=== PATIENT | male | born 1940 | race Caucasian/White ===

== ENCOUNTER 2016-05-11 10:23 | Day surgery (SDC) | payer OTHER ==
[2016-05-10 14:35] VITALS: BMI 24.7
[2016-05-11 12:22] VITALS: TEMP 98
[2016-05-11 14:03] VITALS: BP 117/57; PULSE 46
--- NOTE | 2016-05-12 13:03 | PATH ---
Surgical Pathology Report Patient Name: ASHISH SCHULZ [facility]. Rec. #: [id number] /Age/Gender: 1940 (Age: 76) / M Account: [id number] Location: [facility]-ENDOSCOPY Taken: 05/11/2016 Received: 05/11/2016 Reported: 05/12/2016 Physicians: Neville Serna D.O. Specimen(s) Received A: BX PYLORIC ULCER B: BX DUODENAL BULB SCAR C: BX ANTRUM & BODY D: BX DISTAL ESOPHAGUS Clinical History GERD Reflux esophagitis, gastric ulcer, gastritis Final Diagnosis A. PYLORIC ULCER, BIOPSY: GASTRIC ANTRAL-TYPE MUCOSA WITH ACTIVE MODERATE TO MARKED CHRONIC GASTRITIS WITH FOCAL SURFACE ULCERATION AND MILD REACTIVE GASTROPATHY. IMMUNOSTAIN FOR H. PYLORI IS POSITIVE FOR ORGANISMS (MODERATE NUMBER OF ORGANISMS). B. 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 NO HISTOLOGIC EVIDENCE OF GLUTEN SENSITIVE ENTEROPATHY (CELIAC DISEASE). C. STOMACH, ANTRUM AND BODY, BIOPSY: GASTRIC ANTRAL AND NECK SINCE MUCOSA WITH ACTIVE MARKED CHRONIC GASTRITIS. IMMUNOSTAIN FOR H. PYLORI IS POSITIVE FOR ORGANISMS (NUMEROUS ORGANISMS). D. ESOPHAGUS, DISTAL, BIOPSY: SQUAMOUS EPITHELIUM WITH CHRONIC INFLAMMATION AND REFLUX TYPE CHANGES. NO COLUMNAR EPITHELIUM PRESENT (NO INTESTINAL METAPLASIA/VELEZ'S ESOPHAGUS IDENTIFIED). Electronically Signed Jaron Choi M.D. Gross Description A. Received in formalin, labeled "biopsy pyloric ulcer" is a louis, irregular portion of soft tissue measuring 0.2 cm in greatest dimension. The specimen is submitted in toto in one cassette. B. Received in formalin, labeled "biopsy duodenal bulb scar" are 3 louis, irregular portions of soft tissue averaging 0.1 cm in greatest dimension. The specimens are submitted in toto in one cassette. C. Received in formalin, labeled "biopsy antrum and body" are 2 louis, irregular portions of soft tissue averaging 0.2 cm in greatest dimension. The specimens are submitted in toto in one cassette. D. Received in formalin, labeled "biopsy distal esophagus" are 2 louis, irregular portions of soft tissue averaging 0.1 cm in greatest dimension. The specimens are submitted in toto in one cassette. 05/11/201605/11/2016
== END 2016-05-11 13:30 | disposition home or self-care (01) ==
LOC: JASU-ENDO 10:23
PROVIDERS: ATTEND Internal Medicine Gastroenterology
PROC: 0DB68ZX Excision of Stomach, Via Natural or Artificial Opening Endoscopic, Diagnostic (ICD-10-PCS; 2016-05-11)
PROC: 0DB58ZX Excision of Esophagus, Via Natural or Artificial Opening Endoscopic, Diagnostic (ICD-10-PCS; 2016-05-11)
PROC: 0DB98ZX Excision of Duodenum, Via Natural or Artificial Opening Endoscopic, Diagnostic (ICD-10-PCS; principal; 2016-05-11 11:30)
DX: K21.0 Gastro-esophageal reflux disease with esophagitis (principal); K25.9 Gastric ulcer, unspecified as acute or chronic, without hemorrhage or perforation
CPT/HCPCS: 88305-TC; 88342-TC

== ENCOUNTER 2016-05-18 07:47 | Day surgery (SDC) | payer OTHER ==
[2016-05-17 13:11] VITALS: BMI 24.7
[2016-05-18] MEDS ORDERED: LIDOCAINE HCL/PF 1% SDV 5ML VIAL ONE (09:07)
[2016-05-18] MEDS ORDERED: PROPOFOL 20 ML ONE ×4 (09:07)
[2016-05-18 09:53] VITALS: TEMP 98.2
[2016-05-18 10:31] VITALS: BP 102/56; PULSE 54
== END 2016-05-18 10:56 | disposition home or self-care (01) ==
LOC: JASU-ENDO 07:47
PROVIDERS: ATTEND Internal Medicine Gastroenterology
PROC: 0DJD8ZZ Inspection of Lower Intestinal Tract, Via Natural or Artificial Opening Endoscopic (ICD-10-PCS; principal; 2016-05-18 09:00)
DX: Z12.11 Encounter for screening for malignant neoplasm of colon (principal); K57.30 Diverticulosis of large intestine without perforation or abscess without bleeding; K64.4 Residual hemorrhoidal skin tags

== ENCOUNTER 2018-09-28 14:37 | Inpatient (IN) | payer OTHER | END 2018-09-29 18:26 | disposition home or self-care (01) | LOC: JER 14:37 → JERBED 16:58 → J4W 21:00 ==

== ENCOUNTER 2019-04-26 04:34 | Day surgery (SDC) | payer OTHER ==
[2019-04-20 14:19] VITALS: BMI 22.8
[2019-04-26] MEDS ORDERED: ROCURONIUM BROMIDE 50 MG/5 ML SYRINGE ONE (11:27)
[2019-04-26] MEDS ORDERED: PROPOFOL 20 ML ONE (11:40)
--- NOTE | 2019-04-26 12:21 | PROC ---
Procedure Note Procedure: Procedure Note Under informed consent a bilateral Fiberoptic Bronchoscopy was performed. The patient was placed under anesthesia and intubated. The bronchoscope was inserted via the ETT and advanced to the walt which appeared sharp. The left mainstem was then entered and a complete inspection bronchoscopy was performed. Abnormal LLL anatomy noted due to previous resection. There was minimal thin secretions noted. No endobronchial lesions. The bronchoscope was withdrawn to the walt. The right mainstem was entered and a complete inspection bronchscopy was performed. There was minimal thin secretions noted. No endobronchial lesions noted. The bronchoscope was then positioned at the right middle lobe segments. No gross abnormalities were noted. Washings, brushings, and biopsies were taken from the middle and lateral lobes and sent for appropriate testing. The bronchoscope was withdrawn from the patient. No complications were noted. Patient to be transferred to the PACU and CXR to be completed to R/O PTX. Dr Hanson
[2019-04-26] MEDS ORDERED: oxyCODONE HCL 5 MG TABLET PO PRN (12:35)
[2019-04-26] MEDS ORDERED: ONDANSETRON 4 MG/2 ML VIAL IVPUSH PRN (12:35)
[2019-04-26] MEDS ORDERED: LACTATED RINGERS SOLUTION 1,000 ML IV SCH (12:45)
[2019-04-26 15:16] VITALS: BP 130/76; PULSE 51; TEMP 97.8
--- NOTE | 2019-04-27 12:51 | PATH ---
Cytology Non-Gynecological Report Patient Name: ASHISH SCHULZ [facility] [place]. Rec. #: [id number] /Age/Gender: 1940 (Age: 79) / M Account: [id number] Location: [facility] Taken: 04/26/2019 Received: 04/26/2019 Reported: 04/27/2019 Physicians: Segundo Hanson M.D. Specimen(s) Received A: BRONCHIAL WASHING B: BRONCHIAL BRUSHING MEDIAL SEGMENT RIGHT MIDDLE LOBE C: BRONCHIAL BRUSHING LATERAL SEGMENT RIGHT MIDDLE LOBE Clinical History Right lung mass, no endobronchial lesion Final Diagnosis A. BRONCHIAL WASHING FOR CYTOLOGY: SATISFACTORY FOR EVALUATION. NO MALIGNANT CELLS IDENTIFIED. BRONCHIAL CELLS AND ALVEOLAR MACROPHAGES PRESENT. B. BRONCHIAL BRUSHING, MEDIAL SEGMENT, MIDDLE LOBE, RIGHT, FOR CYTOLOGY: SATISFACTORY FOR EVALUATION. NO MALIGNANT CELLS IDENTIFIED. BRONCHIAL CELLS AND ISOLATED DEGENERATED MACROPHAGES PRESENT. C. BRONCHIAL BRUSHING, LATERAL SEGMENT, MIDDLE LOBE, RIGHT, FOR CYTOLOGY: SATISFACTORY FOR EVALUATION. NO MALIGNANT CELLS IDENTIFIED. BRONCHIAL CELLS AND ALVEOLAR MACROPHAGES PRESENT. Comment: See concurrent materials ([id number]). Electronically Signed Gail Rice M.D. Gross Description A. Approximately 10 cc of bloody fluid received fresh. One cytofunnel prepared and Pap stained. One cellblock prepared. B. Received brush in approximately 30 cc of clear fluid fixed in 50% alcohol. One cytofunnel and direct smear prepared and Pap stained. One cellblock prepared. C. Received brush in approximately 30 cc of clear fluid fixed in 50% alcohol. One cytofunnel and direct smear prepared and Pap stained. One cellblock prepared.
--- NOTE | 2019-04-27 13:05 | PATH ---
Surgical Pathology Report Patient Name: ASHISH SCHULZ [facility]. Rec. #: [id number] /Age/Gender: 1940 (Age: 79) / M Account: [id number] Location: [facility] Taken: 04/26/2019 Received: 04/26/2019 Reported: 04/27/2019 Physicians: Segundo Hanson M.D. Specimen(s) Received RIGHT MIDDLE LOBE BIOPSY Clinical History Right lung mass Final Diagnosis MIDDLE LOBE, RIGHT, BRONCHOSCOPY WITH BIOPSY: BENIGN BRONCHIAL MUCOSA WITH FOCAL MILD FIBROSIS. NO MALIGNANCY IDENTIFIED. DEEPER LEVELS HAVE BEEN EXAMINED. Comment: Suggest clinical and radiologic correlation. See concurrent cytology ([id number]) Electronically Signed Gail Rice M.D. Gross Description Received in formalin labeled "biopsy of right middle lobe," is a 0.4 x 0.3 x 0.1 cm aggregate of louis soft tissue fragments. The formalin is filtered and the specimen is entirely submitted in one cassette. /04/26/2019 saudi04/26/2019
== END 2019-04-26 15:00 | disposition home or self-care (01) ==
LOC: JASU-SURG 04:34
PROVIDERS: ATTEND Internal Medicine Pulmonary Disease
PROC: 0BDD8ZX Extraction of Right Middle Lung Lobe, Via Natural or Artificial Opening Endoscopic, Diagnostic (ICD-10-PCS; 2019-04-26)
PROC: 0BB58ZX Excision of Right Middle Lobe Bronchus, Via Natural or Artificial Opening Endoscopic, Diagnostic (ICD-10-PCS; principal; 2019-04-26 11:30)
DX: D14.31 Benign neoplasm of right bronchus and lung (principal)
CPT/HCPCS: 71045-TC-FY; 76000-TC-FY; 87070; 87075; 87102; 87116; 87205; 87206; 87210; 88104; 88108; 88305-TC; 94760

== ENCOUNTER 2019-06-12 16:44 | Inpatient (IN) | payer OTHER ==
--- NOTE | 2019-06-12 16:59 | PDOC ---
Rapid Medical Evaluation Chief Complaint: Lightheaded Time Seen by Provider: 06/12/19 16:57 Medical Evaluation: Allergies Allergy/AdvReac Type Severity Reaction Status Date / Time No Known Allergies Allergy Verified 06/12/19 16:51 Vital Signs Temp Pulse Resp BP Pulse Ox 98.3 F 63 18 128/62 97 06/12/19 16:52 06/12/19 16:52 06/12/19 16:52 06/12/19 16:52 06/12/19 16:52 06/12/19 16:57 Pt presents for dizziness and headache starting yesterday. He has a diagnosis of vertigo however, he states this episode was different from his usual dizziness. Exam: No gross neuro deficits Orders: CT, labs, EKG Pt to proceed to the ER for further evaluation Discharge Disposition - Diagnosis Dizziness - Referrals - Patient Instructions - Post Discharge Activity
[2019-06-12 17:25] LABS: BASO % 0.7 % (0-2.0); EOS % 0.6 % (0-4.5); HEMATOCRIT 33.6 % (35.4-49); HEMOGLOBIN 11.3 GM/dL (11.7-16.9); LYMPH % 20.4 % (8-40); MCH 32.5 pg (25.7-33.7); MCHC 33.7 g/dl (32.0-35.9); MEAN CELL VOLUME 96.5 fl (80-96); MEAN PLT VOLUME 8.1 fl (7.5-11.1); MONO % 6.6 % (3.8-10.2); NEUT % 71.7 % (42.8-82.8); PLATELET COUNT 147 K/MM3 (134-434); RBC 3.48 M/mm3 (4.00-5.60); WHITE BLOOD COUNT 4.7 K/mm3 (4.0-10.0)
[2019-06-12 17:26] LABS: PH,URINE 6.5 (5.0-8.0); URINE APPEARANCE CLEAR; URINE BILIRUBIN NEGATIVE (NEGATIVE); URINE COLOR YELLOW; URINE GLUCOSE (UA) NEGATIVE (NEGATIVE); URINE KETONE NEGATIVE (NEGATIVE); URINE LEUK ESTERASE NEGATIVE (NEGATIVE); URINE NITRITE NEGATIVE (NEGATIVE); URINE PROTEIN NEGATIVE (NEGATIVE); URINE UROBILINOGEN 0.2 mg/dL (0.2-1.0)
--- NOTE | 2019-06-12 17:54 | PDOC ---
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 Pt states that yesterday when he was driving he had sudden onset of vertigo with R sided facial pains which felt like pins and needles and felt the R side of his face twitching. He pulled over and stated the episode lasted for 5 minutes. Does not know if he lost consciousness but the episode resolved and he went home. Today pt states he was walking outside, had sudden onset of vertigo and stated he was making a repetitive noise with his mouth and had a headache. Episode lasted a few minutes and resolved. Pt states he did not lose consciousness but grabbed on to a side rail to prevent him from falling. He has not had symptoms like this before. He denies incontinence during these episodes. He currently denies tinnitus, headache, changes in vision, numbness/ tingling, weakness, ataxia, head injuries, chest pain, sob, abdominal pain, n/v/ d, recent illnesses, recent travel, recent surgeries. Denies use of drugs, alcohol. PMD: Ivy Robles Neuro: Meri? Cards: Fredi Onc: Edwige PMH: see hpi PSH: see hpi Meds: Micardis, Flomax Allergies: nkda Social: denies Past History - Past Medical History Allergies/Adverse Reactions: Allergies Allergy/AdvReac Type Severity Reaction Status Date / Time No Known Allergies Allergy Verified 06/12/19 16:51 Home Medications: Ambulatory Orders Tamsulosin HCl [Flomax] 0.4 mg PO HS 05/10/16 Telmisartan [Micardis] 20 mg PO DAILY 05/10/16 Cancer: Yes (lung) Cardiac Disorders: (bradycardia) COPD: No GI Disorders: Yes (REFLUX) Disorders: Yes (BPH) HTN: Yes Thyroid Disease: Yes (vertigo) - Surgical History Lung Surgery: Yes (Left Lower lobe resection) - Psycho Social/Smoking Cessation Hx Smoking History: Former smoker Have you smoked in the past 12 months: No If you are a former smoker, when did you quit?: 1996 Information on smoking cessation initiated: No Hx Alcohol Use: No Drug/Substance Use Hx: No Substance Use Type: None Hx Substance Use Treatment: No Review of Systems - Review of Systems Constitutional: No: Symptoms Reported HEENTM: No: Symptoms Reported Respiratory: No: Symptoms reported Cardiac (ROS): No: Symptoms Reported ABD/GI: No: Symptoms Reported : No: Symptoms Reported Musculoskeletal: No: Symptoms Reported Integumentary: No: Symptoms Reported Neurological: Yes: See HPI *Physical Exam - Vital Signs Last Vital Signs Temp Pulse Resp BP Pulse Ox 98.3 F 63 18 128/62 97 06/12/19 16:52 06/12/19 16:52 06/12/19 16:52 06/12/19 16:52 06/12/19 16:52 - Physical Exam General Appearance: Yes: Nourished, Appropriately Dressed, Thin. No: Apparent Distress HEENT: positive: EOMI, BARBRA, Normal ENT Inspection, TMs Normal, Pharynx Normal. negative: Scleral Icterus (R), Scleral Icterus (L) Neck: positive: Trachea midline, Supple. negative: Carotid bruit, Lymphadenopathy (R), Lymphadenopathy (L) Respiratory/Chest: positive: Lungs Clear, Normal Breath Sounds. negative: Crackles, Rales, Rhonchi, Stridor, Wheezing Cardiovascular: positive: Regular Rhythm, Regular Rate, S1, S2. negative: Edema , JVD, Murmur Vascular Pulses: Dorsalis-Pedis (R): 2+, Doralis-Pedis (L): 2+ Gastrointestinal/Abdominal: positive: Normal Bowel Sounds, Soft. negative: Tender Musculoskeletal: positive: Normal Inspection. negative: CVA Tenderness Extremity: positive: Normal Capillary Refill. 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 negative: Facial Droop, Numbness, Sensory Deficit, Confused, Disoriented ED Treatment Course - LABORATORY CBC & Chemistry Diagram: 06/12/19 17:12 06/12/19 17:12 - ADDITIONAL ORDERS Additional order review: Laboratory Results 06/12/19 17:12 Urine Color Yellow Urine Appearance Clear Urine pH 6.5 Ur Specific Watts 1.006 L Urine Protein Negative Urine Glucose (UA) Negative Urine Ketones Negative Urine Blood Negative Urine Nitrite Negative Urine Bilirubin Negative Urine Urobilinogen 0.2 Ur Leukocyte Esterase Negative 06/12/19 17:12 RBC 3.48 L MCV 96.5 H MCHC 33.7 RDW 14.0 MPV 8.1 Neutrophils % 71.7 Lymphocytes % 20.4 D Monocytes % 6.6 Eosinophils % 0.6 Basophils % 0.7 Medical Decision Making - Medical Decision Making 06/12/19 18:12 79y M presenting to ED for vertigo with facial pains/convulsions. vitals wnl ddx includes but not limited to partial seizures, cva, encephalitis, trigeminal neuralgia, GCA, electrolyte abnormality, malignancy, migraine low suspicion for CVA given symptoms. labs ordered by RME as well as CT. pt asymptomatic at this time, normal neurological exam. Negative HINTS will consult neurology 06/12/19 18:38 CT per my read showing a L frontal lobe hemorrhage with possible underlying metastatic disease surrounding edema, no midline shift. consulted neurology; recommended consult to nsgy. Keppra 500mg BID. NSGY- no surgery at this time; likely mets from melanoma. recommended steroids. will give Decadron 10mg iv. Discussed case with Dr. Robles; accepts pt. labs at baseline however slight bump in Cr and BUN elevation; will give fluids. ekg: sinus bradycardia with 1st degree AV block at 50bpm pr 250 no mar or depressions. no twi. will order TS, coags. Giving 1g keppra and 10mg decadron. Explained findings to patient and next steps. pt is hemodynamically stable; ICH score of 0. NIHSS 0 does not require acute intervention at this time. will admit. Discharge - Discharge Information Problems reviewed: Yes Clinical Impression/Diagnosis: Brain mass, Intracranial hemorrhage Condition: Stable - Admission Yes - Follow up/Referral - Patient Discharge Instructions - Post Discharge Activity
[2019-06-12 17:59] LABS: ALBUMIN 3.4 g/dl (3.4-5.0); ALK PHOS 85 U/L (45-117); ANION GAP 7 MMOL/L (8-16); BILIRUBIN,TOTAL 0.4 mg/dL (0.2-1); BLOOD UREA NITROGEN 18.3 mg/dL (7-18); CALCIUM 9.1 mg/dL (8.5-10.1); CHLORIDE 103 mmol/L (98-107); CO2 26 mmol/L (21-32); CREATININE 1.3 mg/dL (0.55-1.3); GLUCOSE,RANDOM 101 mg/dL (74-106); POTASSIUM 4.4 mmol/L (3.5-5.1); SGOT/AST 25 U/L (15-37); SGPT/ALT 28 U/L (13-61); SODIUM 137 mmol/L (136-145); TOT PROT 8.7 g/dl (6.4-8.2)
--- NOTE | 2019-06-12 18:01 | PDOC ---
Attending Attestation - Resident Resident Name: Nena Butcher - ED Attending Attestation I have performed the following: I have examined & evaluated the patient, The case was reviewed & discussed with the resident, I agree w/resident's findings & plan, Exceptions are as noted - HPI HPI: 06/12/19 17:59 79-year-old male with past medical history of hypertension, lung cancer status post right lower lobe lobectomy in 2018 and BPH experienced 2 episodes of sudden dizziness associated with headache and involuntary facial twitching. these episodes lasted about 5 minutes each - Physicial Exam PE: 06/12/19 18:02 79 yo male in no acute distress presents after several w episodes of headache, sudden dizziness and involuntary facial twitching 06/12/19 18:03 head ncat eyes ana paula eomi neck supple lungs cta b/l cvs [id number] abd nontedner skin waRM AND DRY EXTREMTIES NO EDEMA NEURO AXOX3,AMBULATORY - Medical Decision Making 06/12/19 18:01 79-year-old male with a history of vertigo and lung cancer has been followed by a neurologist for the vertigo in the past Plan head CT, labs, neuro consult 06/12/19 18:37 ct scan head +L frontal lobe hemorrhage w possible underlying neoplasm plan contact Dr Robles,neurology 06/12/19 18:54
[2019-06-12] MEDS ORDERED: SODIUM CHLORIDE 1,000 ML IV STA (18:23)
[2019-06-12] MEDS ORDERED: levETIRAcetam 500 MG/5 ML INJECTION VIAL IVPB ONE ×2 (18:53→19:20)
[2019-06-12] MEDS ORDERED: DEXAMETHASONE SOD PHOSPHATE 10 MG/1 ML VIAL IVPUSH ONE (19:07)
[2019-06-12] MEDS ORDERED: DEXAMETHASONE SOD PHOSPHATE 10 MG/1 ML VIAL ONE (19:21)
[2019-06-12 20:19] LABS: INR 1.15 (0.83-1.09); PROTHROMBIN TIME (PATIENT) 13.6 SEC (9.7-13.0)
[2019-06-12] MEDS ORDERED: levETIRAcetam 500 MG/5 ML INJECTION VIAL IVPB SCH (22:00)
[2019-06-12] MEDS ORDERED: ACETAMINOPHEN 325 MG TABLET (FP) PO PRN (22:59)
[2019-06-13] MEDS ORDERED: levETIRAcetam 500 MG/5 ML INJECTION VIAL IVPB ONE (08:15)
[2019-06-13] MEDS ORDERED: LOSARTAN POTASSIUM 50 MG TABLET (FP) ONE (08:15)
[2019-06-13] MEDS ORDERED: TAMSULOSIN HCL 0.4 MG CAP ONE (08:16)
[2019-06-13] MEDS: TAMSULOSIN HCL 0.4 MG CAP PO SCH (08:33)
[2019-06-13] MEDS: levETIRAcetam 500 MG/5 ML INJECTION VIAL IVPB SCH ×3 (08:33→21:26)
--- NOTE | 2019-06-13 08:46 | CONSULT ---
Consult - text type - Consultation Consultation Note: Neurology History of Present Illness - General Chief Complaint: Lightheaded History Source: Patient Exam Limitations: No Limitations PCP: Dr. 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 Pt stated that on day prior to admission when he was driving he had sudden onset of vertigo with R sided facial pains which felt like pins and needles and felt the R side of his face twitching. He pulled over and stated the episode lasted for 5 minutes. Does not know if he lost consciousness but the episode resolved and he went home. On day of admission, pt stated he was walking outside, had sudden onset of vertigo and stated he was making a repetitive noise with his mouth and had a headache. Episode lasted a few minutes and resolved. Pt stated he did not lose consciousness but grabbed on to a side rail to prevent him from falling. He has not had symptoms like this before. He denied incontinence during these episodes. He denied tinnitus, headache, changes in vision, numbness/tingling, weakness, ataxia, head injuries, chest pain, sob, abdominal pain, n/v/d, recent illnesses, recent travel, recent surgeries. Denied use of drugs, alcohol. I was contacted by the emergency department evening of admission and advised Ct of head performed and showed a solitary 2.7x1.7x1.7 cm left frontal lobe hemorrhage is seen with mild surrounding edemaa-possible underlying neoplastic disease. Chronic sphenoid sinusitis. discussed with Dr. Karan grady also reviewed the images and felt lesion was suspicious for metastatic melanoma. I advised starting patient on Keppra for seizure prophylaxis, neurosurgery note reviewed, Decadron recommended. Next steps would be to obtain MRI with and without contrast to further delineate the lesion and for oncology management if lesion is confirmed to be metastatic melanoma. I discussed the findings along with plan with the patient who was in agreement. Past History Cancer: Yes (lung) Cardiac Disorders: (bradycardia) COPD: No GI Disorders: Yes (REFLUX) Disorders: Yes (BPH) HTN: Yes Thyroid Disease: Yes (vertigo) - Family History HTN Surgical History Lung Surgery: Yes (Left Lower lobe resection) - Psycho Social/Smoking Cessation Hx Smoking History: Former smoker Have you smoked in the past 12 months: No If you are a former smoker, when did you quit?: 1996 Information on smoking cessation initiated: No Hx Alcohol Use: No Drug/Substance Use Hx: No Substance Use Type: None Hx Substance Use Treatment: No Review of Systems - Review of Systems Constitutional: No: Symptoms Reported HEENTM: No: Symptoms Reported Respiratory: No: Symptoms reported Cardiac (ROS): No: Symptoms Reported ABD/GI: No: Symptoms Reported : No: Symptoms Reported Musculoskeletal: No: Symptoms Reported Integumentary: No: Symptoms Reported Neurological: Yes: See HPI Allergies/Adverse Reactions: Allergies Allergy/AdvReac Type Severity Reaction Status Date / Time No Known Allergies Allergy Verified 06/12/19 16:51 Home Medications: Ambulatory Orders Tamsulosin HCl [Flomax] 0.4 mg PO HS 05/10/16 Telmisartan [Micardis] 20 mg PO DAILY 05/10/16 Active Medications Acetaminophen (Tylenol -) 650 mg PO Q6H PRN PRN Reason: PAIN 1-5 Levetiracetam (Keppra Injection -) 500 mg IVPB BID [facility] Last Admin: 06/13/19 08:33 Dose: 500 mg Losartan Potassium (Cozaar -) 25 mg PO DAILY [facility] Tamsulosin HCl (Flomax -) 0.4 mg PO DAILY@0830 [facility] Last Admin: 06/13/19 08:33 Dose: 0.4 mg *Physical Exam - Vital Signs Vital Signs Period Temp Pulse Resp BP Sys/Giordano Pulse Ox Last 24 Hr 97.3 F-98.3 F 40-63 15-18 85-128/52-62 96-98 - Physical Exam General Appearance: Yes: Nourished, Appropriately Dressed, Thin. No: Apparent Distress HEENT: positive: EOMI, BARBRA, Normal ENT Inspection, TMs Normal, Pharynx Normal. negative: Scleral Icterus (R), Scleral Icterus (L) Neck: positive: Trachea midline, Supple. negative: Carotid bruit, Lymphadenopathy (R), Lymphadenopathy (L) Respiratory/Chest: positive: Lungs Clear, Normal Breath Sounds. negative: Crackles, Rales, Rhonchi, Stridor, Wheezing Cardiovascular: positive: Regular Rhythm, Regular Rate, S1, S2. negative: Edema , JVD, Murmur Vascular Pulses: Dorsalis-Pedis (R): 2+, Doralis-Pedis (L): 2+ Gastrointestinal/Abdominal: positive: Normal Bowel Sounds, Soft. negative: Tender Musculoskeletal: positive: Normal Inspection. negative: CVA Tenderness Extremity: positive: Normal Capillary Refill. 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 negative: Facial Droop, Numbness, Sensory Deficit, Confused, Disoriented CBCD WBC 4.7 K/mm3 (4.0-10.0) 06/12/19 17:12 RBC 3.48 M/mm3 (4.00-5.60) L 06/12/19 17:12 Hgb 11.3 GM/dL (11.7-16.9) L 06/12/19 17:12 Hct 33.6 % (35.4-49) L 06/12/19 17:12 MCV 96.5 fl (80-96) H 06/12/19 17:12 MCHC 33.7 g/dl (32.0-35.9) 06/12/19 17:12 RDW 14.0 % (11.9-15.9) 06/12/19 17:12 Plt Count 147 K/MM3 (134-434) 06/12/19 17:12 MPV 8.1 fl (7.5-11.1) 06/12/19 17:12 CMP Sodium 137 mmol/L (136-145) 06/12/19 17:12 Potassium 4.4 mmol/L (3.5-5.1) 06/12/19 17:12 Chloride 103 mmol/L (98-107) 06/12/19 17:12 Carbon Dioxide 26 mmol/L (21-32) 06/12/19 17:12 Anion Gap 7 MMOL/L (8-16) L 06/12/19 17:12 BUN 18.3 mg/dL (7-18) H 06/12/19 17:12 Creatinine 1.3 mg/dL (0.55-1.3) 06/12/19 17:12 Random Glucose 101 mg/dL (74-106) 06/12/19 17:12 Calcium 9.1 mg/dL (8.5-10.1) 06/12/19 17:12 Total Bilirubin 0.4 mg/dL (0.2-1) 06/12/19 17:12 AST 25 U/L (15-37) 06/12/19 17:12 ALT 28 U/L (13-61) 06/12/19 17:12 Alkaline Phosphatase 85 U/L (45-117) 06/12/19 17:12 Total Protein 8.7 g/dl (6.4-8.2) H 06/12/19 17:12 Albumin 3.4 g/dl (3.4-5.0) 06/12/19 17:12 CARDIAC ENZYMES Troponin I < 0.02 ng/ml (0.00-0.05) 06/12/19 17:12 Plan: 79y M, known to me from office visit with PMH of 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 Pt stated that on day prior to admission when he was driving he had sudden onset of vertigo with R sided facial pains which felt like pins and needles and felt the R side of his face twitching. He pulled over and stated the episode lasted for 5 minutes. Does not know if he lost consciousness but the episode resolved and he went home. On day of admission, pt stated he was walking outside, had sudden onset of vertigo and stated he was making a repetitive noise with his mouth and had a headache. Episode lasted a few minutes and resolved. Pt stated he did not lose consciousness but grabbed on to a side rail to prevent him from falling. He has not had symptoms like this before. He denied incontinence during these episodes. He denied tinnitus, headache, changes in vision, numbness/tingling, weakness, ataxia, head injuries, chest pain, sob, abdominal pain, n/v/d, recent illnesses, recent travel, recent surgeries. Denied use of drugs, alcohol. I was contacted by the emergency department evening of admission and advised Ct of head performed and showed a solitary 2.7x1.7x1.7 cm left frontal lobe hemorrhage is seen with mild surrounding edemaa-possible underlying neoplastic disease. Chronic sphenoid sinusitis. discussed with Dr. Karan grady also reviewed the images and felt lesion was suspicious for metastatic melanoma. I advised starting patient on Keppra for seizure prophylaxis, neurosurgery note reviewed, Decadron added. Next steps would be to obtain MRI with and without contrast to further delineate the lesion and for oncology management if lesion is confirmed to be metastatic melanoma. Monitor blood pressure, maintain normotensive range. Fall precautions.
--- NOTE | 2019-06-13 08:47 | PN ---
Progress Note (short form) - Note Progress Note: NEUROSURGERY CONSULT DICTATED Pt examined in ED CT reviewed History obtained h/o metastatic melanoma (R facial original site) to the lungs s/p partial L lower lobectomy in 2018, HTN, BPH c/o vertigo with "facial convulsions" 2 days ago. When he was driving experienced sudden onset vertigo with R sided facial pain/paresthesia with R side facial twitching. Lasted 5 minutes.? LOC. Yesterday also sudden onset vertigo and stated he was making a repetitive noise with his mouth. + associated headache. PE: AF, BP borderline low, NE 40-60's (though asymptomatic per pt and is reported to be chronic) HEENT- NC/AT; Neck- supple; Cor- RR; Lungs- CTA B; Abd- benign, + BS; Ext- no sign of DVT CN- intact II-XII; Motor- 5/5 without drift; Sensation- intact LT; DTR- 1+/ hyporefelxic CT Head- L frontal 2.5 x 2 x 2 cm ICH with surrounding edema; mild mass effect Prior head CT (09-28-2018)- negative Probable hemorrhagic L frontal metastatic melanoma with edema Decadron for edema Keppra for sz prophylaxis Brain MRI with/without jyoti Med onc input - Dr Gibbons is oncologist If persistent bradycardia and hypotension consider cardiology input per PMD Further tx plan recommendations after MRI (depending on solitary vs multiple lesions) D/w ED team
[2019-06-13] MEDS ORDERED: PT OWN MED DRAWER 7, Y5N ONE (09:33)
--- NOTE | 2019-06-13 09:50 | HP ---
Admitting History and Physical - Primary Care Physician PCP: Nick Robles - Admission Chief Complaint: Facial twiching, GARCIA, vertigo History of Present Illness: Pt with known PMHx/o right face melanoma, lung metastasis, s/p lung left lower lobectomy (2018) experienced possible LOC while driving on Tuesday associated with significant GARCIA; Tuesday pt passed out while walking, associated with GARCIA, and later developed facial twitching. Pt decided to come to ER where was found to have brain hemorrhage. 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) Heme/Onc: Yes: Anemia - Past Surgical History Additional Past Surgical History: Left lower lung lobectomy (2018) - Smoking History Smoking history: Former smoker Have you smoked in the past 12 months: No If you are a former smoker, when did you quit?: 1996 - Alcohol/Substance Use Hx Alcohol Use: No History of Substance Use: reports: None - Social History ADL: Independent History of Recent Travel: No Home Medications - Allergies Allergies/Adverse Reactions: Allergies Allergy/AdvReac Type Severity Reaction Status Date / Time No Known Allergies Allergy Verified 06/12/19 16:51 - Home Medications Home Medications: Ambulatory Orders Tamsulosin HCl [Flomax] 0.4 mg PO HS 05/10/16 Telmisartan [Micardis] 20 mg PO DAILY 05/10/16 Review of Systems - Review of Systems Constitutional: denies: Chills, Fever Eyes: denies: Blurred Vision, Double Vision, Recent Change in Vision HENT: denies: Nasal Congestion, Throat Pain Neck: denies: Decreased ROM, Lumps Cardiovascular: denies: Chest Pain, Edema, Palpitations Respiratory: denies: Cough, SOB, Wheezing Gastrointestinal: denies: Abdominal Pain, Nausea, Vomiting Genitourinary: denies: Burning, Dysuria, Flank Pain Musculoskeletal: denies: Back Pain, Joint Swelling Integumentary: denies: Blister, Rash Neurological: denies: Change in Speech, Confusion, Unsteady Gait Endocrine: denies: Excessive Sweating, Intolerance to Cold Hematology/Lymphatic: denies: Easily Bruised, Excessive Bleeding Psychiatric: denies: Anxiety, Depression Physical Examination Vital Signs: Vital Signs Temperature 97.3 F L 06/13/19 02:41 Pulse Rate 46 L 06/13/19 07:02 Respiratory Rate 18 06/13/19 07:02 Blood Pressure 85/55 L 06/13/19 07:02 O2 Sat by Pulse Oximetry (%) 98 06/13/19 07:02 Constitutional: Yes: No Distress, Calm Eyes: Yes: EOM Intact, PERRL HENT: No: Drooling, Pharyngeal Erythema, Rhinnorhea, Thrush Neck: Yes: Trachea Midline. No: Lymphadenopathy Cardiovascular: Yes: Regular Rate and Rhythm, S1, S2 Respiratory: Yes: Regular, CTA Bilaterally. No: Rales Gastrointestinal: Yes: Normal Bowel Sounds, Soft. No: Hepatomegaly ...Rectal Exam: Yes: Deferred Renal/: No: CVA Tenderness - Left, CVA Tenderness - Right Musculoskeletal: No: Back Pain, Joint Swelling Extremities: No: Cold, Cool, Cyanosis Edema: No Neurological: Yes: Alert, Oriented, Other (motor and sensory examination is symmetric in UE. LE, face) Psychiatric: Yes: Alert, Oriented Labs: CBC, BMP 06/12/19 17:12 06/12/19 17:12 Imaging - Results Chest X-ray: Report Reviewed Cat Scan: Report Reviewed Problem List - Problems (1) Intracranial hemorrhage Code(s): I62.9 - NONTRAUMATIC INTRACRANIAL HEMORRHAGE, UNSPECIFIED (2) History of melanoma Code(s): Z85.820 - PERSONAL HISTORY OF MALIGNANT MELANOMA OF SKIN (3) Melanoma metastatic to left lung Code(s): C78.02 - SECONDARY MALIGNANT NEOPLASM OF LEFT LUNG (4) Headache Code(s): R51 - HEADACHE Qualifiers: Headache type: unspecified Headache chronicity pattern: acute headache Intractability: intractable Qualified Code(s): R51 - Headache (5) LOC (loss of consciousness) Code(s): R40.20 - UNSPECIFIED COMA (6) HTN (hypertension) Code(s): I10 - ESSENTIAL (PRIMARY) HYPERTENSION (7) BPH (benign prostatic hyperplasia) Code(s): N40.0 - BENIGN PROSTATIC HYPERPLASIA WITHOUT LOWER URINRY TRACT SYMP Assessment/Plan Admit to monitor bed Neuro Consult Neuro Sx consult Onco consult Keppra for Seizure prophylaxis Steroids for brain edema Brain MRI AM labs.
[2019-06-13] MEDS ORDERED: PATIENT'S OWN MEDICATION (NON-FORMULARY) (Telmisartan [Micardis] 20 MG) PO SCH (10:00)
[2019-06-13] MEDS ORDERED: LOSARTAN POTASSIUM 25 MG TABLET PO SCH (10:00)
--- NOTE | 2019-06-13 10:43 | EKG ---
Test Reason : Blood Pressure : / mmHG Vent. Rate : 050 BPM Atrial Rate : 050 BPM P-R Int : 250 ms QRS Dur : 114 ms QT Int : 450 ms P-R-T Axes : 075 -10 052 degrees QTc Int : 410 ms SINUS BRADYCARDIA WITH 1ST DEGREE A-V BLOCK VOLTAGE CRITERIA FOR LEFT VENTRICULAR HYPERTROPHY ABNORMAL ECG WHEN COMPARED WITH ECG OF 23-APR-2019 15:27, NO SIGNIFICANT CHANGE WAS FOUND Confirmed by Carl Miguel MD ([id number]) on 06/13/2019 10:43:22 AM Referred By: Confirmed By:Carl Miguel MD
[2019-06-13] MEDS ORDERED: DEXAMETHASONE SOD PHOSPHATE 4 MG/1 ML VIAL ONE ×3 (11:02→21:08)
[2019-06-13] MEDS ORDERED: PANTOPRAZOLE 40 MG TABLET ONE (11:02)
[2019-06-13] MEDS: DEXAMETHASONE SOD PHOSPHATE 4 MG/1 ML VIAL IVPUSH SCH ×3 (11:12→21:26)
[2019-06-13] MEDS: PANTOPRAZOLE 40 MG TABLET PO SCH (11:12)
--- NOTE | 2019-06-13 11:15 | CONSULT ---
Consultation: CONSULT SERVICE: Hematology/Oncology Resident HISTORY OF PRESENT ILLNESS: 79M with h/o metastatic melanoma (mets to lungs; s/p LLL segmentectomy), HTN , BPH who originally presented due to vertigo and notable facial twitching. Pt was driving at the time of presentation with his symptoms which occurred suddenly. Pt endorsed numbness and tingling on the R side of his face alongside the twitching. Pt reports the episode lasted 5 minutes after pulling over and then went home immediately. Pt had a repeat episode the next day while walking outside with notable lip smacking and after his episode he developed a unilateral headache suddenly. At this time he went to the ER for further evaluation. Upon work-up in the ED pt was noted to have a 2.7x1.7x1.7cm L Frontal solidary mass with hemorrhage and surrounding edema. Pt was seen by neurosurgery and neurology and the patient was initiated on Keppra and decadron. We were asked to evaluate the patient medically due to underlying neoplastic disease suspected to be his previous melanoma. PMHx: as above PSHx: Melanoma facial resection (2014), Lung resection (2018) SoHx: Tobacco - Former (remote history); quit in 1996 Alcohol - Denies Drugs - Denies REVIEW OF SYSTEMS: As per HPI PHYSICAL EXAMINATION Vital Signs - 24 hr 06/12/19 06/13/19 06/13/19 16:52 01:40 02:41 Temperature 98.3 F 97.3 F L Pulse Rate 63 40 L Pulse Rate [ 48 L Left Radial] Pulse Rate [ Right Radial] Respiratory 18 18 15 Rate Blood Pressure 128/62 98/54 L Blood Pressure 97/52 L [Left] Blood Pressure [Right Arm] O2 Sat by Pulse 97 96 Oximetry (%) 06/13/19 07:02 Temperature Pulse Rate Pulse Rate [ Left Radial] Pulse Rate [ 46 L Right Radial] Respiratory 18 Rate Blood Pressure Blood Pressure [Left] Blood Pressure 85/55 L [Right Arm] O2 Sat by Pulse 98 Oximetry (%) General: NAD, alert, confused, but oriented x3 HEENT: NC/AT,EOMI, AMY, sclera anicteric, no nystagmus, MMM, scar L face Neck: No JVD, no lymphadenopathy, LUNG: CTA b/l without wheezes or crackles. No accessory muscle use CARD: RRR no murmurs ABD: Soft, NT/ND normoactive BS, no guarding : Unremarkable exam of testicles/penis. No melanotic lesions noted Skin: Scar as noted above, no suspicious lesions noted on torso, back, face or limbs NEURO: CN II-XII intact, strength 5/5 in all four extremities, no dysmetria, no dysdiadocokinesia, facial sensation intact in all areas b/l, gait not observed today Laboratory Results - last 24 hr 06/12/19 06/12/19 06/12/19 17:12 17:12 17:12 WBC 4.7 RBC 3.48 L Hgb 11.3 L Hct 33.6 L MCV 96.5 H MCH 32.5 MCHC 33.7 RDW 14.0 Plt Count 147 MPV 8.1 Absolute Neuts (auto) 3.4 Neutrophils % 71.7 Lymphocytes % 20.4 D Monocytes % 6.6 Eosinophils % 0.6 Basophils % 0.7 Nucleated RBC % 0 PT with INR INR Sodium 137 Potassium 4.4 Chloride 103 Carbon Dioxide 26 Anion Gap 7 L BUN 18.3 H Creatinine 1.3 Est GFR (CKD-EPI)AfAm 61.00 Est GFR (CKD-EPI)NonAf 52.63 Random Glucose 101 Calcium 9.1 Total Bilirubin 0.4 AST 25 ALT 28 Alkaline Phosphatase 85 Troponin I < 0.02 Total Protein 8.7 H Albumin 3.4 Urine Color Yellow Urine Appearance Clear Urine pH 6.[address] 1.006 L Urine Protein Negative Urine Glucose (UA) Negative Urine Ketones Negative Urine Blood Negative Urine Nitrite Negative Urine Bilirubin Negative Urine Urobilinogen 0.2 Ur Leukocyte Esterase Negative Blood Type Antibody Screen 06/12/19 06/12/19 19:28 19:28 WBC RBC Hgb Hct MCV MCH MCHC RDW Plt Count MPV Absolute Neuts (auto) Neutrophils % Lymphocytes % Monocytes % Eosinophils % Basophils % Nucleated RBC % PT with INR 13.60 H INR 1.15 H Sodium Potassium Chloride Carbon Dioxide Anion Gap BUN Creatinine Est GFR (CKD-EPI)AfAm Est GFR (CKD-EPI)NonAf Random Glucose Calcium Total Bilirubin AST ALT Alkaline Phosphatase Troponin I Total Protein Albumin Urine Color Urine Appearance Urine pH Ur Specific [place] Urine Protein Urine Glucose (UA) Urine Ketones Urine Blood Urine Nitrite Urine Bilirubin Urine Urobilinogen Ur Leukocyte Esterase Blood Type O POSITIVE Antibody Screen Negative Active Medications Generic Name Dose Route Start Last Admin Trade Name Freq PRN Reason Stop Dose Admin Acetaminophen 650 mg 06/12/19 22:59 Tylenol - PO Q6H PRN PAIN 1-5 Dexamethasone Sodium Phosphate 4 mg 06/13/19 09:15 06/13/19 11:12 Decadron Injection - IVPUSH 4 mg Q6H-IV [facility] Administration Levetiracetam 500 mg 06/13/19 08:00 06/13/19 10:22 Keppra Injection - IVPB Not Given BID [facility] Pantoprazole Sodium 40 mg 06/13/19 10:00 06/13/19 11:12 Protonix - PO 40 mg DAILY [facility] Administration Tamsulosin HCl 0.4 mg 06/13/19 08:30 06/13/19 08:33 Flomax - PO 0.4 mg DAILY@0830 [facility] Administration ASSESSMENT/PLAN: Metastatic Melanoma 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 L Frontal hemorrhage with underlying neoplastic disease Focal seizure 2/2 to above --Agree with steroids: Decadron 4mg q6h --Will follow-up with MRI w/ and w/o contrast for evaluation of underlying mass --Likely underlying neoplastic disease would benefit from RT, however will need to resolve acute hemorrhage as RT known risk can precipitate hemorrhage --Will need to discuss future planning with radiation-oncology --Neurosurgery and neurology on board and appreciate recommendations Case to be discussed Tj Degroot DO - IM PGY-3 Visit type - Emergency Visit Emergency Visit: Yes ED Registration Date: 06/12/19 Care time: The patient presented to the Emergency Department on the above date and was hospitalized for further evaluation of their emergent condition. - New Patient This patient is new to me today: Yes Date on this admission: 06/13/19 - Critical Care Critical Care patient: No ATTENDING PHYSICIAN STATEMENT I saw and evaluated the patient. I reviewed the resident's note and discussed the case with the resident. I agree with the resident's findings and plan as documented. SUBJECTIVE: OBJECTIVE: ASSESSMENT AND PLAN:
--- NOTE | 2019-06-13 14:56 | CON.CARD ---
Consult Consult Specialty:: Cardiology - History of Present Illness History of Present Illness: 79M with h/o metastatic melanoma (mets to lungs; s/p LLL segmentectomy), HTN, BPH who originally presented due to vertigo and notable facial twitching. Pt was driving at the time of presentation with his symptoms which occurred suddenly. Pt endorsed numbness and tingling on the R side of his face alongside the twitching. Pt reports the episode lasted 5 minutes after pulling over and then went home immediately. Pt had a repeat episode the next day while walking outside with notable lip smacking and after his episode he developed a unilateral headache suddenly. At this time he went to the ER for further evaluation. Upon work-up in the ED pt was noted to have a 2.7x1.7x1.7cm L Frontal solidary mass with hemorrhage and surrounding edema. Pt was seen by neurosurgery and neurology and the patient was initiated on Keppra and decadron. We were asked to evaluate the patient medically due to underlying neoplastic disease suspected to be his previous melanoma. 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, mild PHT 2011 - History Source History Provided By: Patient, Medical Record - Past Medical History Cardio/Vascular: Yes: HTN Pulmonary: Yes: Other (lung CA) - Alcohol/Substance Use Hx Alcohol Use: No History of Substance Use: reports: None - Smoking History Smoking history: Former smoker Have you smoked in the past 12 months: No If you are a former smoker, when did you quit?: 1996 - Social History ADL: Independent History of Recent Travel: No Home Medications - Allergies Allergies/Adverse Reactions: Allergies Allergy/AdvReac Type Severity Reaction Status Date / Time No Known Allergies Allergy Verified 06/12/19 16:51 - Home Medications Home Medications: Ambulatory Orders Tamsulosin HCl [Flomax] 0.4 mg PO HS 05/10/16 Telmisartan [Micardis] 20 mg PO DAILY 05/10/16 Review of Systems - Review of Systems Constitutional: reports: No Symptoms Eyes: reports: No Symptoms HENT: reports: No Symptoms Neck: reports: No Symptoms Cardiovascular: reports: No Symptoms Respiratory: reports: No Symptoms Gastrointestinal: reports: No Symptoms Genitourinary: reports: No Symptoms Breasts: reports: No Symptoms Reported Musculoskeletal: reports: No Symptoms Integumentary: reports: No Symptoms Neurological: reports: Seizure Endocrine: reports: No Symptoms Hematology/Lymphatic: reports: No Symptoms Psychiatric: reports: No Symptoms Vital Signs: Vital Signs Temperature 97.3 F L 06/13/19 11:43 Pulse Rate 44 L 06/13/19 11:43 Respiratory Rate 18 06/13/19 11:43 Blood Pressure 116/69 06/13/19 11:43 O2 Sat by Pulse Oximetry (%) 97 06/13/19 11:43 Constitutional: Yes: Well Nourished, No Distress, Calm Eyes: Yes: WNL, Conjunctiva Clear, EOM Intact HENT: Yes: WNL, Atraumatic, Normocephalic Neck: Yes: WNL, Supple, Trachea Midline Respiratory: Yes: WNL, Regular, CTA Bilaterally Gastrointestinal: Yes: WNL, Normal Bowel Sounds Renal/: Yes: WNL Cardiovascular: Yes: WNL, Regular Rate and Rhythm Musculoskeletal: Yes: WNL Extremities: Yes: WNL Edema: No Integumentary: Yes: WNL Neurological: Yes: Alert, Oriented ...Motor Strength: WNL Psychiatric: Yes: WNL, Alert, Oriented - Other Data Labs, Other Data: CBC, BMP 06/12/19 17:12 06/12/19 17:12 INR, PTT INR 1.15 (0.83-1.09) H 06/12/19 19:28 Troponin, BNP 06/12/19 17:12 Troponin I < 0.02 Troponin, BNP 06/12/19 17:12 Troponin I < 0.02 Laboratory Tests 06/12/19 06/12/19 06/12/19 17:12 17:12 17:12 WBC 4.7 RBC 3.48 L Hgb 11.3 L Hct 33.6 L MCV 96.5 H MCH 32.5 MCHC 33.7 RDW 14.0 Plt Count 147 MPV 8.1 Absolute Neuts (auto) 3.4 Neutrophils % 71.7 Lymphocytes % 20.4 D Monocytes % 6.6 Eosinophils % 0.6 Basophils % 0.7 Nucleated RBC % 0 PT with INR INR Sodium 137 Potassium 4.4 Chloride 103 Carbon Dioxide 26 Anion Gap 7 L BUN 18.3 H Creatinine 1.3 Est GFR (CKD-EPI)AfAm 61.00 Est GFR (CKD-EPI)NonAf 52.63 Random Glucose 101 Calcium 9.1 Total Bilirubin 0.4 AST 25 ALT 28 Alkaline Phosphatase 85 Troponin I < 0.02 Total Protein 8.7 H Albumin 3.4 Urine Color Yellow Urine Appearance Clear Urine pH 6.5 Ur Specific [place] 1.006 L Urine Protein Negative Urine Glucose (UA) Negative Urine Ketones Negative Urine Blood Negative Urine Nitrite Negative Urine Bilirubin Negative Urine Urobilinogen 0.2 Ur Leukocyte Esterase Negative Blood Type Antibody Screen 06/12/19 06/12/19 19:28 19:28 WBC RBC Hgb Hct MCV MCH MCHC RDW Plt Count MPV Absolute Neuts (auto) Neutrophils % Lymphocytes % Monocytes % Eosinophils % Basophils % Nucleated RBC % PT with INR 13.60 H INR 1.15 H Sodium Potassium Chloride Carbon Dioxide Anion Gap BUN Creatinine Est GFR (CKD-EPI)AfAm Est GFR (CKD-EPI)NonAf Random Glucose Calcium Total Bilirubin AST ALT Alkaline Phosphatase Troponin I Total Protein Albumin Urine Color Urine Appearance Urine pH Ur Specific [place] Urine Protein Urine Glucose (UA) Urine Ketones Urine Blood Urine Nitrite Urine Bilirubin Urine Urobilinogen Ur Leukocyte Esterase Blood Type O POSITIVE Antibody Screen Negative Imaging - Results Chest X-ray: Image Reviewed (no i/e) EKG: Image Reviewed (sinus bradycardia 1 st degree avb) Problem List - Problems (1) Brain mass Code(s): G93.89 - OTHER SPECIFIED DISORDERS OF BRAIN (2) Intracranial hemorrhage Code(s): I62.9 - NONTRAUMATIC INTRACRANIAL HEMORRHAGE, UNSPECIFIED (3) HTN (hypertension) Code(s): I10 - ESSENTIAL (PRIMARY) HYPERTENSION (4) Headache Code(s): R51 - HEADACHE Qualifiers: Headache type: unspecified Headache chronicity pattern: acute headache Intractability: intractable Qualified Code(s): R51 - Headache (5) Lightheaded Code(s): R42 - DIZZINESS AND GIDDINESS (6) Lung mass Code(s): R91.8 - OTHER NONSPECIFIC ABNORMAL FINDING OF LUNG FIELD (7) Sinus bradycardia Code(s): R00.1 - BRADYCARDIA, UNSPECIFIED Assessment/Plan Metastatic melanoma lung/brain Hypotension asymptomatic bradycardia 1 avb Plan; telemetry 24 holter hold bp meds echo to r/o effusion onc/neuro f/u
--- NOTE | 2019-06-13 18:39 | ECHO ---
Name: ASHISH SCHULZ Exam:Adult Echocardiogram Study Date: 06/13/2019 03:25 PM Age: 79 yrs Reason For Study: pericardial effusion, metastic c Height: 70 in Weight: 160 lb BSA: 1.9 m2 MMode/2D Measurements & Calculations IVSd: 1.0 cm Ao root diam: 3.0 cm LVIDd: 4.6 cm LA dimension: 4.5 cm LVIDs: 3.1 cm LVPWd: 1.4 cm LVPWs: 1.5 cm EDV(Teich): 98.5 ml ESV(Teich): 38.6 ml LVOT diam: 2.0 cm LAV (MOD-bp): 70.2 ml TAPSE: 3.7 cm RV S Adalberto: 14.8 cm/sec Doppler Measurements & Calculations MV E max adalberto: 76.2 cm/sec Ao V2 max: 167.7 cm/sec MV A max adalberto: 84.4 cm/sec Ao max P.8 mmHg MV E/A: 0.90 AI P1/2t: 695.1 msec MORALES(V,D): 2.1 cm2 AI max adalberto: 370.5 cm/sec LV V1 max P.2 mmHg AI max P.0 mmHg LV V1 max: 113.5 cm/sec AI dec slope: 156.1 cm/sec2 TR max adalberto: 257.4 cm/sec PA V2 max: 141.2 cm/sec TR max P.6 mmHg PA max P.0 mmHg Med Peak E' Adalberto: 5.7 cm/sec Med E/e': 13.5 Lat Peak E' Adalberto: 9.8 cm/sec Lat E/e': 7.8 Left Ventricle The left ventricular size, thickness and function are normal. Right Ventricle The right ventricle is normal in size and function. Atria Normal left and right atrial size and function. Mitral Valve The mitral valve is normal. There is trace mitral regurgitation. Tricuspid Valve The tricuspid valve is not well visualized, but is grossly normal. There is mild tricuspid regurgitat ion. Aortic Valve The aortic valve is not well visualized. Mild aortic regurgitation. Pulmonic Valve The pulmonic valve is not well seen, but is grossly normal. Great Vessels The aortic root is normal size. Mild dialation of the ascending aorta. Pericardium/Pleura There is no pericardial effusion. Interpretation Summary The left ventricular size, thickness and function are normal The right ventricle is normal in size and function. Normal left and right atrial size and function. There is trace mitral regurgitation. The tricuspid valve is not well visualized, but is grossly normal. There is mild tricuspid regurgitation. The aortic valve is not well visualized. Mild aortic regurgitation. The pulmonic valve is not well seen, but is grossly normal. The aortic root is normal size. EF 60% PASP 23 mmHg MD Donnie Mustafa 06/13/2019 06:39 PM
[2019-06-14] MEDS: DEXAMETHASONE SOD PHOSPHATE 4 MG/1 ML VIAL IVPUSH SCH ×4 (04:05→21:45)
[2019-06-14 06:46] LABS: HEMATOCRIT 30.3 % (35.4-49); HEMOGLOBIN 10.4 GM/dL (11.7-16.9); MCH 32.3 pg (25.7-33.7); MCHC 34.3 g/dl (32.0-35.9); MEAN CELL VOLUME 94.2 fl (80-96); MEAN PLT VOLUME 8.8 fl (7.5-11.1); PLATELET COUNT 137 K/MM3 (134-434); RBC 3.22 M/mm3 (4.00-5.60); RDW 13.8 % (11.9-15.9); WHITE BLOOD COUNT 7.3 K/mm3 (4.0-10.0)
--- NOTE | 2019-06-14 06:50 | PN ---
Progress Note, Physician Chief Complaint: in bed NAD no c/o no weakness numbness or seizures on iv decadron no GARCIA no CP SOB FARIAS - Current Medication List Current Medications: Active Medications Acetaminophen (Tylenol -) 650 mg PO Q6H PRN PRN Reason: PAIN 1-5 Dexamethasone Sodium Phosphate (Decadron Injection -) 4 mg IVPUSH Q6H-IV [facility] Last Admin: 06/14/19 04:05 Dose: 4 mg Levetiracetam (Keppra Injection -) 500 mg IVPB BID [facility] Last Admin: 06/13/19 21:26 Dose: 500 mg Pantoprazole Sodium (Protonix -) 40 mg PO DAILY [facility] Last Admin: 06/13/19 11:12 Dose: 40 mg Tamsulosin HCl (Flomax -) 0.4 mg PO DAILY@0830 [facility] Last Admin: 06/13/19 08:33 Dose: 0.4 mg - Objective Vital Signs: Vital Signs Temperature 97.5 F L 06/14/19 01:58 Pulse Rate 41 L 06/14/19 06:00 Respiratory Rate 18 06/14/19 06:00 Blood Pressure 114/63 06/14/19 06:00 O2 Sat by Pulse Oximetry (%) 96 06/13/19 22:00 Constitutional: Yes: No Distress, Calm Eyes: Yes: Conjunctiva Clear HENT: Yes: Atraumatic Neck: Yes: Supple Cardiovascular: Yes: Regular Rate and Rhythm Respiratory: Yes: CTA Bilaterally Gastrointestinal: Yes: Soft. No: Tenderness Genitourinary: No: Hematuria Musculoskeletal: No: Joint Stiffness, Joint Swelling Extremities: No: Cold, Cool, Cyanosis Edema: No Integumentary: No: Rash, Venous Stasis Changes Neurological: Yes: Alert, Oriented ...Motor Strength: WNL Psychiatric: Yes: Alert, Oriented. No: Agitated, Suicidal Ideation Labs: INR, PTT INR 1.15 (0.83-1.09) H 06/12/19 19:28 - ....Imaging Other: Report Reviewed Assessment/Plan 79y M with PMH of metastatic melanoma to the lungs s/p partial L lower lobe pneumonectomy 2018, HTN, BPH, Vertigo admitted with "facial convulsions". Found to have L frontal mass on CT scan; to have [place] MRI for better mass delineation. Neurology and NS f/u; d/w dr Mccoy if 1 solitary mass consider excision in am; cardiology eval preop clearance d/w dr Lowery d/w dr Gibbons ONC; radiation eval d/w pt and staff - PT AGREED WITH ABOVE IF CLEARED BY CARDIOLOGY, NO ABSOLUTE CI FOR THE PROPOSED SURGERY
[2019-06-14 08:08] LABS: BILIRUBIN,TOTAL 0.5 mg/dL (0.2-1); BLOOD UREA NITROGEN 23.3 mg/dL (7-18); CREATININE 0.9 mg/dL (0.55-1.3); POTASSIUM 4.2 mmol/L (3.5-5.1); TOT PROT 7.8 g/dl (6.4-8.2)
[2019-06-14] MEDS: TAMSULOSIN HCL 0.4 MG CAP PO SCH (08:15)
--- NOTE | 2019-06-14 08:18 | CONS ---
DATE OF CONSULTATION: 06/13/2019 CHIEF COMPLAINT: New onset seizure with history of metastatic melanoma. HISTORY OF PRESENT ILLNESS: Patient is a 79-year-old right-handed male with history of metastatic melanoma, from the right face initially, diagnosed 5 years ago and status post resection. He subsequently developed metastatic disease to the lower lobe of the lung and underwent partial left lower lobectomy in 2018. He had complaints of a 2-day history of new onset right-sided facial twitching with severe vertigo. The 1st episode occurred when [place] [employer] [place] where he felt severe vertigo and had to caul puller. He might have lost consciousness at some point. He recovered after about 5 minutes, spontaneously. Yesterday just prior to admission he felt the sudden onset of vertigo and was smacking with his mouth on the right, with associated generalized headache. He denied loss of consciousness this time around, and has no nausea or vomiting. There is no other prior history of seizure activity. He has no weakness or numbness. He has no fever or chills or any recent infection. The patient stated that he has been under the care of Dr. Gibbons and had an unremarkable PET scan about 6 months ago. Presently, he denies any headache and no significant vertigo. He is in the emergency room. PAST MEDICAL HISTORY: Significant for metastatic melanoma, hypertension, BPH. MEDICATIONS: Included Flomax, Cozaar. ALLERGIES: There is no known drug allergy. FAMILY HISTORY: Noncontributory. SOCIAL HISTORY: He does not smoke and only drinks alcohol socially. He is retired. He lives at home. REVIEW OF SYSTEMS: Otherwise negative for other major constitutional, head and neck, cardiovascular, pulmonary, gastrointestinal, genitourinary, endocrinological, neurological or psychological problems except for the above. He denies any fever or chills or recent infection. PHYSICAL EXAMINATION: Vital Signs: Temperature is 97.3. Blood pressure is 85/55, with a pulse rate of 46 (the patient stated that these are his baseline blood pressure and pulse rate). O2 saturation is 98% on room air. HEENT: Examination shows him to have a healed right-sided facial scar. Neck: Supple. There is no carotid bruit. Heart: Coronary examination demonstrated bradycardia, but there is no murmur. Respiratory: Lungs show slightly decreased breath sounds on the left. Abdomen: Benign. Extremities: Examination showed no signs of DVT. Neurologic: The patient is awake, alert and oriented x4. His speech is normal. Cranial nerve examination is intact II through XII. Motor examination shows 5/5 strength without a drift. Sensory examination is intact to light touch. Deep tendon reflexes are hyporeflexic throughout. There is no pathological long tract sign. Gait was not tested for safety reasons. Cerebellar examination demonstrated intact [id number] examination. DIAGNOSTIC STUDIES: Laboratory examination shows a white blood cell count of 4.7, hemoglobin 10.3 and platelet count 147,000. INR is 1.15. Serum sodium is 137, potassium 4.4, BUN 18, creatinine 1.3. Estimated GFR is 53. LFTs are normal. Troponin I is less than 0.02. Albumin is 3.4. Urinalysis is negative.\ CT scan of the head demonstrated a solitary left frontal hemorrhagic lesion, approximately 2.5 x 2 x 2 cm. There is surrounding edema. There is mild mass effect with a midline shift. Chest x-ray demonstrated cardiomegaly. There is no acute pathology. IMPRESSION: 1. Solitary left frontal hemorrhagic 2.5 x 2 x 2-cm lesion with surrounding edema, rule out solitary melanoma metastasis. 2. Hypertension. 3. Benign prostatic hypertrophy. RECOMMENDATIONS: Patient presented with 2 episodes of severe vertigo and likely focal seizure activity. He might have lost consciousness, especially after the 1st episode. Presently he is asymptomatic and back at baseline. Neurologic examination is nonfocal, and he does not have a drift. The emergency department was advised to start him on Decadron and he received a 10-mg bolus. He will be continued on 4 mg IV q.6 hours. He also received Keppra 500 mg and will be maintained on 500 mg twice a day for now. Protonix was added for gastritis prophylaxis. Baseline brain MRI with and without gadolinium is recommended to assess an enhancing lesion, even though with the current focal hemorrhage, it may be difficult to visualize any underlying neoplasm. However, given the history of melanoma and the high propensity of melanoma metastasis to be hemorrhagic, this should be assumed to be the case until proven otherwise. The patient's treating oncologist is Dr. Gibbons, and he should be consulted for followup care. Further recommendations from the neurosurgical standpoint will be made upon the availability of the brain MRI with and without gadolinium. Preliminarily, the patient has the option of considering Gamma Knife stereotactic radiosurgery versus microsurgical resection. Both primary treatement modalities would likely need to be followed by RT. The pros and cons will be discussed further with the patient after the MRI examination. If the patient's blood pressure remains low and he continued to be bradycardic, perhaps a baseline cardiac evaluation should be contemplated. VIRI MCLAIN M.D. [id number] MTDD
--- NOTE | 2019-06-14 08:30 | PN ---
Progress Note (short form) - Note Progress Note: Neurology History of Present Illness - General Chief Complaint: Lightheaded History Source: Patient Exam Limitations: No Limitations PCP: Dr. 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 Pt stated that on day prior to admission when he was driving he had sudden onset of vertigo with R sided facial pains which felt like pins and needles and felt the R side of his face twitching. He pulled over and stated the episode lasted for 5 minutes. Does not know if he lost consciousness but the episode resolved and he went home. On day of admission, pt stated he was walking outside, had sudden onset of vertigo and stated he was making a repetitive noise with his mouth and had a headache. Episode lasted a few minutes and resolved. Pt stated he did not lose consciousness but grabbed on to a side rail to prevent him from falling. He has not had symptoms like this before. He denied incontinence during these episodes. He denied tinnitus, headache, changes in vision, numbness/tingling, weakness, ataxia, head injuries, chest pain, sob, abdominal pain, n/v/d, recent illnesses, recent travel, recent surgeries. Denied use of drugs, alcohol. I was contacted by the emergency department evening of admission and advised Ct of head performed and showed a solitary 2.7x1.7x1.7 cm left frontal lobe hemorrhage is seen with mild surrounding edemaa-possible underlying neoplastic disease. Chronic sphenoid sinusitis. [facility] also reviewed the images and felt lesion was suspicious for metastatic melanoma. I advised starting patient on Keppra for seizure prophylaxis, neurosurgery note reviewed, Decadron recommended. Next steps would be to obtain MRI with and without contrast to further delineate the lesion and for oncology management if lesion is confirmed to be metastatic melanoma. Imaging completed but awaiting official report, discussed case with neurosurgeon, Dr. Karan Mccoy, who is at bedside with patient. Patient iinterested and radiation therapy after surgery Dr. Mccoy to discuss with Dr. Gibbons. I discussed with the patient as well remains on dexamethasone along with Keppra. Active Medications Acetaminophen (Tylenol -) 650 mg PO Q6H PRN PRN Reason: PAIN 1-5 Dexamethasone Sodium Phosphate (Decadron Injection -) 4 mg IVPUSH Q6H-IV [facility] Last Admin: 06/14/19 04:05 Dose: 4 mg Levetiracetam (Keppra Injection -) 500 mg IVPB BID [facility] Last Admin: 06/13/19 21:26 Dose: 500 mg Pantoprazole Sodium (Protonix -) 40 mg PO DAILY [facility] Last Admin: 06/13/19 11:12 Dose: 40 mg Tamsulosin HCl (Flomax -) 0.4 mg PO DAILY@0830 [facility] Last Admin: 06/14/19 08:15 Dose: 0.4 mg *Physical Exam - Vital Signs Vital Signs Period Temp Pulse Resp BP Sys/Giordano Pulse Ox Last 24 Hr 97.3 F-98.3 F 41-52 16-18 99-131/52-69 96-98 - Physical Exam General Appearance: Yes: Nourished, Appropriately Dressed, Thin. No: Apparent Distress HEENT: positive: EOMI, BARBRA, Normal ENT Inspection, TMs Normal, Pharynx Normal. negative: Scleral Icterus (R), Scleral Icterus (L) Neck: positive: Trachea midline, Supple. negative: Carotid bruit, Lymphadenopathy (R), Lymphadenopathy (L) Respiratory/Chest: positive: Lungs Clear, Normal Breath Sounds. negative: Crackles, Rales, Rhonchi, Stridor, Wheezing Cardiovascular: positive: Regular Rhythm, Regular Rate, S1, S2. negative: Edema , JVD, Murmur Vascular Pulses: Dorsalis-Pedis (R): 2+, Doralis-Pedis (L): 2+ Gastrointestinal/Abdominal: positive: Normal Bowel Sounds, Soft. negative: Tender Musculoskeletal: positive: Normal Inspection. negative: CVA Tenderness Extremity: positive: Normal Capillary Refill. negative: Pedal Edema, Swelling, Calf Tenderness Integumentary: positive: Normal Color, Dry, Warm Neurologic: positive: steel chipper II-XII NML intact, Fully Oriented, Alert, Normal Mood/ Affect, Normal Response, Motor Strength 5/5, Finger to Nose. negative: Facial Droop, Numbness, Sensory Deficit, Confused, Disoriented CBCD WBC 7.3 K/mm3 (4.0-10.0) 06/14/19 05:25 RBC 3.22 M/mm3 (4.00-5.60) L 06/14/19 05:25 Hgb 10.4 GM/dL (11.7-16.9) L 06/14/19 05:25 Hct 30.3 % (35.4-49) L 06/14/19 05:25 MCV 94.2 fl (80-96) 06/14/19 05:25 MCHC 34.3 g/dl (32.0-35.9) 06/14/19 05:25 RDW 13.8 % (11.9-15.9) 06/14/19 05:25 Plt Count 137 K/MM3 (134-434) 06/14/19 05:25 MPV 8.8 fl (7.5-11.1) 06/14/19 05:25 CMP Sodium 140 mmol/L (136-145) 06/14/19 05:25 Potassium 4.2 mmol/L (3.5-5.1) 06/14/19 05:25 Chloride 109 mmol/L (98-107) H 06/14/19 05:25 Carbon Dioxide 23 mmol/L (21-32) 06/14/19 05:25 Anion Gap 8 MMOL/L (8-16) 06/14/19 05:25 BUN 23.3 mg/dL (7-18) H 06/14/19 05:25 Creatinine 0.9 mg/dL (0.55-1.3) 06/14/19 05:25 Random Glucose 109 mg/dL (74-106) H 06/14/19 05:25 Calcium 9.0 mg/dL (8.5-10.1) 06/14/19 05:25 Total Bilirubin 0.5 mg/dL (0.2-1) 06/14/19 05:25 AST 14 U/L (15-37) L 06/14/19 05:25 ALT 22 U/L (13-61) 06/14/19 05:25 Alkaline Phosphatase 73 U/L (45-117) 06/14/19 05:25 Total Protein 7.8 g/dl (6.4-8.2) 06/14/19 05:25 Albumin 3.0 g/dl (3.4-5.0) L 06/14/19 05:25 CARDIAC ENZYMES Troponin I < 0.02 ng/ml (0.00-0.05) 06/12/19 17:12 Plan: 79y M, known to me from office visit with PMH of 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 Pt stated that on day prior to admission when he was driving he had sudden onset of vertigo with R sided facial pains which felt like pins and needles and felt the R side of his face twitching. He pulled over and stated the episode lasted for 5 minutes. Does not know if he lost consciousness but the episode resolved and he went home. On day of admission, pt stated he was walking outside, had sudden onset of vertigo and stated he was making a repetitive noise with his mouth and had a headache. Episode lasted a few minutes and resolved. Pt stated he did not lose consciousness but grabbed on to a side rail to prevent him from falling. He has not had symptoms like this before. He denied incontinence during these episodes. He denied tinnitus, headache, changes in vision, numbness/tingling, weakness, ataxia, head injuries, chest pain, sob, abdominal pain, n/v/d, recent illnesses, recent travel, recent surgeries. Denied use of drugs, alcohol. I was contacted by the emergency department evening of admission and advised Ct of head performed and showed a solitary 2.7x1.7x1.7 cm left frontal lobe hemorrhage is seen with mild surrounding edemaa-possible underlying neoplastic disease. Chronic sphenoid sinusitis. discussed with Dr. Karan clancyho also reviewed the images and felt lesion was suspicious for metastatic melanoma. Imaging completed but awaiting official report, discussed case with neurosurgeon, Dr. Karan Mccoy, who was at bedside with patient. Likely metastatic melanoma lesion per NSGY. Patient iinterested and radiation therapy after surgery Dr. Mccoy to discuss with Dr. Gibbons. I discussed with the patient as well remains on dexamethasone along with Keppra. Monitor blood pressure, maintain normotensive range. Fall precautions.
--- NOTE | 2019-06-14 08:32 | PN ---
Teaching Attending Note Name of Resident: Tj Degroot ATTENDING PHYSICIAN STATEMENT I saw and evaluated the patient. I reviewed the resident's note and discussed the case with the resident. I agree with the resident's findings and plan as documented. 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 During serial CT monitoring found to have a left lung mass. Undeerwent resection and found to have malignant melanoma. 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 Serial CT monitoring with some enlarging right hilar /mediastinal disease. Bronchoscopy in May- unrevealing. Presents now with facial twitching, numbness and headache and found on CT to have a 2.7 x 1.7 x1.7 cm hemorrhagic lesion , likely neoplastic - MRI pending. Last Vital Signs Temp Pulse Resp BP Pulse Ox 97.5 F L 41 L 18 114/63 96 06/14/19 01:58 06/14/19 06:00 06/14/19 06:00 06/14/19 06:00 06/13/19 22:00 HEENT: ELIZABETH, EOM Intact Oropharynx: No thrush, No mucositis Neck: Supple Nodes: Without adenopathy Cor: RSR, No murmurs, No gallops Lungs: Clear to P&A Abd: Soft, Normal bowel sounds, No organomegaly Ext:No significant edema Skin: No rashes, Integument intact Impression: Likely metastatic melanoma- await MRI- single or multiple mets RT consult Neurosurgery following Dysproteinemia. Suggest: CT Chest , abdomen, and pelvis Await MRI results. Check proteins OBJECTIVE: ASSESSMENT AND PLAN:
--- NOTE | 2019-06-14 09:05 | PN ---
Progress Note (short form) - Note Progress Note: NEUROSURGERY On [address] Jerez at bedside as well No headache, N/V, Sz. PE: AF, BP borderline low, PA 40-60's (though asymptomatic per pt and is reported to be chronic) HEENT- NC/AT; Neck- supple; Cor- RR; Lungs- CTA B; Abd- benign, + BS; Ext- no sign of DVT CN- intact II-XII; Motor- 5/5 without drift; Sensation- intact LT; DTR- 1+/ hyporefelxic CT Head- L frontal 2.5 x 2 x 2 cm ICH with surrounding edema; mild mass effect Prior head CT (09-28-2018)- negative Brain MRI with/without (prelim)- L frontal 2 x2 x 2.4 cm hemorrhagic lesion with patchy enhancement; moderate vasogenic edema; no other suspected lesion; R ethmoid sinusitis Probable solitary hemorrhagic L frontal metastatic melanoma with edema Decadron for edema Keppra for sz prophylaxis Brain MRI with/without jyoti Med onc input noted As it appears to be solitary met, microsurgery followed by RT vs SRS followed by RT discussed with pt Pros and cons, risks and benefits discussed for treatment approaches (including observation with f/u MRI only) Pr prefers surgical tx Surgery risks: bleeding, infection, stroke, facial weakness, sz, coma, DVT/PE/WI , D/w Dr Robles Med Onc f/u and input As surgery is decided, placed stereotactic MRI scalp markers Cont decadron/protonix/keppra
[2019-06-14] MEDS ORDERED: BENZOIN/ALOE VERA/STORAX/TOLU 58 ML BOTTLE ONE (09:18)
[2019-06-14] MEDS: levETIRAcetam 500 MG/5 ML INJECTION VIAL IVPB SCH ×2 (09:21→21:45)
[2019-06-14] MEDS: PANTOPRAZOLE 40 MG TABLET PO SCH (09:21)
--- NOTE | 2019-06-14 09:31 | CONS ---
DATE OF CONSULTATION: 06/14/2019 A patient of Abena Robles M.D. HISTORY OF PRESENT ILLNESS: This is a 79-year-old male, well-known to me. He initially was evaluated for dysproteinemia. He had a positive bone marrow and was being monitored serially. No intervention for his dysproteinemia. During the course of serial evaluation, he was found to have a left lung mass. This was resected and was found to be a melanoma. Subsequent serial followup found right hilar and mediastinal enlargement. CAT scan initially (after 3-month followup) was nonrevealing. Initially some increase in size and patient underwent bronchoscopy recently in May, results of which were unremarkable. The patient presents now with right-sided facial twitching, numbness, "convulsions" of the right side during driving expedition. This happened on several occasions. He enters and is found to have on CT scan a 2.7 x 1.7 x 1.7 left frontal solitary mass. He was given Decadron and Keppra, and MRI is currently pending. PAST MEDICAL HISTORY: Includes melanoma in situ, left lung resection for melanoma as well as dysproteinemia. SOCIAL HISTORY: Past history of smoking years ago. No alcohol. No drugs. REVIEW OF SYSTEMS: The patient had headaches during this. No diplopia, no epistaxis, no dysphagia, no shortness of breath, no chest pain or palpitations. No nausea, vomiting or diarrhea. No dysuria, hematuria or pyuria. CURRENT PHYSICAL EXAMINATION: Vital Signs: BP 114/63. Pulse in the 40s. Respiratory rate 18. Afebrile. HEENT: Eyes: ELIZABETH, EOM intact. Oropharynx unremarkable. Lymph Nodes: No cervical or supraclavicular nodes. Lungs: Relatively clear. Cardiac: Bradycardia. Abdomen: Soft. No organomegaly or masses. Extremities: No significant edema. Genitalia: No testicular masses. LABORATORY DATA: WBC 7.3 and 4.7, hematocrit 30, platelets 137,000, with 71 polys. INR 1.15. Sodium 140, K 4.2, chloride 109, CO2 of 23, creatinine 0.9. AST 14, ALT 22, alkaline phosphatase 73, albumin 3, protein 7.8. IMAGING: Brain MRI pending. Head CT as aforementioned, a left solitary frontal mass, 2.7 x 1.7 x 1.7. Previously, in August 2018, no significant lesions, chronic sphenoid sinusitis. Chest x-ray: Sclerotic enlarged heart, degenerative changes. No acute chest pathology. IMPRESSION: History of dysproteinemia, history of melanoma status post left lung resection, hemorrhagic lesion in the central nervous system with likely underlying neoplasm. PLAN: Await MRI for further recommendations. LEANNE MARTINO M.D. [id number]
[2019-06-14 11:24] LABS: INR 1.11 (0.83-1.09); PROTHROMBIN TIME (PATIENT) 13.1 SEC (9.7-13.0)
[2019-06-14 11:27] LABS: ACTIVATED PTT 32.2 SECONDS (25.2-36.5)
--- NOTE | 2019-06-14 22:06 | PN ---
Progress Note (short form) - Note Progress Note: Radiation Oncology Pt seen/examined, chart/films reviewed, dictated consult to follow. A 79 yo male with hx of metastatic melanoma s/p lung metastatectomy presenting with seizure and a solitary hemorrhagic brain mass with edema and mass effect. Seen by neurosurgery and deemed a candidate for resection of likely metastatic lesion. Discussed options of surgical resection followed by postop SRS/RT vs SRS alone. Given need for pathologic confirmation and the relatively accessible location of the lesion, would be reasonable to consider upfront surgical debulking followed by RT especially if this is metastatic melanoma which is relatively radioresistant. Patient understands and favors surgery. Will follow pathology and arrange RT postop.
--- NOTE | 2019-06-14 23:44 | PN ---
Progress Note, Physician Chief Complaint: Pt A&Ox3; no chest pain or dyspnea. States he is ready for surgery tomorrow. History of Present Illness: 79-year-old white man with past medical history of hypertension, lung cancer status post right lower lobe lobectomy in 2018 and BPH experienced 2 episodes of sudden dizziness associated with headache and involuntary facial twitching while driving. these episodes lasted about 5 minutes each - Current Medication List Current Medications: Active Medications Acetaminophen (Tylenol -) 650 mg PO Q6H PRN PRN Reason: PAIN 1-5 Dexamethasone Sodium Phosphate (Decadron Injection -) 4 mg IVPUSH Q6H-IV [facility] Last Admin: 06/14/19 21:45 Dose: 4 mg Potassium Chloride/Dextrose/Sod Cl (D5-1/2ns+20 Meq Kcl -) 20 meq in 1,000 mls @ 75 mls/hr IV ASDIR OMERO Levetiracetam (Keppra Injection -) 500 mg IVPB BID [facility] Last Admin: 06/14/19 21:45 Dose: 500 mg Pantoprazole Sodium (Protonix -) 40 mg PO DAILY [facility] Last Admin: 06/14/19 09:21 Dose: 40 mg Tamsulosin HCl (Flomax -) 0.4 mg PO DAILY@0830 [facility] Last Admin: 06/14/19 08:15 Dose: 0.4 mg - Objective Vital Signs: Vital Signs Temperature 97.9 F 06/14/19 20:45 Pulse Rate 50 L 06/14/19 20:45 Respiratory Rate 15 06/14/19 20:45 Blood Pressure 130/79 06/14/19 20:45 O2 Sat by Pulse Oximetry (%) 98 06/14/19 09:00 Constitutional: Yes: Calm Eyes: Yes: WNL HENT: Yes: WNL Neck: Yes: WNL Cardiovascular: Yes: S1 (split), S2 Respiratory: Yes: WNL Gastrointestinal: Yes: Soft ...Rectal Exam: Yes: Deferred Genitourinary: No: Anuria Breast(s): Yes: WNL Musculoskeletal: Yes: Muscle Weakness Extremities: Yes: WNL Edema: No Peripheral Pulses WNL: Yes Integumentary: Yes: WNL Neurological: Yes: Alert, Oriented, Weakness Psychiatric: Yes: WNL Labs: CBC, BMP 06/14/19 05:25 02/13/20 05:25 INR, PTT INR 1.11 (0.83-1.09) H 06/14/19 10:26 Abnormal Lab Results 06/14/19 06/14/19 06/14/19 05:25 05:25 10:26 RBC 3.22 L Hgb 10.4 L Hct 30.3 L PT with INR INR Chloride 109 H BUN 23.3 H Random Glucose 109 H AST 14 L Albumin 3.0 L Crossmatch See Detail 06/14/19 10:26 RBC Hgb Hct PT with INR 13.10 H INR 1.11 H Chloride BUN Random Glucose AST Albumin Crossmatch - ....Imaging Cat Scan: Image Reviewed (head: tumor) Ultrasound: Report Reviewed (ECHO: normal LVEF; mild TR and AR.) MRI: Report Reviewed EKG: Image Reviewed (sinus bradycardia; 1st degree AV block) Problem List - Problems (1) Seizures Code(s): R56.9 - UNSPECIFIED CONVULSIONS (2) BPH (benign prostatic hyperplasia) Code(s): N40.0 - BENIGN PROSTATIC HYPERPLASIA WITHOUT LOWER URINRY TRACT SYMP (3) Brain mass Assessment/Plan: For surgery in am. From a cardiac perspective, there are no absolute contraindications for Mr. Lynn to undergo resection of brain mass. 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 BP controlled; on no antrihypertensives presently. Code(s): I10 - ESSENTIAL (PRIMARY) HYPERTENSION (6) Sinus bradycardia Code(s): R00.1 - BRADYCARDIA, UNSPECIFIED
[2019-06-15] MEDS ORDERED: D5-1/2NS+20 MEQ KCL - 20 MEQ/1,000 ML INFUS.BAG IV SCH (00:01)
[2019-06-15] MEDS: DEXAMETHASONE SOD PHOSPHATE 4 MG/1 ML VIAL IVPUSH SCH ×4 (04:09→20:51)
--- NOTE | 2019-06-15 08:34 | PN ---
Progress Note (short form) - Note Progress Note: Neurology History of Present Illness - General Chief Complaint: Lightheaded History Source: Patient Exam Limitations: No Limitations PCP: Dr. 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 Pt stated that on day prior to admission when he was driving he had sudden onset of vertigo with R sided facial pains which felt like pins and needles and felt the R side of his face twitching. He pulled over and stated the episode lasted for 5 minutes. Does not know if he lost consciousness but the episode resolved and he went home. On day of admission, pt stated he was walking outside, had sudden onset of vertigo and stated he was making a repetitive noise with his mouth and had a headache. Episode lasted a few minutes and resolved. Pt stated he did not lose consciousness but grabbed on to a side rail to prevent him from falling. He has not had symptoms like this before. He denied incontinence during these episodes. He denied tinnitus, headache, changes in vision, numbness/tingling, weakness, ataxia, head injuries, chest pain, sob, abdominal pain, n/v/d, recent illnesses, recent travel, recent surgeries. Denied use of drugs, alcohol. I was contacted by the emergency department evening of admission and advised Ct of head performed and showed a solitary 2.7x1.7x1.7 cm left frontal lobe hemorrhage is seen with mild surrounding edema-possible underlying neoplastic disease. Chronic sphenoid sinusitis. discussed with Dr. Karan Mccoy who also reviewed the images and felt lesion was suspicious for metastatic melanoma. I advised starting patient on Keppra for seizure prophylaxis, neurosurgery note reviewed, Decadron recommended. Imaging completed but still awaiting official report, discussed case with neurosurgeon, Dr. Karan Mccoy. Patient iinterested and radiation therapy after surgery. Compelted sterotactic MRI this morning. Possibly for radiation today, per nurse, discussed with this AM. Onc note reviewed. Active Medications Acetaminophen (Tylenol -) 650 mg PO Q6H PRN PRN Reason: PAIN 1-5 Dexamethasone Sodium Phosphate (Decadron Injection -) 4 mg IVPUSH Q6H-IV [facility] Last Admin: 06/15/19 04:09 Dose: 4 mg Potassium Chloride/Dextrose/Sod Cl (D5-1/2ns+20 Meq Kcl -) 20 meq in 1,000 mls @ 75 mls/hr IV ASDIR [facility] Last Admin: 06/15/19 00:36 Dose: 75 mls/hr Levetiracetam (Keppra Injection -) 500 mg IVPB BID [facility] Last Admin: 06/14/19 21:45 Dose: 500 mg Pantoprazole Sodium (Protonix -) 40 mg PO DAILY [facility] Last Admin: 06/14/19 09:21 Dose: 40 mg Tamsulosin HCl (Flomax -) 0.4 mg PO DAILY@0830 [facility] Last Admin: 06/14/19 08:15 Dose: 0.4 mg *Physical Exam - Vital Signs Vital Signs Period Temp Pulse Resp BP Sys/Giordano Pulse Ox Last 24 Hr 97.5 F-97.9 F 39-50 15-20 116-130/59-79 98-100 - Physical Exam General Appearance: Yes: Nourished, Appropriately Dressed, Thin. No: Apparent Distress HEENT: positive: EOMI, BARBRA, Normal ENT Inspection, TMs Normal, Pharynx Normal. negative: Scleral Icterus (R), Scleral Icterus (L) Neck: positive: Trachea midline, Supple. negative: Carotid bruit, Lymphadenopathy (R), Lymphadenopathy (L) Respiratory/Chest: positive: Lungs Clear, Normal Breath Sounds. negative: Crackles, Rales, Rhonchi, Stridor, Wheezing Cardiovascular: positive: Regular Rhythm, Regular Rate, S1, S2. negative: Edema , JVD, Murmur Vascular Pulses: Dorsalis-Pedis (R): 2+, Doralis-Pedis (L): 2+ Gastrointestinal/Abdominal: positive: Normal Bowel Sounds, Soft. negative: Tender Musculoskeletal: positive: Normal Inspection. negative: CVA Tenderness Extremity: positive: Normal Capillary Refill. negative: Pedal Edema, Swelling, Calf Tenderness Integumentary: positive: Normal Color, Dry, Warm Neurologic: positive: mill manager II-XII NML intact, Fully Oriented, Alert, Normal Mood/ Affect, Normal Response, Motor Strength 5/5, Finger to Nose. negative: Facial Droop, Numbness, Sensory Deficit, Confused, Disoriented CBCD WBC 7.3 K/mm3 (4.0-10.0) 06/14/19 05:25 RBC 3.22 M/mm3 (4.00-5.60) L 06/14/19 05:25 Hgb 10.4 GM/dL (11.7-16.9) L 06/14/19 05:25 Hct 30.3 % (35.4-49) L 06/14/19 05:25 MCV 94.2 fl (80-96) 06/14/19 05:25 MCHC 34.3 g/dl (32.0-35.9) 06/14/19 05:25 RDW 13.8 % (11.9-15.9) 06/14/19 05:25 Plt Count 137 K/MM3 (134-434) 06/14/19 05:25 MPV 8.8 fl (7.5-11.1) 06/14/19 05:25 CMP Sodium 140 mmol/L (136-145) 06/14/19 05:25 Potassium 4.2 mmol/L (3.5-5.1) 06/14/19 05:25 Chloride 109 mmol/L (98-107) H 06/14/19 05:25 Carbon Dioxide 23 mmol/L (21-32) 06/14/19 05:25 Anion Gap 8 MMOL/L (8-16) 06/14/19 05:25 BUN 23.3 mg/dL (7-18) H 06/14/19 05:25 Creatinine 0.9 mg/dL (0.55-1.3) 06/14/19 05:25 Random Glucose 109 mg/dL (74-106) H 06/14/19 05:25 Calcium 9.0 mg/dL (8.5-10.1) 06/14/19 05:25 Total Bilirubin 0.5 mg/dL (0.2-1) 06/14/19 05:25 AST 14 U/L (15-37) L 06/14/19 05:25 ALT 22 U/L (13-61) 06/14/19 05:25 Alkaline Phosphatase 73 U/L (45-117) 06/14/19 05:25 Total Protein 7.8 g/dl (6.4-8.2) 06/14/19 05:25 Albumin 3.0 g/dl (3.4-5.0) L 06/14/19 05:25 CARDIAC ENZYMES Troponin I < 0.02 ng/ml (0.00-0.05) 06/12/19 17:12 Plan: 79y M, known to me from office visit with PMH of 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 Pt stated that on day prior to admission when he was driving he had sudden onset of vertigo with R sided facial pains which felt like pins and needles and felt the R side of his face twitching. He pulled over and stated the episode lasted for 5 minutes. Does not know if he lost consciousness but the episode resolved and he went home. On day of admission, pt stated he was walking outside, had sudden onset of vertigo and stated he was making a repetitive noise with his mouth and had a headache. Episode lasted a few minutes and resolved. Pt stated he did not lose consciousness but grabbed on to a side rail to prevent him from falling. He has not had symptoms like this before. He denied incontinence during these episodes. He denied tinnitus, headache, changes in vision, numbness/tingling, weakness, ataxia, head injuries, chest pain, sob, abdominal pain, n/v/d, recent illnesses, recent travel, recent surgeries. Denied use of drugs, alcohol. I was contacted by the emergency department evening of admission and advised Ct of head performed and showed a solitary 2.7x1.7x1.7 cm left frontal lobe hemorrhage is seen with mild surrounding edemaa-possible underlying neoplastic disease. Chronic sphenoid sinusitis. discussed with Dr. Karan Mccoy [facility] also reviewed the images and felt lesion was suspicious for metastatic melanoma. IImaging completed but still awaiting official report, discussed case with neurosurgeon, Dr. Karan Mccoy. Patient iinterested and radiation therapy after surgery. Compelted sterotactic MRI this morning. Possibly for radiation today, per nurse, discussed with this AM. Onc note reviewed. Remains on dexamethasone along with Keppra. Monitor blood pressure, maintain normotensive range. Fall precautions.
--- NOTE | 2019-06-15 08:51 | PN ---
Progress Note, Physician Chief Complaint: in bed NAD no c/o feels well awaiting for surgery NPO - Current Medication List Current Medications: Active Medications Acetaminophen (Tylenol -) 650 mg PO Q6H PRN PRN Reason: PAIN 1-5 Dexamethasone Sodium Phosphate (Decadron Injection -) 4 mg IVPUSH Q6H-IV [facility] Last Admin: 06/15/19 04:09 Dose: 4 mg Potassium Chloride/Dextrose/Sod Cl (D5-1/2ns+20 Meq Kcl -) 20 meq in 1,000 mls @ 75 mls/hr IV ASDIR [facility] Last Admin: 06/15/19 00:36 Dose: 75 mls/hr Levetiracetam (Keppra Injection -) 500 mg IVPB BID [facility] Last Admin: 06/14/19 21:45 Dose: 500 mg Pantoprazole Sodium (Protonix -) 40 mg PO DAILY [facility] Last Admin: 06/14/19 09:21 Dose: 40 mg Tamsulosin HCl (Flomax -) 0.4 mg PO DAILY@0830 [facility] Last Admin: 06/14/19 08:15 Dose: 0.4 mg - Objective Vital Signs: Vital Signs Temperature 97.6 F 06/15/19 00:31 Pulse Rate 39 L 06/15/19 00:31 Respiratory Rate 20 06/15/19 00:31 Blood Pressure 122/59 L 06/15/19 00:31 O2 Sat by Pulse Oximetry (%) 100 06/14/19 21:00 Constitutional: Yes: No Distress, Calm Eyes: Yes: Conjunctiva Clear HENT: Yes: Atraumatic Neck: Yes: Supple Cardiovascular: Yes: Regular Rate and Rhythm Respiratory: Yes: CTA Bilaterally Gastrointestinal: Yes: Soft. No: Tenderness Genitourinary: No: Hematuria Musculoskeletal: No: Joint Stiffness, Joint Swelling Extremities: No: Cold, Cool, Cyanosis Edema: No Integumentary: No: Rash, Venous Stasis Changes Neurological: Yes: WNL, Alert, Oriented ...Motor Strength: WNL Psychiatric: Yes: WNL, Alert, Oriented. 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 Found to have L frontal mass on CT scan; brain MRI solitary mass Neurology and NS f/u; d/w dr Mccoy - mass excision today; cardiology eval preop clearance d/w dr Lowery - cleared for surgery d/w dr Gibbons ONC; radiation f/u d/w pt and staff - PT AGREED WITH ABOVE NO ABSOLUTE CI FOR THE PROPOSED SURGERY
[2019-06-15] MEDS: TAMSULOSIN HCL 0.4 MG CAP PO SCH ×2 (09:41→09:44)
[2019-06-15] MEDS: levETIRAcetam 500 MG/5 ML INJECTION VIAL IVPB SCH ×2 (09:41→22:05)
[2019-06-15] MEDS: PANTOPRAZOLE 40 MG TABLET PO SCH ×2 (09:41→09:44)
--- NOTE | 2019-06-15 11:24 | PN ---
Progress Note, Physician History of Present Illness: 79M with h/o metastatic melanoma (mets to lungs; s/p LLL segmentectomy), HTN, BPH who originally presented due to vertigo and notable facial twitching. Pt was driving at the time of presentation with his symptoms which occurred suddenly. Pt endorsed numbness and tingling on the R side of his face alongside the twitching. Pt reports the episode lasted 5 minutes after pulling over and then went home immediately. Pt had a repeat episode the next day while walking outside with notable lip smacking and after his episode he developed a unilateral headache suddenly. At this time he went to the ER for further evaluation. Upon work-up in the ED pt was noted to have a 2.7x1.7x1.7cm L Frontal solidary mass with hemorrhage and surrounding edema. Pt was seen by neurosurgery and neurology and the patient was initiated on Keppra and decadron. We were asked to evaluate the patient medically due to underlying neoplastic disease suspected to be his previous melanoma. 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, mild PHT 2011 - Current Medication List Current Medications: Active Medications Acetaminophen (Tylenol -) 650 mg PO Q6H PRN PRN Reason: PAIN 1-5 Dexamethasone Sodium Phosphate (Decadron Injection -) 4 mg IVPUSH Q6H-IV [facility] Last Admin: 06/15/19 09:41 Dose: 4 mg Potassium Chloride/Dextrose/Sod Cl (D5-1/2ns+20 Meq Kcl -) 20 meq in 1,000 mls @ 75 mls/hr IV ASDIR [facility] Last Admin: 06/15/19 00:36 Dose: 75 mls/hr Levetiracetam (Keppra Injection -) 500 mg IVPB BID [facility] Last Admin: 06/15/19 09:41 Dose: 500 mg Pantoprazole Sodium (Protonix -) 40 mg PO DAILY [facility] Last Admin: 06/15/19 09:44 Dose: Not Given Tamsulosin HCl (Flomax -) 0.4 mg PO DAILY@0830 [facility] Last Admin: 06/15/19 09:44 Dose: Not Given - Objective Vital Signs: Vital Signs Temperature 97.6 F 06/15/19 00:31 Pulse Rate 39 L 06/15/19 00:31 Respiratory Rate 20 06/15/19 00:31 Blood Pressure 122/59 L 06/15/19 00:31 O2 Sat by Pulse Oximetry (%) 100 06/14/19 21:00 Eyes: Yes: WNL, Conjunctiva Clear, EOM Intact HENT: Yes: WNL, Atraumatic, Normocephalic Neck: Yes: WNL, Supple, Trachea Midline Cardiovascular: Yes: WNL, Regular Rate and Rhythm Respiratory: Yes: WNL, Regular, CTA Bilaterally Gastrointestinal: Yes: WNL, Normal Bowel Sounds Genitourinary: Yes: WNL Musculoskeletal: Yes: WNL Extremities: Yes: WNL Edema: No Integumentary: Yes: WNL Neurological: Yes: Alert, Oriented ...Motor Strength: WNL Psychiatric: Yes: WNL Labs: CBC, BMP 06/14/19 05:25 06/14/19 05:25 INR, PTT INR 1.11 (0.83-1.09) H 06/14/19 10:26 Problem List - Problems (1) Brain mass Code(s): G93.89 - OTHER SPECIFIED DISORDERS OF BRAIN (2) Intracranial hemorrhage Code(s): I62.9 - NONTRAUMATIC INTRACRANIAL HEMORRHAGE, UNSPECIFIED (3) HTN (hypertension) Code(s): I10 - ESSENTIAL (PRIMARY) HYPERTENSION (4) Headache Code(s): R51 - HEADACHE Qualifiers: Headache type: unspecified Headache chronicity pattern: acute headache Intractability: intractable Qualified Code(s): R51 - Headache (5) Lightheaded Code(s): R42 - DIZZINESS AND GIDDINESS (6) Lung mass Code(s): R91.8 - OTHER NONSPECIFIC ABNORMAL FINDING OF LUNG FIELD (7) Sinus bradycardia Code(s): R00.1 - BRADYCARDIA, UNSPECIFIED Assessment/Plan - Problems (1) Seizures Code(s): R56.9 - UNSPECIFIED CONVULSIONS (2) BPH (benign prostatic hyperplasia) Code(s): N40.0 - BENIGN PROSTATIC HYPERPLASIA WITHOUT LOWER URINRY TRACT SYMP (3) Brain mass Assessment/Plan: For surgery in am. From a cardiac perspective, there are no absolute contraindications for Mr. Lynn to undergo resection of brain mass. 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 BP controlled; on no antrihypertensives presently. Code(s): I10 - ESSENTIAL (PRIMARY) HYPERTENSION (6) Sinus bradycardia Code(s): R00.1 - BRADYCARDIA, UNSPECIFIED
[2019-06-15] MEDS ORDERED: THROMBIN (BOVINE) 5,000 UNIT VIAL TP ONE ×3 (12:11→14:41)
[2019-06-15] MEDS ORDERED: BACITRACIN 15 GM TUBE TOPICAL OINTMENT ONE (12:11)
[2019-06-15] MEDS ORDERED: BACITRACIN 50,000 UNITS VIAL TP ONE ×2 (13:19→14:41)
[2019-06-15] MEDS ORDERED: DEXAMETHASONE SOD PHOSPHATE 4 MG/1 ML VIAL ONE ×3 (13:44→20:46)
[2019-06-15] MEDS ORDERED: ONDANSETRON 4 MG/2 ML VIAL ONE (13:44)
[2019-06-15] MEDS ORDERED: fentaNYL CITRATE 250 MCG/5 ML VIAL ONE (13:44)
[2019-06-15] MEDS ORDERED: LIDOCAINE HCL/PF 2% SDV 5ML VIAL ONE (13:44)
[2019-06-15] MEDS ORDERED: KETOROLAC TROMETHAMINE 30 MG/1 ML VIAL ONE (13:44)
[2019-06-15] MEDS ORDERED: PROPOFOL 20 ML ONE ×4 (13:44→14:52)
[2019-06-15] MEDS ORDERED: ROCURONIUM BROMIDE 50 MG/5 ML SYRINGE ONE ×2 (13:45→14:50)
--- NOTE | 2019-06-15 13:59 | CONS ---
DATE OF CONSULTATION: 06/14/2019 REFERRING PHYSICIAN: Henok Gibbons MD REASON FOR CONSULTATION: Suspected brain metastasis. HISTORY OF PRESENT ILLNESS: Patient is a 79-year-old gentleman with history of metastatic melanoma status post facial skin excision in 2014, for an in situ melanoma. He subsequently developed left lung metastasis by melanoma and underwent resection in 2018. 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 He had suspicion of progression of disease in the chest, but the bronchoscopy was negative. He was well until the day prior to admission when he developed right facial twitching while driving and then again while walking in the park he noted right facial twitching with headache and facial numbness. He came to the emergency department where CT of the head demonstrated a solitary left frontal lobe mass with surrounding edema. The MRI of the brain confirmed an enhancing 2.3 x 1.9 x 1.9-cm hemorrhagic mass in the region of the left middle frontal gyrus with surrounding vasogenic edema. He was started on Decadron and Keppra and has been seen by the Neurology and Neurosurgery teams. He is felt to be a candidate for surgical resection for suspected metastasis. We are asked to render an opinion. He denies prior radiation therapy, collagen vascular disease, nausea, vomiting, blurry vision. PAST MEDICAL HISTORY: Hypertension, benign prostatic hypertrophy, dysproteinemia, metastatic melanoma. ALLERGIES: No known drug allergies. CURRENT MEDICATIONS: Decadron, Flomax, Keppra, Protonix. SOCIAL HISTORY: He smoked cigarettes and quit in 1996. He does not smoke. He is retired. FAMILY HISTORY: Denies history of malignancy. REVIEW OF SYSTEMS: See HPI. PHYSICAL EXAMINATION: General: Well-appearing male appearing stated age in no acute distress. Vital Signs: Temperature 97.7, blood pressure 122/69, pulse 46, respiratory rate 98% room air. HEENT: Normocephalic, atraumatic. Moist mucous membranes. Anicteric sclerae. Clear oral cavity. Neck: Supple. Chest: Clear. Abdomen: Soft. Nontender, nondistended. Extremities: No peripheral edema. Neurologic: Alert and oriented x3. Cranial nerves 2-12 grossly intact. Sensation to light touch intact. No pronator drift. No focal motor deficit. Coordination normal. Gait is not tested. RADIOLOGIC DATA: See HPI. LABORATORY DATA: WBC 7.3, hemoglobin 10.4, platelet count 137,000. Electrolytes within normal limits. BUN 23.3, creatinine 0.9, calcium 9.0. LFTs within normal limits. Total protein 7.8, albumin 3.0. IMPRESSION: A 79-year-old gentleman with history of metastatic melanoma likely with a solitary metastasis in the frontal lobe. He is a candidate for surgical resection per Dr. Francisco Javier Mccoy. Given the need for pathologic confirmation and a relatively accessible location of the lesion, it would be reasonable to consider upfront surgical debulking followed by radiation therapy especially if this is melanoma, which is relatively radioresistant. We will discuss postoperative radiosurgery versus fractionated radiation therapy pending the pathology. The alternative nonsurgical treatment with radiosurgery alone would not be unreasonable if he were not a surgical candidate or declined surgery. Patient understands and favors proceeding with surgery. We will follow the pathology and arrange for radiation therapy postop. Thank you for allowing me to participate in the care of this patient. GERMAIN SCHULTZ M.D. [id number] MTDD
[2019-06-15] MEDS ORDERED: ceFAZolin SODIUM 1 GM VIAL IVPB ONE (14:00)
[2019-06-15] MEDS ORDERED: MIDAZOLAM HCL 2 MG/2 ML SINGLE DOSE VIAL ONE (14:03)
[2019-06-15] MEDS ORDERED: LIDOCAINE 1%/EPI 1:100000 (20 ML MULTI DOSE VIAL) IJ ONE ×3 (14:21)
[2019-06-15] MEDS ORDERED: EPHEDRINE SULFATE/0.9% NACL/PF 50 MG/10 ML SYRINGE NR ONE (14:54)
[2019-06-15] MEDS ORDERED: GLYCOPYRROLATE 0.2 MG/1 ML VIAL ONE (15:32)
[2019-06-15] MEDS ORDERED: NEOSTIGMINE METHYLSULFATE 0.5 MG/1 ML - 10 ML MDV ONE (15:32)
--- NOTE | 2019-06-15 15:57 | OP ---
Operative Note - Note: Operative Date: 06/15/19 Pre-Operative Diagnosis: L frontal hemorrhagic tumor with edema Operation: L fronto-parietal craniotomy, stereotactic navigation, resection of tumor, microdissection, cranial plating system Findings: hemorrhagic tumor Implants: [place] plating system Surgeon: Francisco Javier Mccoy Machine Adjuster Helper: Anibal Rossi Anesthesiologist/OIL WELL DRILLER: Tj Chacon Anesthesia: General Estimated Blood Loss (mls): 50 Operative Report Dictated: Yes
[2019-06-15] MEDS ORDERED: ACETAMINOPHEN WITH CODEINE 300MG/30MG TABLET PO PRN (16:00)
[2019-06-15] MEDS ORDERED: D5-NS + 20 MEQ KCL - 20 MEQ/1,000 ML INFUS.BAG IV SCH (16:00)
[2019-06-15] MEDS ORDERED: ONDANSETRON 4 MG/2 ML VIAL IVPUSH PRN ×2 (16:00→16:22)
[2019-06-15] MEDS ORDERED: MORPHINE SULFATE 2 MG/ML VIAL IVPUSH PRN (16:02)
--- NOTE | 2019-06-15 16:21 | PN ---
Progress Note (short form) - Note Progress Note: NEUROSURGERY In PACU No headache, N/V, Sz. PE: AF, VSS; O2 sat 100% HEENT- Dressing intact; Neck- supple; Cor- RR; Lungs- CTA B; Abd- benign, + BS; Ext- no sign of DVT CN- intact II-XII, face symmetric; Motor- 4/5 without drift; Sensation- intact LT; DTR- 1+/hyporeflexic Frozen- probable melanoma Probable solitary hemorrhagic L frontal metastatic melanoma with edema Decadron for edema Renetta for sz prophylaxis ICU for neuro monitoring Head CT in am Spoke to Jonas Stern per pt request to update
[2019-06-15] MEDS ORDERED: PROMETHAZINE HCL 25 MG/1 ML VIAL IVPUSH PRN (16:22)
[2019-06-15] MEDS ORDERED: LACTATED RINGERS SOLUTION 1,000 ML IV SCH (16:30)
[2019-06-15] MEDS ORDERED: ceFAZolin SODIUM 1 GM VIAL ONE (17:46)
[2019-06-15] MEDS: CEFAZOLIN 1 GM in DEXTROSE 5%-WATER - 50 ML IVPB SCH (18:17)
--- NOTE | 2019-06-15 21:24 | CONSULT ---
Consultation: REQUESTING PROVIDER: CONSULT REQUEST: We have been asked to medically evaluate this patient for sp craniotomy requiring q1h neurochecks. 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 Center sudden onset of symptoms while driving. Denies NV. CTH(06/12/19) w/ 2.7 x 1.7 x 1.7cm left frontal lobe hemorrhage with MRI Brain(06/13/19) results showing a hemorrhagic brain tumor. S/ p craniotomy and tumor resection(Darius, 06/15/19). REVIEW OF SYSTEMS: CONSTITUTIONAL: Absent: fever, chills, diaphoresis, generalized weakness, malaise, loss of appetite, weight change HEENT: Right-sided shooting facial pain--resolved, blurry vision--resolved Absent: rhinorrhea, nasal congestion, throat pain, throat swelling, difficulty swallowing, mouth swelling, ear pain, eye pain CARDIOVASCULAR: Absent: chest pain, syncope, palpitations, irregular heart rate, lightheadedness , peripheral edema RESPIRATORY: Absent: cough, shortness of breath, dyspnea with exertion, orthopnea, wheezing, stridor, hemoptysis GASTROINTESTINAL: Absent: abdominal pain, abdominal distension, nausea, vomiting, diarrhea, constipation, melena, hematochezia GENITOURINARY: Absent: dysuria, frequency, urgency, hesitancy, hematuria, flank pain, genital pain MUSCULOSKELETAL: Absent: myalgia, arthralgia, joint swelling, back pain, neck pain SKIN: Absent: rash, itching, pallor HEMATOLOGIC/IMMUNOLOGIC: Absent: easy bleeding, easy bruising, lymphadenopathy, frequent infections ENDOCRINE: Absent: unexplained weight gain, unexplained weight loss, heat intolerance, cold intolerance NEUROLOGIC: unsteady gait Absent: headache, focal weakness or paresthesias, dizziness, seizure, mental status changes, bladder or bowel incontinence PSYCHIATRIC: Absent: anxiety, depression, suicidal or homicidal ideation, hallucinations. PHYSICAL EXAMINATION Vital Signs - 24 hr 06/15/19 06/15/19 06/15/19 00:31 09:00 10:00 Temperature 97.6 F 98 F Pulse Rate 39 L 40 L Respiratory 20 18 Rate Blood Pressure 122/59 L 124/74 O2 Sat by Pulse 100 Oximetry (%) 06/15/19 06/15/19 06/15/19 16:11 16:25 16:40 Temperature 98.1 F Pulse Rate 67 68 58 L Respiratory 16 16 16 Rate Blood Pressure 122/50 L 126/49 L 130/74 O2 Sat by Pulse 100 100 100 Oximetry (%) 06/15/19 06/15/19 06/15/19 16:55 17:10 17:25 Temperature Pulse Rate 55 L 55 L 54 L Respiratory 16 14 14 Rate Blood Pressure 118/73 136/66 136/69 O2 Sat by Pulse 100 100 100 Oximetry (%) 06/15/19 06/15/19 06/15/19 17:40 17:55 18:25 Temperature Pulse Rate 55 L 52 L 60 Respiratory 16 14 14 Rate Blood Pressure 134/69 130/69 133/81 O2 Sat by Pulse 100 100 100 Oximetry (%) 06/15/19 06/15/19 06/15/19 19:05 19:35 20:05 Temperature Pulse Rate 55 L 45 L 44 L Respiratory 14 16 16 Rate Blood Pressure 130/80 138/68 132/66 O2 Sat by Pulse 100 100 100 Oximetry (%) GENERAL: Awake, alert, and fully oriented, in no acute distress. HEAD: NC. Left-paretial curvilinear surgical incision closed with nylon sutures. Dressing fell off at bedside. Right maxillary surgical scar EYES: Pupils equal, round and reactive to light, extraocular movements intact, sclera anicteric, conjunctiva clear and w/o pallor. No lid lag. EARS, NOSE, THROAT: Ears normal, nares patent, oropharynx clear without exudates. Moist mucous membranes. NECK: Normal range of motion, supple without lymphadenopathy, JVD, or masses. LUNGS: Breath sounds equal, clear to auscultation bilaterally. No wheezes, and no crackles. No accessory muscle use. HEART: Regular rate and rhythm, normal S1 and S2 without murmur, rub or gallop. ABDOMEN: Soft, nontender, not distended, normoactive bowel sounds, no guarding, no rebound, no masses. MUSCULOSKELETAL: Normal range of motion at all joints. No bony deformities or tenderness. No CVA tenderness. UPPER EXTREMITIES: 2+ pulses, warm, well-perfused. No cyanosis. No clubbing. Cap refill <2 seconds. No peripheral edema. LOWER EXTREMITIES: 2+ pulses, warm, well-perfused. No calf tenderness. No peripheral edema. NEUROLOGICAL: Cranial nerves II-XII intact. Normal speech. PSYCHIATRIC: Cooperative. Good eye contact. Appropriate mood and affect. SKIN: Warm, dry, normal turgor, no rashes or lesions noted. Laboratory Results - last 24 hr 06/14/19 06/14/19 05:25 05:25 Sodium 140 Potassium 4.2 Chloride 109 H Carbon Dioxide 23 Anion Gap 8 BUN 23.3 H Creatinine 0.9 Est GFR (CKD-EPI)AfAm 95.15 Est GFR (CKD-EPI)NonAf 82.09 Random Glucose 109 H Calcium 9.0 Total Bilirubin 0.5 AST 14 L ALT 22 Alkaline Phosphatase 73 Total Protein 7.8 Albumin 3.0 L TSH 0.37 D Serum MARQUISE Interpret IEP IgG 558 L IEP IgA 34 L IEP IgM 3599 H Active Medications Generic Name Dose Route Start Last Admin Trade Name Freq PRN Reason Stop Dose Admin Acetaminophen 650 mg 06/12/19 22:59 Tylenol - PO Q6H PRN PAIN 1-5 Acetaminophen/Codeine Phosphate 1 tab 06/15/19 16:00 Tylenol # 3 - PO Q4H PRN PAIN LEVEL 4 - 6 Dexamethasone Sodium Phosphate 4 mg 06/13/19 09:15 06/15/19 20:51 Decadron Injection - IVPUSH 4 mg Q6H-IV OMERO Administration Dexamethasone Sodium Phosphate 4 mg 06/15/19 21:00 Decadron Injection - IVPUSH Q6H-IV OMERO Docusate Sodium 100 mg 06/15/19 22:00 Colace - PO TID OMERO Fentanyl 50 mcg 06/15/19 16:22 06/15/19 20:45 Sublimaze Injection - IVPUSH 50 mcg [id number] PRN Administration PAIN-PACU ORDER X 4 DOSES ONLY Cefazolin Sodium 1 gm/ 50 mls @ 100 mls/hr 06/15/19 18:00 06/15/19 18:17 Dextrose IVPB 06/16/19 17:59 100 mls/hr Q8H-IV OMERO Administration Dextrose/Sodium Chloride 20 meq in 1,000 mls @ 80 mls/hr 06/15/19 16:00 Dextrose 5%-Normal Saline+20 Meq Kcl - IV ASDIR [facility] Lactated Ringer's 1,000 mls @ 125 mls/hr 06/15/19 16:30 Lactated Ringers Solution IV ASDIR [facility] Levetiracetam 500 mg 06/13/19 08:00 06/15/19 09:41 Keppra Injection - IVPB 500 mg BID [facility] Administration Morphine Sulfate 2 mg 06/15/19 16:02 Morphine Sulfate IVPUSH Q4H PRN PAIN LEVEL 7 - 10 Ondansetron HCl 4 mg 06/15/19 16:00 Zofran Injection IVPUSH Q6H PRN NAUSEA Ondansetron HCl 4 mg 06/15/19 16:22 Zofran Injection IVPUSH Q6H PRN NAUSEA AND/OR VOMITING Pantoprazole Sodium 40 mg 06/13/19 10:00 06/15/19 09:44 Protonix - PO Not Given DAILY [facility] Pantoprazole Sodium 40 mg 06/16/19 10:00 Protonix Iv IVPUSH DAILY [facility] Promethazine HCl 12.5 mg 06/15/19 16:22 Phenergan Injection - IVPUSH Q6H PRN NAUSEA-FOR RESCUE AFTER 15 MIN Tamsulosin HCl 0.4 mg 06/13/19 08:30 06/15/19 09:44 Flomax - PO Not Given DAILY@0830 [facility] ASSESSMENT/PLAN: 79M w/ pmh of 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 Center sudden onset of symptoms while driving. Denies [place]. CTH(06/12/19) w/ 2.7 x 1.7 x 1.7cm left frontal lobe hemorrhage with MRI Brain(06/13/19) results showing a hemorrhagic brain tumor. S/ p craniotomy and tumor resection(Darius, 06/15/19). Post-operative evaluation showing no FND. NEURO # Hemorrhagic Brain Mass --likely Melanoma Mets # Shooting Facial Pain -- likely from brain mass ---resolved # post-op pain - fall precautions - Neuro(Malkani) consulted --dexamethasone --Keprra - NeuroSx(Francisco Javier Mccoy) consulted: --given decadron(4mg q4h) for edema, cont post-operatively --s/p craniotomy + tumor resection(Darius, 06/15/19) --pain mgmt: acetaminophen 650mg q6h morphine 2mg q4h PRN, Tylenol #3 q4h PRN --post-op nausea: promethazine 12.5mg q6h PRN --fu Frozen Path --seiz prophylaxis: Keprra --rpt CTH in AM(06/16/19) CARIO # baseline bradycardia --possibly / athletic conditioning > EKG(06/12/19): sinus yesy, 1st degree HB, QTc 410 > Echo: LVEF 60%, mild TR, mild AR, PASP 23mmHg - Cardio(Radha) consulted --sinus yesy --cardio clearance: no absolute contraindications for NSX RESPIR # LLL segmentectomy - no respiratory distress - at-risk of post-op atelectasis - IS q1h GI # at risk-of steroid associated ulcers - PPI ppx RENAL # chronic BPH - home tamsulosin HEME # brain Ca --likely 2/2 melanoma mets - MedOnc(Edwige) onboard - Corthera(Janine) consulted: --possible post-op SRS/RT vs SRS FEN - LR @125 - CLD PPX: - GI: protonix 40mg IVP QD - SCDs d/t recent hemorrhagic brain Ca Dispo: We will continue to follow the patient. Thank you for this consultative opportunity. Visit type - Emergency Visit Emergency Visit: No - New Patient This patient is new to me today: Yes Date on this admission: 06/16/19 - Critical Care Critical Care patient: Yes Total Critical Care Time (in minutes): 35 Critical Care Statement: The care of this patient involved high complexity decision making to prevent further life threatening deterioration of the patient 's condition and/or to evaluate & treat vital organ system(s) failure or risk of failure. ATTENDING PHYSICIAN STATEMENT I saw and evaluated the patient. I reviewed the resident's note and discussed the case with the resident. I agree with the resident's findings and plan as documented. SUBJECTIVE: OBJECTIVE: ASSESSMENT AND PLAN:
[2019-06-16] MEDS: DEXAMETHASONE SOD PHOSPHATE 4 MG/1 ML VIAL IVPUSH SCH ×3 (00:14→09:40)
[2019-06-16] MEDS: DOCUSATE SODIUM 100 MG CAPSULE (FP) PO SCH ×4 (00:21→21:33)
[2019-06-16] MEDS ORDERED: DEXTROSE 5%-WATER - 50 ML IVPB ONE ×3 (01:30→14:35)
[2019-06-16] MEDS ORDERED: ceFAZolin SODIUM 1 GM VIAL ONE ×3 (01:30→14:34)
[2019-06-16] MEDS: CEFAZOLIN 1 GM in DEXTROSE 5%-WATER - 50 ML IVPB SCH ×2 (01:42→09:39)
[2019-06-16] MEDS ORDERED: ATROPINE SO4 0.4 MG/1 ML VIAL IVPUSH ONE (03:20)
--- NOTE | 2019-06-16 03:31 | PN ---
Progress Note (short form) - Note Progress Note: patient noted to have rates in the high 20's low 30's with MAPS in the 80's. patient is asymptomatic denying any chest pains/dizziness/headaches- pacer pads at bedside- stat BMP and trop ordered, will give atropine if patient becomes hemodynamically unstable - call placed to cardiology
[2019-06-16 03:51] LABS: HEMATOCRIT 29.3 % (35.4-49); MCH 32.8 pg (25.7-33.7); MEAN CELL VOLUME 96.4 fl (80-96); MEAN PLT VOLUME 8.4 fl (7.5-11.1); PLATELET COUNT 115 K/MM3 (134-434); RBC 3.04 M/mm3 (4.00-5.60); RDW 13.8 % (11.9-15.9); WHITE BLOOD COUNT 8.3 K/mm3 (4.0-10.0)
[2019-06-16] MEDS ORDERED: ATROPINE SULFATE 1 MG/10 ML DISP.SYRIN ONE (04:08)
[2019-06-16 04:28] LABS: BLOOD UREA NITROGEN 25.4 mg/dL (7-18); CALCIUM 8.5 mg/dL (8.5-10.1); CREATININE 0.9 mg/dL (0.55-1.3); MAGNESIUM 2.3 mg/dL (1.8-2.4); PHOSPHOROUS 4.4 mg/dL (2.5-4.9); POTASSIUM 4.2 mmol/L (3.5-5.1)
--- NOTE | 2019-06-16 06:17 | PN ---
Progress Note, Physician Chief Complaint: in ICU s/p L craniotomy mass excision, path pending cousin at bedside axox3 NAD VSS in good spirits no pain, no dizziness HR and BP at baseline; consults tests and meds d/w pt - Current Medication List Current Medications: Active Medications Acetaminophen (Tylenol -) 650 mg PO Q6H PRN PRN Reason: PAIN 1-5 Acetaminophen/Codeine Phosphate (Tylenol # 3 -) 1 tab PO Q4H PRN PRN Reason: PAIN LEVEL 4 - 6 Dexamethasone Sodium Phosphate (Decadron Injection -) 4 mg IVPUSH Q6H-IV [facility] Last Admin: 06/16/19 03:55 Dose: 4 mg Docusate Sodium (Colace -) 100 mg PO TID [facility] Last Admin: 06/16/19 05:09 Dose: 100 mg Cefazolin Sodium 1 gm/ (Dextrose) 50 mls @ 100 mls/hr IVPB Q8H-IV [facility] Stop: 06/16/19 17:59 Last Admin: 06/16/19 01:42 Dose: 100 mls/hr Dextrose/Sodium Chloride (Dextrose 5%-Normal Saline+20 Meq Kcl -) 20 meq in 1, 000 mls @ 80 mls/hr IV ASDIR [facility] Last Admin: 06/15/19 23:40 Dose: 0 mls Levetiracetam (Keppra Injection -) 500 mg IVPB BID [facility] Last Admin: 06/15/19 22:05 Dose: 500 mg Morphine Sulfate (Morphine Sulfate) 2 mg IVPUSH Q4H PRN PRN Reason: PAIN LEVEL 7 - 10 Ondansetron HCl (Zofran Injection) 4 mg IVPUSH Q6H PRN PRN Reason: NAUSEA Ondansetron HCl (Zofran Injection) 4 mg IVPUSH Q6H PRN PRN Reason: NAUSEA AND/OR VOMITING Pantoprazole Sodium (Protonix -) 40 mg PO DAILY [facility] Last Admin: 06/15/19 09:44 Dose: Not Given Pantoprazole Sodium (Protonix Iv) 40 mg IVPUSH DAILY [facility] Promethazine HCl (Phenergan Injection -) 12.5 mg IVPUSH Q6H PRN PRN Reason: NAUSEA-FOR RESCUE AFTER 15 MIN Tamsulosin HCl (Flomax -) 0.4 mg PO DAILY@0830 [facility] Last Admin: 06/15/19 09:44 Dose: Not Given - Objective Vital Signs: Vital Signs Temperature 98.1 F 06/15/19 23:30 Pulse Rate 30 L 06/16/19 04:00 Respiratory Rate 16 06/16/19 04:00 Blood Pressure 107/60 06/16/19 04:00 O2 Sat by Pulse Oximetry (%) 99 06/15/19 23:30 Constitutional: Yes: No Distress, Calm Eyes: Yes: Conjunctiva Clear HENT: Yes: Atraumatic Neck: Yes: Supple Cardiovascular: Yes: Regular Rate and Rhythm Respiratory: Yes: CTA Bilaterally Gastrointestinal: Yes: Soft. No: Tenderness Genitourinary: No: Hematuria Musculoskeletal: No: Joint Stiffness, Joint Swelling Extremities: No: Cold, Cool, Cyanosis Edema: No Integumentary: No: Rash, Venous Stasis Changes Neurological: Yes: WNL, Alert, Oriented ...Motor Strength: WNL Psychiatric: Yes: WNL, Alert, Oriented. No: Agitated, Suicidal Ideation Labs: CBC, BMP 06/16/19 03:40 06/16/19 03:40 INR, PTT INR 1.11 (0.83-1.09) H 06/14/19 10:26 - ....Imaging Other: Report Reviewed Assessment/Plan 79y M with PMH of metastatic melanoma to the lungs s/p partial L lower lobe pneumonectomy 2018, HTN, BPH, Vertigo admitted with "facial convulsions". s/p L frontal mass excision, path pending Neurology and NS f/u; cardiology f/u ONC; radiation f/u d/w pt and staff - PT AGREED WITH ABOVE t time 35 min
--- NOTE | 2019-06-16 07:51 | PN ---
Progress Note (short form) - Note Progress Note: Coverage for Dr. Jaycob Rai Chief Complaint: Events noted, notes reviewed, awake and alert, denies any chest pain or dyspnea, asymptomatic bradycardia noted- Mobitz I AVB noted with adequate blood pressure measurements History of Present Illness: Seen and examined in the ICU. Events noted, notes reviewed, awake and alert, denies any chest pain or dyspnea, asymptomatic bradycardia noted- Mobitz I AVB noted with adequate blood pressure measurements Rhythm review revealed the above noted sinus bradycardia with 1st degree AVB, Mobitz I AVB no evidence of advanced AV block or significant pauses- no indications for intervention/no indications for Atropine administration ( unclear if Atropine was administered) Medications: Current Medications Acetaminophen (Tylenol -) 650 mg PO Q6H PRN PRN Reason: PAIN 1-5 Acetaminophen/Codeine Phosphate (Tylenol # 3 -) 1 tab PO Q4H PRN PRN Reason: PAIN LEVEL 4 - 6 Dexamethasone Sodium Phosphate (Decadron Injection -) 4 mg IVPUSH Q6H-IV [facility] Last Admin: 06/16/19 03:55 Dose: 4 mg Docusate Sodium (Colace -) 100 mg PO TID [facility] Last Admin: 06/16/19 05:09 Dose: 100 mg Cefazolin Sodium 1 gm/ (Dextrose) 50 mls @ 100 mls/hr IVPB Q8H-IV [facility] Stop: 06/16/19 17:59 Last Admin: 06/16/19 01:42 Dose: 100 mls/hr Dextrose/Sodium Chloride (Dextrose 5%-Normal Saline+20 Meq Kcl -) 20 meq in 1, 000 mls @ 80 mls/hr IV ASDIR [facility] Last Admin: 06/15/19 23:40 Dose: 0 mls Levetiracetam (Keppra Injection -) 500 mg IVPB BID [facility] Last Admin: 06/15/19 22:05 Dose: 500 mg Morphine Sulfate (Morphine Sulfate) 2 mg IVPUSH Q4H PRN PRN Reason: PAIN LEVEL 7 - 10 Ondansetron HCl (Zofran Injection) 4 mg IVPUSH Q6H PRN PRN Reason: NAUSEA Ondansetron HCl (Zofran Injection) 4 mg IVPUSH Q6H PRN PRN Reason: NAUSEA AND/OR VOMITING Pantoprazole Sodium (Protonix -) 40 mg PO DAILY [facility] Last Admin: 06/15/19 09:44 Dose: Not Given Pantoprazole Sodium (Protonix Iv) 40 mg IVPUSH DAILY [facility] Promethazine HCl (Phenergan Injection -) 12.5 mg IVPUSH Q6H PRN PRN Reason: NAUSEA-FOR RESCUE AFTER 15 MIN Tamsulosin HCl (Flomax -) 0.4 mg PO DAILY@0830 [facility] Last Admin: 06/15/19 09:44 Dose: Not Given Review of Systems - Review of Systems Constitutional: denies: Chills, Fever Cardiovascular: As noted above Respiratory: denies: Cough or Sputum Production Gastrointestinal: denies: Nausea, Vomiting, Diarrhea, Constipation, Abdominal Pain Vital Signs: Last Vital Signs Temp Pulse Resp BP Pulse Ox 98.1 F 37 L 15 131/52 L 99 06/15/19 23:30 06/16/19 06:00 06/16/19 06:00 06/16/19 06:00 06/15/19 23:30 Intake & Output 06/13/19 06/14/19 06/15/19 06/16/19 23:59 23:59 23:59 23:59 Intake Total 102 053 0538 513 Output Total 1950 600 Balance 100 325 -350 -87 Weight 162 lb 0.2 oz 167 lb 5.999 oz Neck: Supple Negative JVD No Bruit Respiratory: Diminished breath sounds at the bases bilaterally Cardiovascular: S1 S2 Regular Rate and Rhythm Gastrointestinal: Soft Benign Normal Bowel Sounds Ext: Negative Edema Labs: CBC, BMP 06/16/19 03:40 06/16/19 03:40 Troponin, BNP 06/16/19 03:40 Troponin I 0.02 Hepatic Panel Total Bilirubin 0.5 mg/dL (0.2-1) 06/14/19 05:25 AST 14 U/L (15-37) L 06/14/19 05:25 ALT 22 U/L (13-61) 06/14/19 05:25 Alkaline Phosphatase 73 U/L (45-117) 06/14/19 05:25 Albumin 3.0 g/dl (3.4-5.0) L 06/14/19 05:25 INR, PTT INR 1.11 (0.83-1.09) H 06/14/19 10:26 Assessment/Plan ASSESSMENT: 1. Sinus bradycardia with 1st degree AVB, Mobitz I AVB no evidence of advanced AV block or significant pauses, asymptomatic 2. HTN 3. Left frontal hemorrhagic tumor post left fronto-parietal craniotomy, stereotactic navigation, resection of tumor, microdissection and cranial plating system in a patient with 4. Metastatic malignant melanoma, lung mets 5. Seizures 6. Pre- renal azotemia 7. Anemia/thrombocytopenia PLAN: 1. As outlined above no intervention is indicated for the above noted asymptomatic sinus bradycardia with 1st degree AVB, Mobitz I AVB 2. If antihypertensive therapy initiation is required avoid sinus node and AV nasir blocking agents 3. Anti-seizure therapy as per the primary team 4. Obtain Holter monitor for further evaluation of the above noted yesy- arrhythmia Alysa Robledo M.D.
[2019-06-16 08:06] LABS: IGA IMMUNOGLOBULIN 33 mg/dL (61-437); IGG QN IMMUNOGLOBULIN 571 mg/dL (700-1600); IGM QN SERUM 3116 mg/dL (15-143)
--- NOTE | 2019-06-16 08:21 | OP ---
DATE OF OPERATION: 06/15/2019 PREOPERATIVE DIAGNOSIS: Left frontal, solitary, hemorrhagic, metastatic melanoma. POSTOPERATIVE DIAGNOSIS: Left frontal, solitary, hemorrhagic, metastatic melanoma. ATTENDING SURGEON: Francisco Javier Mccoy MD [employer] OPERATOR: GLORIA Francisco ANESTHESIA: General endotracheal. ANESTHESIOLOGIST: Tj Chacon MD ESTIMATED BLOOD LOSS: 50 mL. PROCEDURES: 1. Left frontoparietal craniotomy for resection of tumor. 2. Stereotactic navigation. 3. Microsurgical dissection with operating microscope and microsurgical technique. FINDINGS: 1. Hemorrhagic tumor, which is friable at the edges. 2. Frozen section consistent with melanoma. INDICATION: Patient is a 79-year-old male who complains of a new onset seizure twice in the last few days prior to admission. He was found to have a left frontal hemorrhagic lesion. MRI confirmed the presence of a heterogenous-enhancing tumor with an intratumoral hemorrhage. Because of the new onset seizure and the solitary mass lesion, he is now consented for tumor resection. Risks of procedure include, but are not limited to, bleeding, infection, stroke, seizure, coma, and . The patient also understands the potential alternative stereotactic radiosurgery versus operation only with serial MRI examination. He has opted for surgical intervention. Pros and cons of treatment approach were discussed in detail. PROCEDURE IN DETAIL: After patient was taken to the operating room, he was placed in supine position. After anesthesia was induced and appropriate monitoring lines were placed, Sauceda catheter was inserted. The patient had previously undergone placement of fiducial scalp-applied fiducial markers, and a mask was also placed for localization. The tumor was localized to the left frontal region near the coronal suture. Horseshoe-shaped incision was planned, hinged anteriorly and laterally. After the patient was sterilely prepped and draped after the fiducial markers were removed, the navigation system was placed to plan the trajectory. At this point, an incision was made over the planned entry point after the skin was infiltrated with 6 mL 1% Xylocaine with epinephrine. Patient's head had been secured in [place] skull clamp so there were no unnecessary movements. The head was slightly turned toward the right. The scalp incision was opened with a No. 10 blade, and then Donny clips were applied. One small bur hole was placed posteriorly. At this point, a navigation probe was used to ascertain the approach, and it appeared to be accurate and near the medial portion of the craniotomy. The craniotomy bone flap was turned, and epidural hemostasis was obtained with Surgiflo. The dura was opened in a stellate fashion at which time underlying hemorrhagic brain tissue was identified. The brain was under somewhat slight pressure. Dural tack up sutures were applied. An approximately 1-cm coronal direction linear cortisectomy was carried out, and the underlying tumor was dissected free from the tumor wall. The resection of the tumor was carried out with pituitary rongeur, suctioned, and bipolar electrocautery. The operating microscope was utilized for both illumination and magnification. The deeper portion of the tumor was identified posteriorly and medially, and this was resected with a suction and bipolar electrocautery. The wound was copiously irrigated with saline. After hemostasis was obtained, the microscope was used for further exploration of the resection cavity. Tumor resection was also performed with the aide of the operating microscope for both illumination and magnification. Microsurgical techniques were utilized. The navigation probe was used to detect the edges of the tumor to ascertain the near gross complete resection. After hemostasis was obtained and further inspection of the tumor grijalva, a single layer of Surgicel laid into the resection cavity. The dura was then approximated with 4-0 Nurolon sutures. A piece of Duragen was laid in the epidural space. The craniotomy bone flap was secured with a [place] titanium plating system. At this point, the wound was once again irrigated, and the Donny clips were removed. The galea was closed with 3-0 Vicryl sutures and the skin was closed with 3-0 nylon interrupted suture. Xeroform, 4 x 4's, gauze, and a headwrap were applied. This was after the skull clamp was removed. There was no bleeding from the pin sites. The patient tolerated the procedure well and was extubated in the operating room. He was moving bilateral upper and lower extremities well without facial asymmetry in the recovery room. All needle, laps, sponges were correct. The patient received 1 dose of vancomycin and Ancef prior to the incision. OR time-out procedure was followed. The patient's family was contacted by telephone per the patient's request. FRANCISCO JAVIER MCCOY M.D. [id number] [facility]
[2019-06-16] MEDS: TAMSULOSIN HCL 0.4 MG CAP PO SCH (09:20)
[2019-06-16] MEDS: levETIRAcetam 500 MG/5 ML INJECTION VIAL IVPB SCH (09:39)
[2019-06-16] MEDS: PANTOPRAZOLE 40 MG TABLET PO SCH (09:40)
--- NOTE | 2019-06-16 09:50 | PN ---
Teaching Attending Note Name of Resident: Gail Basurto ATTENDING PHYSICIAN STATEMENT I saw and evaluated the patient. I reviewed the resident's note and discussed the case with the resident. I agree with the resident's findings and plan as documented. SUBJECTIVE: Patient seen and examined in the ICU. Awake and alert. Denies GARCIA, BOV, dizziness, etc. Bradycardia noted and Cardiology has assessed. Intake & Output 06/13/19 06/14/19 06/15/19 06/16/19 23:59 23:59 23:59 23:59 Intake Total 374 782 9732 513 Output Total 1950 600 Balance 100 325 -350 -87 Weight 162 lb 0.2 oz 167 lb 5.999 oz Last Vital Signs Temp Pulse Resp BP Pulse Ox 98.1 F 33 L 16 112/54 L 99 06/15/19 23:30 06/16/19 09:00 06/16/19 09:00 06/16/19 09:00 06/16/19 09:00 Active Medications Acetaminophen (Tylenol -) 650 mg PO Q6H PRN PRN Reason: PAIN 1-5 Acetaminophen/Codeine Phosphate (Tylenol # 3 -) 1 tab PO Q4H PRN PRN Reason: PAIN LEVEL 4 - 6 Dexamethasone Sodium Phosphate (Decadron Injection -) 4 mg IVPUSH Q6H-IV [facility] Last Admin: 06/16/19 09:40 Dose: 4 mg Docusate Sodium (Colace -) 100 mg PO TID [facility] Last Admin: 06/16/19 05:09 Dose: 100 mg Cefazolin Sodium 1 gm/ (Dextrose) 50 mls @ 100 mls/hr IVPB Q8H-IV [facility] Stop: 06/16/19 17:59 Last Admin: 06/16/19 09:39 Dose: 100 mls/hr Dextrose/Sodium Chloride (Dextrose 5%-Normal Saline+20 Meq Kcl -) 20 meq in 1, 000 mls @ 80 mls/hr IV ASDIR [facility] Last Admin: 06/15/19 23:40 Dose: 0 mls Levetiracetam (Keppra Injection -) 500 mg IVPB BID [facility] Last Admin: 06/16/19 09:39 Dose: 500 mg Morphine Sulfate (Morphine Sulfate) 2 mg IVPUSH Q4H PRN PRN Reason: PAIN LEVEL 7 - 10 Ondansetron HCl (Zofran Injection) 4 mg IVPUSH Q6H PRN PRN Reason: NAUSEA Ondansetron HCl (Zofran Injection) 4 mg IVPUSH Q6H PRN PRN Reason: NAUSEA AND/OR VOMITING Pantoprazole Sodium (Protonix -) 40 mg PO DAILY [facility] Last Admin: 06/16/19 09:40 Dose: Not Given Promethazine HCl (Phenergan Injection -) 12.5 mg IVPUSH Q6H PRN PRN Reason: NAUSEA-FOR RESCUE AFTER 15 MIN Tamsulosin HCl (Flomax -) 0.4 mg PO DAILY@0830 [facility] Last Admin: 06/16/19 09:20 Dose: 0.4 mg GENERAL: Awake, alert, and fully oriented, in no acute distress. HEAD: NC. Left-paretial curvilinear surgical incision closed with nylon sutures. Dressing fell off at bedside. Right maxillary surgical scar EYES: Pupils equal, round and reactive to light, extraocular movements intact, sclera anicteric, conjunctiva clear and w/o pallor. No lid lag. EARS, NOSE, THROAT: Ears normal, nares patent, oropharynx clear without exudates. Moist mucous membranes. NECK: Normal range of motion, supple without lymphadenopathy, JVD, or masses. LUNGS: Breath sounds equal, clear to auscultation bilaterally. No wheezes, and no crackles. No accessory muscle use. HEART: Regular rate and rhythm, normal S1 and S2 without murmur, rub or gallop. ABDOMEN: Soft, nontender, not distended, normoactive bowel sounds, no guarding, no rebound, no masses. MUSCULOSKELETAL: Normal range of motion at all joints. No bony deformities or tenderness. No CVA tenderness. UPPER EXTREMITIES: 2+ pulses, warm, well-perfused. No cyanosis. No clubbing. Cap refill <2 seconds. No peripheral edema. LOWER EXTREMITIES: 2+ pulses, warm, well-perfused. No calf tenderness. No peripheral edema. NEUROLOGICAL: Cranial nerves II-XII intact. Non-focal PSYCHIATRIC: Cooperative. Good eye contact. Appropriate mood and affect. SKIN: Warm, dry, normal turgor, no rashes or lesions noted. Laboratory Results - last 24 hr 06/14/19 06/15/19 06/16/19 05:25 05:33 03:40 WBC 8.3 RBC 3.04 L Hgb 10.0 L Hct 29.3 L MCV 96.4 H MCH 32.8 MCHC 34.0 RDW 13.8 Plt Count 115 L MPV 8.4 Sodium Potassium Chloride Carbon Dioxide Anion Gap BUN Creatinine Est GFR (CKD-EPI)AfAm Est GFR (CKD-EPI)NonAf Random Glucose Calcium Phosphorus Magnesium Creatine Kinase Troponin I IgG 571 L IgA 33 L IgM 3116 H Serum MARQUISE Interpret IEP IgG 558 L IEP IgA 34 L IEP IgM 3599 H 06/16/19 03:40 WBC RBC Hgb Hct MCV MCH MCHC RDW Plt Count MPV Sodium 141 Potassium 4.2 Chloride 108 H Carbon Dioxide 27 Anion Gap 6 L BUN 25.4 H Creatinine 0.9 Est GFR (CKD-EPI)AfAm 95.15 Est GFR (CKD-EPI)NonAf 82.09 Random Glucose 134 H Calcium 8.5 Phosphorus 4.4 Magnesium 2.3 Creatine Kinase 65 Troponin I 0.02 IgG IgA IgM Serum MARQUISE Interpret IEP IgG IEP IgA IEP IgM ASSESSMENT/PLAN: POD #1: Left fronto-parietal craniotomy, stereotactic navigation, resection of tumor, microdissection, cranial plating system 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
[2019-06-16] MEDS ORDERED: PANTOPRAZOLE SODIUM 40 MG VIAL IVPUSH SCH (10:00)
--- NOTE | 2019-06-16 10:48 | PN ---
Progress Note (short form) - Note Progress Note: NEUROSURGERY pod #1 In ICU No headache, N/V, Sz. PE: AF, VSS, NE 30's; O2 sat 100% HEENT- Dressing loose; Neck- supple; Cor- RR; Lungs- CTA B; Abd- benign, + BS; Ext- no sign of DVT CN- intact II-XII, face symmetric; Motor- 5/5 without drift; Sensation- intact LT; DTR- 1+/hyporeflexic Frozen- probable melanoma Head CT - surgical bed blood/air/packing material Probable solitary hemorrhagic L frontal metastatic melanoma with edema Decadron for edema, change to po Keppra for sz prophylaxis, change to po ICU for neuro monitoring Tx to floor care in am if doign ok today Complete iv abx Adv reg diet Spoke to pt and family at bedside Adjuvant RT when sutures out
--- NOTE | 2019-06-16 11:22 | PN ---
Progress Note (short form) - Note Progress Note: Neurology History of Present Illness - General Chief Complaint: Lightheaded History Source: Patient Exam Limitations: No Limitations PCP: Dr. 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 Pt stated that on day prior to admission when he was driving he had sudden onset of vertigo with R sided facial pains which felt like pins and needles and felt the R side of his face twitching. He pulled over and stated the episode lasted for 5 minutes. Does not know if he lost consciousness but the episode resolved and he went home. On day of admission, pt stated he was walking outside, had sudden onset of vertigo and stated he was making a repetitive noise with his mouth and had a headache. Episode lasted a few minutes and resolved. Pt stated he did not lose consciousness but grabbed on to a side rail to prevent him from falling. He has not had symptoms like this before. He denied incontinence during these episodes. He denied tinnitus, headache, changes in vision, numbness/tingling, weakness, ataxia, head injuries, chest pain, sob, abdominal pain, n/v/d, recent illnesses, recent travel, recent surgeries. Denied use of drugs, alcohol. I was contacted by the emergency department evening of admission and advised Ct of head performed and showed a solitary 2.7x1.7x1.7 cm left frontal lobe hemorrhage is seen with mild surrounding edema-possible underlying neoplastic disease. Chronic sphenoid sinusitis. discussed with Dr. Karan Mccoy who also reviewed the images and felt lesion was suspicious for metastatic melanoma. neurosurgery note reviewed, Pt started on Keppra for seizure prophylaxis. Pt started on decadron 4mg QID for cranial edema. Discussed case with neurosurgeon , Dr. Karan Mccoy. Patient interested and radiation therapy after surgery. Completed sterotactic MRI 06/15 with surgical intervention on same date. Repeat head ct completed, results pending. NSGY note reviewed. Patient in ICU under critical care monitoring. No significant neurologic changes, remains awake, verbal, without new deficits. Active Medications Acetaminophen (Tylenol -) 650 mg PO Q6H PRN PRN Reason: PAIN 1-5 Acetaminophen/Codeine Phosphate (Tylenol # 3 -) 1 tab PO Q4H PRN PRN Reason: PAIN LEVEL 4 - 6 Dexamethasone (Decadron -) 4 mg PO QID [facility] Docusate Sodium (Colace -) 100 mg PO TID [facility] Last Admin: 06/16/19 05:09 Dose: 100 mg Cefazolin Sodium 1 gm/ (Dextrose) 50 mls @ 100 mls/hr IVPB Q8H-IV [facility] Stop: 06/16/19 17:59 Last Admin: 06/16/19 09:39 Dose: 100 mls/hr Dextrose/Sodium Chloride (Dextrose 5%-Normal Saline+20 Meq Kcl -) 20 meq in 1, 000 mls @ 80 mls/hr IV ASDIR [facility] Last Admin: 06/15/19 23:40 Dose: 0 mls Levetiracetam (Keppra -) 500 mg PO BID [facility] Morphine Sulfate (Morphine Sulfate) 2 mg IVPUSH Q4H PRN PRN Reason: PAIN LEVEL 7 - 10 Ondansetron HCl (Zofran Injection) 4 mg IVPUSH Q6H PRN PRN Reason: NAUSEA Ondansetron HCl (Zofran Injection) 4 mg IVPUSH Q6H PRN PRN Reason: NAUSEA AND/OR VOMITING Pantoprazole Sodium (Protonix -) 40 mg PO DAILY [facility] Last Admin: 06/16/19 09:40 Dose: Not Given Promethazine HCl (Phenergan Injection -) 12.5 mg IVPUSH Q6H PRN PRN Reason: NAUSEA-FOR RESCUE AFTER 15 MIN Tamsulosin HCl (Flomax -) 0.4 mg PO DAILY@0830 [facility] Last Admin: 06/16/19 09:20 Dose: 0.4 mg *Physical Exam Vital Signs Period Temp Pulse Resp BP Sys/Giordano Pulse Ox Last 24 Hr 98.1 F-98.1 F 29-68 14-18 90-155/39-88 98-100 - Physical Exam General Appearance: Yes: Nourished, Appropriately Dressed, Thin. No: Apparent Distress HEENT: positive: EOMI, BARBRA, Normal ENT Inspection, TMs Normal, Pharynx Normal. negative: Scleral Icterus (R), Scleral Icterus (L) Neck: positive: Trachea midline, Supple. negative: Carotid bruit, Lymphadenopathy (R), Lymphadenopathy (L) Respiratory/Chest: positive: Lungs Clear, Normal Breath Sounds. negative: Crackles, Rales, Rhonchi, Stridor, Wheezing Cardiovascular: positive: Regular Rhythm, Regular Rate, S1, S2. negative: Edema , JVD, Murmur Vascular Pulses: Dorsalis-Pedis (R): 2+, Doralis-Pedis (L): 2+ Gastrointestinal/Abdominal: positive: Normal Bowel Sounds, Soft. negative: Tender Musculoskeletal: positive: Normal Inspection. negative: CVA Tenderness Extremity: positive: Normal Capillary Refill. negative: Pedal Edema, Swelling, Calf Tenderness Integumentary: positive: Normal Color, Dry, Warm Neurologic: positive: training development specialist II-XII NML intact, Fully Oriented, Alert, Normal Mood/ Affect, Normal Response, Motor Strength 5/5, Finger to Nose. negative: Facial Droop, Numbness, Sensory Deficit, Confused, Disoriented CBCD WBC 8.3 K/mm3 (4.0-10.0) 06/16/19 03:40 RBC 3.04 M/mm3 (4.00-5.60) L 06/16/19 03:40 Hgb 10.0 GM/dL (11.7-16.9) L 06/16/19 03:40 Hct 29.3 % (35.4-49) L 06/16/19 03:40 MCV 96.4 fl (80-96) H 06/16/19 03:40 MCHC 34.0 g/dl (32.0-35.9) 06/16/19 03:40 RDW 13.8 % (11.9-15.9) 06/16/19 03:40 Plt Count 115 K/MM3 (134-434) L 06/16/19 03:40 MPV 8.4 fl (7.5-11.1) 06/16/19 03:40 CMP Sodium 141 mmol/L (136-145) 06/16/19 03:40 Potassium 4.2 mmol/L (3.5-5.1) 06/16/19 03:40 Chloride 108 mmol/L (98-107) H 06/16/19 03:40 Carbon Dioxide 27 mmol/L (21-32) 06/16/19 03:40 Anion Gap 6 MMOL/L (8-16) L 06/16/19 03:40 BUN 25.4 mg/dL (7-18) H 06/16/19 03:40 Creatinine 0.9 mg/dL (0.55-1.3) 06/16/19 03:40 Random Glucose 134 mg/dL (74-106) H 06/16/19 03:40 Calcium 8.5 mg/dL (8.5-10.1) 06/16/19 03:40 Total Bilirubin 0.5 mg/dL (0.2-1) 06/14/19 05:25 AST 14 U/L (15-37) L 06/14/19 05:25 ALT 22 U/L (13-61) 06/14/19 05:25 Alkaline Phosphatase 73 U/L (45-117) 06/14/19 05:25 Total Protein 7.8 g/dl (6.4-8.2) 06/14/19 05:25 Albumin 3.0 g/dl (3.4-5.0) L 06/14/19 05:25 CARDIAC ENZYMES Creatine Kinase 65 U/L (26-308) 06/16/19 03:40 Troponin I 0.02 ng/ml (0.00-0.05) 06/16/19 03:40 Plan: 79y M, known to me from office visit with PMH of 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 Pt stated that on day prior to admission when he was driving he had sudden onset of vertigo with R sided facial pains which felt like pins and needles and felt the R side of his face twitching. He pulled over and stated the episode lasted for 5 minutes. Does not know if he lost consciousness but the episode resolved and he went home. On day of admission, pt stated he was walking outside, had sudden onset of vertigo and stated he was making a repetitive noise with his mouth and had a headache. Episode lasted a few minutes and resolved. Pt stated he did not lose consciousness but grabbed on to a side rail to prevent him from falling. He has not had symptoms like this before. He denied incontinence during these episodes. He denied tinnitus, headache, changes in vision, numbness/tingling, weakness, ataxia, head injuries, chest pain, sob, abdominal pain, n/v/d, recent illnesses, recent travel, recent surgeries. Denied use of drugs, alcohol. I was contacted by the emergency department evening of admission and advised Ct of head performed and showed a solitary 2.7x1.7x1.7 cm left frontal lobe hemorrhage is seen with mild surrounding edemaa-possible underlying neoplastic disease. Chronic sphenoid sinusitis. discussed with Dr. Karan Mccoy who also reviewed the images and felt lesion was suspicious for metastatic melanoma. neurosurgery note reviewed, Pt started on Keppra for seizure prophylaxis. Pt started on decadron 4mg QID for cranial edema. Discussed case with neurosurgeon , Dr. Karan Mccoy. Patient interested and radiation therapy after surgery. Completed sterotactic MRI 06/15 with surgical intervention on same date. Repeat head ct completed, results pending. NSGY note reviewed. Patient in ICU under critical care monitoring. No significant neurologic changes, remains awake, verbal, without new deficits. Remains on dexamethasone along with Keppra. Monitor blood pressure, maintain normotensive range. Radiation plan as per Onc. Continued close monitoring while in ICU. Critical care time 35 mins.
--- NOTE | 2019-06-16 13:54 | PN ---
Progress Note (short form) - Note Progress Note: Anesthesiology 79 y.o. man POD #1 s/p Craniotomy under GA. Pt. doing well in ICU. No ON issues. He is awake and alert this morning, denies pain or n/v. VSS. No apparent anesthesia-related issues. Stable post-operative course. Continue management as per primary team.
[2019-06-16] MEDS: DEXAMETHASONE 4 MG TABLET (FP) PO SCH ×3 (14:46→21:33)
--- NOTE | 2019-06-16 15:12 | PN ---
Progress Note (short form) - Note Progress Note: Seen in follow up. Comfortable, laying in bed. No complaints Inpatient meds reviewed: Current Medications Acetaminophen (Tylenol -) 650 mg PO Q6H PRN PRN Reason: PAIN 1-5 Acetaminophen/Codeine Phosphate (Tylenol # 3 -) 1 tab PO Q4H PRN PRN Reason: PAIN LEVEL 4 - 6 Dexamethasone (Decadron -) 4 mg PO QID [facility] Last Admin: 06/16/19 14:46 Dose: 4 mg Docusate Sodium (Colace -) 100 mg PO TID [facility] Last Admin: 06/16/19 14:46 Dose: 100 mg Cefazolin Sodium 1 gm/ (Dextrose) 50 mls @ 100 mls/hr IVPB Q8H-IV [facility] Stop: 06/16/19 17:59 Last Admin: 06/16/19 09:39 Dose: 100 mls/hr Dextrose/Sodium Chloride (Dextrose 5%-Normal Saline+20 Meq Kcl -) 20 meq in 1, 000 mls @ 80 mls/hr IV ASDIR [facility] Last Admin: 06/15/19 23:40 Dose: 0 mls Levetiracetam (Keppra -) 500 mg PO BID [facility] Morphine Sulfate (Morphine Sulfate) 2 mg IVPUSH Q4H PRN PRN Reason: PAIN LEVEL 7 - 10 Ondansetron HCl (Zofran Injection) 4 mg IVPUSH Q6H PRN PRN Reason: NAUSEA Ondansetron HCl (Zofran Injection) 4 mg IVPUSH Q6H PRN PRN Reason: NAUSEA AND/OR VOMITING Pantoprazole Sodium (Protonix -) 40 mg PO DAILY [facility] Last Admin: 06/16/19 09:40 Dose: Not Given Promethazine HCl (Phenergan Injection -) 12.5 mg IVPUSH Q6H PRN PRN Reason: NAUSEA-FOR RESCUE AFTER 15 MIN Tamsulosin HCl (Flomax -) 0.4 mg PO DAILY@0830 [facility] Last Admin: 06/16/19 09:20 Dose: 0.4 mg On Examination: Last Vital Signs Temp Pulse Resp BP Pulse Ox 98.1 F 33 L 16 112/54 L 99 06/15/19 23:30 06/16/19 09:00 06/16/19 09:00 06/16/19 09:00 06/16/19 09:00 General: In no acute distress. Extremities: No pallor or icterus. CVS: S1, S2, no gallop or murmur. Chest: breathing comfortably Abdomen: non-distended, non-tender. Neuro: Alert, oriented, non-focal Labs: CBC, BMP 06/16/19 03:40 06/16/19 03:40 Assessment. Metastatic melanoma, with newly discovered intracranial metastasis, s/p craniotomy. Doing well. Will require WBRT as outpatient.
--- NOTE | 2019-06-16 16:07 | PN ---
Physical Exam: SUBJECTIVE: Patient seen and examined. No acute events overnight. Pain is controlled. Pt denies any headaches, neurologic changes, or confusion. OBJECTIVE: Vital Signs Period Temp Pulse Resp BP Sys/Giordano Pulse Ox Last 24 Hr 98.1 F-98.1 F 29-68 14-18 90-155/39-88 98-100 GENERAL: The patient is awake, alert, and fully oriented, in no acute distress. HEAD: NC. Left-paretial curvilinear surgical incision closed with nylon sutures. Right maxillary surgical scar EYES: PERRL, extraocular movements intact, sclera anicteric, conjunctiva clear. No ptosis. ENT: Ears normal, nares patent, oropharynx clear without exudates, moist mucous membranes. NECK: Trachea midline, full range of motion, supple. LUNGS: Breath sounds equal, clear to auscultation bilaterally, no wheezes, no crackles, no accessory muscle use. HEART: Regular rate and rhythm, S1, S2 without murmur, rub or gallop. ABDOMEN: Soft, nontender, nondistended, normoactive bowel sounds, no guarding, no rebound, no hepatosplenomegaly, no masses. EXTREMITIES: 2+ pulses, warm, well-perfused, no edema. NEUROLOGICAL: Cranial nerves II through XII grossly intact. Normal speech, gait not observed. PSYCH: Normal mood, normal affect. SKIN: Warm, dry, normal turgor, no rashes or lesions noted Laboratory Results - last 24 hr CBC, BMP 06/16/19 03:40 06/16/19 03:40 Active Medications Acetaminophen (Tylenol -) 650 mg PO Q6H PRN PRN Reason: PAIN 1-5 Acetaminophen/Codeine Phosphate (Tylenol # 3 -) 1 tab PO Q4H PRN PRN Reason: PAIN LEVEL 4 - 6 Dexamethasone (Decadron -) 4 mg PO QID [facility] Last Admin: 06/16/19 14:46 Dose: 4 mg Docusate Sodium (Colace -) 100 mg PO TID [facility] Last Admin: 06/16/19 14:46 Dose: 100 mg Cefazolin Sodium 1 gm/ (Dextrose) 50 mls @ 100 mls/hr IVPB Q8H-IV [facility] Stop: 06/16/19 17:59 Last Admin: 06/16/19 09:39 Dose: 100 mls/hr Dextrose/Sodium Chloride (Dextrose 5%-Normal Saline+20 Meq Kcl -) 20 meq in 1, 000 mls @ 80 mls/hr IV ASDIR [facility] Last Admin: 06/15/19 23:40 Dose: 0 mls Levetiracetam (Keppra -) 500 mg PO BID [facility] Morphine Sulfate (Morphine Sulfate) 2 mg IVPUSH Q4H PRN PRN Reason: PAIN LEVEL 7 - 10 Ondansetron HCl (Zofran Injection) 4 mg IVPUSH Q6H PRN PRN Reason: NAUSEA Ondansetron HCl (Zofran Injection) 4 mg IVPUSH Q6H PRN PRN Reason: NAUSEA AND/OR VOMITING Pantoprazole Sodium (Protonix -) 40 mg PO DAILY [facility] Last Admin: 06/16/19 09:40 Dose: Not Given Promethazine HCl (Phenergan Injection -) 12.5 mg IVPUSH Q6H PRN PRN Reason: NAUSEA-FOR RESCUE AFTER 15 MIN Tamsulosin HCl (Flomax -) 0.4 mg PO DAILY@0830 [facility] Last Admin: 06/16/19 09:20 Dose: 0.4 mg ASSESSMENT/PLAN: Patient is a 79 year old male with PMH of 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 [place] sudden onset of symptoms while driving. Denies NV. CTH(06/12/19) w/ 2.7 x 1.7 x 1.7cm left frontal lobe hemorrhage with MRI Brain(06/13/19) results showing a hemorrhagic brain tumor. S/p craniotomy and tumor resection(Darius, ). Post-operative evaluation showing no FND. Neuro -Hemorrhagic Brain Mass --likely Melanoma Mets -Shooting Facial Pain -- likely from brain mass ---resolved -Fall precautions -Neuro consulted (Dr. Jerez): -Dexamethasone -Keppra -Neurosurgery consulated (Dr. Mccoy): -Given decadron (4mg q4h) for edema, cont post-operatively (change to po) -S/p craniotomy + tumor resection (Darius 06/15/19) -Pain management: acetaminophen 650mg q6h morphine 2mg q4h PRN, Tylenol #3 q4h PRN -Post-op nausea: promethazine 12.5mg q6h PRN -F/u Frozen Path -Seizure prophylaxis: Keprra 500mg BID (change to po) -Repeat CT head this am: s/p L frontal craniotomy, mild perilesional edema, small amount of postprocedural air within L frontal eztra-axial space -Complete IV abx Cardiovascular -Baseline bradycardia - possibly 2/2 athletic conditioning -EKG (06/12/19): sinus yesy, 1st degree HB, QTc 410 -Echo: LVEF 60%, mild TR, mild AR, PASP 23mmHg -Cardio (Dr. 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 Gibbons) -RadOnc following (Dr. Mehta) --possible post-op SRS/RT vs SRS FEN -D/c fluids -Advance to regular diet PPX -GI: protonix 40mg IVP QD -SCDs d/t recent hemorrhagic brain Ca Dispo: We will continue to follow the patient. Thank you for this consultative opportunity. Visit type - Emergency Visit Emergency Visit: No - New Patient This patient is new to me today: Yes Date on this admission: 06/16/19 - Critical Care Critical Care patient: Yes Total Critical Care Time (in minutes): 45 Critical Care Statement: The care of this patient involved high complexity decision making to prevent further life threatening deterioration of the patient 's condition and/or to evaluate & treat vital organ system(s) failure or risk of failure. ATTENDING PHYSICIAN STATEMENT I saw and evaluated the patient. I reviewed the resident's note and discussed the case with the resident. I agree with the resident's findings and plan as documented. SUBJECTIVE: OBJECTIVE: ASSESSMENT AND PLAN:
--- NOTE | 2019-06-16 16:53 | EKG ---
Test Reason : Blood Pressure : / mmHG Vent. Rate : 030 BPM Atrial Rate : 042 BPM P-R Int : 000 ms QRS Dur : 116 ms QT Int : 542 ms P-R-T Axes : 000 -12 037 degrees QTc Int : 383 ms SINUS BRADYCARDIA WITH 1ST DEGREE A-V BLOCK WITH SINUS ARRHYTHMIA LEFT VENTRICULAR HYPERTROPHY WITH QRS WIDENING ABNORMAL ECG WHEN COMPARED WITH ECG OF 16-JUN-2019 02:34, RHYTHM ABOVE CLINICAL CORRELATION IS RECOMMENDED Confirmed by RAFFY HAWLEY, ENA ([id number]) on 06/16/2019 4:53:00 PM Referred By: Mariam GAMEZ Confirmed By:ENA AKBAR MD
--- NOTE | 2019-06-16 17:01 | EKG ---
Test Reason : Blood Pressure : / mmHG Vent. Rate : 030 BPM Atrial Rate : 030 BPM P-R Int : 000 ms QRS Dur : 118 ms QT Int : 526 ms P-R-T Axes : 000 -07 008 degrees QTc Int : 371 ms SINUS BRADYCARDIA WITH 1ST DEGREE A-V BLOCK WITH 2ND DEGREE A-V BLOCK (MOBITZ I) NON-SPECIFIC INTRA-VENTRICULAR CONDUCTION DELAY NONSPECIFIC T WAVE ABNORMALITY ABNORMAL ECG WHEN COMPARED WITH ECG OF 12-JUN-2019 17:10, NOTE: DECREASE IN THE PULSE RATE NONSPECIFIC T WAVE ABNORMALITY NOW EVIDENT IN INFERIOR LEADS NONSPECIFIC T WAVE ABNORMALITY, WORSE IN LATERAL LEADS Confirmed by RAFFY HAWLEY, ENA ([id number]) on 06/16/2019 5:00:47 PM Referred By: Confirmed By:ENA AKBAR MD
[2019-06-16] MEDS: levETIRAcetam 500 MG TABLET (FP) PO SCH (21:33)
[2019-06-17] MEDS: DOCUSATE SODIUM 100 MG CAPSULE (FP) PO SCH ×3 (06:05→21:23)
--- NOTE | 2019-06-17 07:11 | PN ---
Progress Note (short form) - Note Progress Note: Coverage for Dr. Jaycob Rai Chief Complaint: Events noted, notes reviewed, awake and alert, denies any chest pain or dyspnea, asymptomatic bradycardia persists- Mobitz I AVB persists with adequate blood pressure measurements History of Present Illness: Seen and examined in the ICU. Events noted, notes reviewed, awake and alert, denies any chest pain or dyspnea, asymptomatic bradycardia persists- Mobitz I AVB persists with adequate blood pressure measurements As noted rhythm review revealed the above noted sinus bradycardia with 1st degree AVB, Mobitz I AVB no evidence of advanced AV block or significant pauses - no indications for intervention/no indications for Atropine administration ( Atropine was administered as per nursing staff) Medications: Current Medications Acetaminophen (Tylenol -) 650 mg PO Q6H PRN PRN Reason: PAIN 1-5 Acetaminophen/Codeine Phosphate (Tylenol # 3 -) 1 tab PO Q4H PRN PRN Reason: PAIN LEVEL 4 - 6 Dexamethasone (Decadron -) 4 mg PO QID [facility] Last Admin: 06/16/19 21:33 Dose: 4 mg Docusate Sodium (Colace -) 100 mg PO TID [facility] Last Admin: 06/17/19 06:05 Dose: 100 mg Levetiracetam (Keppra -) 500 mg PO BID [facility] Last Admin: 06/16/19 21:33 Dose: 500 mg Morphine Sulfate (Morphine Sulfate) 2 mg IVPUSH Q4H PRN PRN Reason: PAIN LEVEL 7 - 10 Ondansetron HCl (Zofran Injection) 4 mg IVPUSH Q6H PRN PRN Reason: NAUSEA Ondansetron HCl (Zofran Injection) 4 mg IVPUSH Q6H PRN PRN Reason: NAUSEA AND/OR VOMITING Pantoprazole Sodium (Protonix -) 40 mg PO DAILY [facility] Last Admin: 06/16/19 09:40 Dose: Not Given Promethazine HCl (Phenergan Injection -) 12.5 mg IVPUSH Q6H PRN PRN Reason: NAUSEA-FOR RESCUE AFTER 15 MIN Tamsulosin HCl (Flomax -) 0.4 mg PO DAILY@0830 [facility] Last Admin: 06/16/19 09:20 Dose: 0.4 mg Review of Systems - Review of Systems Constitutional: denies: Chills, Fever Cardiovascular: As noted above Respiratory: denies: Cough or Sputum Production Gastrointestinal: denies: Nausea, Vomiting, Diarrhea, Constipation, Abdominal Pain Vital Signs: Last Vital Signs Temp Pulse Resp BP Pulse Ox 97.4 F L 28 L 18 117/50 L 99 06/17/19 06:00 06/17/19 06:00 06/17/19 06:00 06/17/19 06:00 06/16/19 21:00 Intake & Output 06/14/19 06/15/19 06/16/19 06/17/19 23:59 23:59 23:59 23:59 Intake Total 325 1600 1563 100 Output Total 1950 1800 100 Balance 325 -350 -237 0 Weight 167 lb 5.999 oz 161 lb 3.2 oz Neck: Supple Negative JVD No Bruit Respiratory: Diminished breath sounds at the bases bilaterally Cardiovascular: S1 S2 Regular Rate and Rhythm Gastrointestinal: Soft Benign Normal Bowel Sounds Ext: Negative Edema Labs: Blood test from this AM pending CBC, BMP 06/16/19 03:40 06/16/19 03:40 Hepatic Panel Total Bilirubin 0.5 mg/dL (0.2-1) 06/14/19 05:25 AST 14 U/L (15-37) L 06/14/19 05:25 ALT 22 U/L (13-61) 06/14/19 05:25 Alkaline Phosphatase 73 U/L (45-117) 06/14/19 05:25 Albumin 3.0 g/dl (3.4-5.0) L 06/14/19 05:25 INR, PTT INR 1.11 (0.83-1.09) H 06/14/19 10:26 Assessment/Plan ASSESSMENT: 1. Sinus bradycardia with 1st degree AVB, Mobitz I AVB no evidence of advanced AV block or significant pauses, asymptomatic 2. HTN 3. Left frontal hemorrhagic tumor post left fronto-parietal craniotomy, stereotactic navigation, resection of tumor, microdissection and cranial plating system in a patient with, 4. Metastatic malignant melanoma, lung mets 5. Seizures 6. Pre- renal azotemia 7. Anemia/thrombocytopenia PLAN: 1. As outlined above no intervention is indicated for the above noted asymptomatic sinus bradycardia with 1st degree AVB, Mobitz I AVB 2. If antihypertensive therapy initiation is required avoid sinus node and AV nasir blocking agents 3. Anti-seizure therapy as per the primary team 4. Await Holter monitor for further evaluation of the above noted yesy- arrhythmia Alysa Robledo M.D.
[2019-06-17 07:47] LABS: HEMATOCRIT 29.8 % (35.4-49); HEMOGLOBIN 10.2 GM/dL (11.7-16.9); MCH 33.1 pg (25.7-33.7); MCHC 34.3 g/dl (32.0-35.9); MEAN CELL VOLUME 96.6 fl (80-96); MEAN PLT VOLUME 9.1 fl (7.5-11.1); PLATELET COUNT 114 K/MM3 (134-434); RBC 3.09 M/mm3 (4.00-5.60); RDW 13.5 % (11.9-15.9); WHITE BLOOD COUNT 6.3 K/mm3 (4.0-10.0)
[2019-06-17 08:24] LABS: ALBUMIN 2.6 g/dl (3.4-5.0); BILIRUBIN,TOTAL 0.6 mg/dL (0.2-1); BLOOD UREA NITROGEN 25.9 mg/dL (7-18); CALCIUM 8.4 mg/dL (8.5-10.1); CREATININE 0.8 mg/dL (0.55-1.3); MAGNESIUM 2.4 mg/dL (1.8-2.4); PHOSPHOROUS 3.5 mg/dL (2.5-4.9); POTASSIUM 4.1 mmol/L (3.5-5.1)
--- NOTE | 2019-06-17 08:56 | PN ---
Progress Note (short form) - Note Progress Note: NEUROSURGERY POD #2 In ICU No headache, N/V, Sz. Cardiology input noted PE: AF, VSS, OK 30's; O2 sat 100% HEENT- Stockingnet and 4x4 [address], incision C/D/I; Neck- supple; Cor- RR; Lungs- CTA B; Abd- benign, + BS; Ext- no sign of DVT CN- intact II-XII, face symmetric; Motor- 5/5 without drift; Sensation- intact LT; DTR- 1+/hyporeflexic Frozen- probable melanoma Head CT - surgical bed blood/air/packing material Probable solitary hemorrhagic L frontal metastatic melanoma with edema Decadron for edema, changed to po; decrease to 4 mg bid by discharge and continue through RT Keppra for sz prophylaxis, changed to po 500 mg and continue Tx to floor care Completed iv abx On reg diet Spoke to pt Outpatient visit in 7-10 days for suture removal Adjuvant RT when sutures out and incision healed Care d/w Dr Jett
[2019-06-17] MEDS ORDERED: PT OWN MED DRAWER 7, Y5N ONE (09:03)
[2019-06-17] MEDS: TAMSULOSIN HCL 0.4 MG CAP PO SCH (09:21)
[2019-06-17] MEDS: levETIRAcetam 500 MG TABLET (FP) PO SCH ×2 (09:21→21:24)
[2019-06-17] MEDS: PANTOPRAZOLE 40 MG TABLET PO SCH (09:21)
[2019-06-17] MEDS: DEXAMETHASONE 4 MG TABLET (FP) PO SCH ×4 (09:21→21:23)
--- NOTE | 2019-06-17 09:46 | PN ---
Progress Note, Physician Chief Complaint: doing well no GARCIA LOC focal c/o low HR low BP asymptomatic - Current Medication List Current Medications: Active Medications Acetaminophen (Tylenol -) 650 mg PO Q6H PRN PRN Reason: PAIN 1-5 Acetaminophen/Codeine Phosphate (Tylenol # 3 -) 1 tab PO Q4H PRN PRN Reason: PAIN LEVEL 4 - 6 Dexamethasone (Decadron -) 4 mg PO QID [facility] Last Admin: 06/17/19 09:21 Dose: 4 mg Docusate Sodium (Colace -) 100 mg PO TID [facility] Last Admin: 06/17/19 06:05 Dose: 100 mg Levetiracetam (Keppra -) 500 mg PO BID [facility] Last Admin: 06/17/19 09:21 Dose: 500 mg Morphine Sulfate (Morphine Sulfate) 2 mg IVPUSH Q4H PRN PRN Reason: PAIN LEVEL 7 - 10 Ondansetron HCl (Zofran Injection) 4 mg IVPUSH Q6H PRN PRN Reason: NAUSEA Ondansetron HCl (Zofran Injection) 4 mg IVPUSH Q6H PRN PRN Reason: NAUSEA AND/OR VOMITING Pantoprazole Sodium (Protonix -) 40 mg PO DAILY [facility] Last Admin: 06/17/19 09:21 Dose: 40 mg Promethazine HCl (Phenergan Injection -) 12.5 mg IVPUSH Q6H PRN PRN Reason: NAUSEA-FOR RESCUE AFTER 15 MIN Tamsulosin HCl (Flomax -) 0.4 mg PO DAILY@0830 [facility] Last Admin: 06/17/19 09:21 Dose: 0.4 mg - Objective Vital Signs: Vital Signs Temperature 97.4 F L 06/17/19 06:00 Pulse Rate 29 L 06/17/19 07:00 Respiratory Rate 17 06/17/19 07:00 Blood Pressure 105/60 06/17/19 07:00 O2 Sat by Pulse Oximetry (%) 99 06/16/19 21:00 Constitutional: Yes: No Distress, Calm Eyes: Yes: Conjunctiva Clear HENT: Yes: Atraumatic Neck: Yes: Supple Cardiovascular: Yes: Regular Rate and Rhythm Respiratory: Yes: CTA Bilaterally Gastrointestinal: Yes: Soft. No: Tenderness Musculoskeletal: No: Joint Stiffness, Joint Swelling Extremities: No: Cold, Cool Edema: No Integumentary: No: Rash, Venous Stasis Changes Neurological: Yes: Alert ...Motor Strength: WNL Psychiatric: Yes: Alert, Oriented. No: Agitated Labs: CBC, BMP 06/17/19 06:48 06/17/19 06:48 INR, PTT INR 1.11 (0.83-1.09) H 06/14/19 10:26 Assessment/Plan 79y M with PMH of metastatic melanoma to the lungs s/p partial L lower lobe pneumonectomy 2017, HTN, BPH, Vertigo admitted with "facial convulsions". s/p L frontal mass excision, path pending po steroids; po keppra Neurology and NS f/u; cardiology f/u ONC; radiation f/u d/w pt and staff -
--- NOTE | 2019-06-17 10:13 | PN ---
Teaching Attending Note Name of Resident: Edward Cunha ATTENDING PHYSICIAN STATEMENT I saw and evaluated the patient. I reviewed the resident's note and discussed the case with the resident. I agree with the resident's findings and plan as documented. SUBJECTIVE: Patient seen and examined in the ICU. Awake and alert. Denies GARCIA, BOV, dizziness, etc. Intake & Output 06/14/19 06/15/19 06/16/19 06/17/19 23:59 23:59 23:59 23:59 Intake Total 325 1600 1563 100 Output Total 1950 1800 100 Balance 325 -350 -237 0 Weight 167 lb 5.999 oz 161 lb 3.2 oz Last Vital Signs Temp Pulse Resp BP Pulse Ox 97.4 F L 29 L 17 105/60 99 06/17/19 06:00 06/17/19 07:00 06/17/19 07:00 06/17/19 07:00 06/16/19 21:00 Active Medications Acetaminophen (Tylenol -) 650 mg PO Q6H PRN PRN Reason: PAIN 1-5 Acetaminophen/Codeine Phosphate (Tylenol # 3 -) 1 tab PO Q4H PRN PRN Reason: PAIN LEVEL 4 - 6 Dexamethasone (Decadron -) 4 mg PO QID [facility] Last Admin: 06/17/19 09:21 Dose: 4 mg Docusate Sodium (Colace -) 100 mg PO TID [facility] Last Admin: 06/17/19 06:05 Dose: 100 mg Levetiracetam (Keppra -) 500 mg PO BID [facility] Last Admin: 06/17/19 09:21 Dose: 500 mg Morphine Sulfate (Morphine Sulfate) 2 mg IVPUSH Q4H PRN PRN Reason: PAIN LEVEL 7 - 10 Ondansetron HCl (Zofran Injection) 4 mg IVPUSH Q6H PRN PRN Reason: NAUSEA Ondansetron HCl (Zofran Injection) 4 mg IVPUSH Q6H PRN PRN Reason: NAUSEA AND/OR VOMITING Pantoprazole Sodium (Protonix -) 40 mg PO DAILY [facility] Last Admin: 06/17/19 09:21 Dose: 40 mg Promethazine HCl (Phenergan Injection -) 12.5 mg IVPUSH Q6H PRN PRN Reason: NAUSEA-FOR RESCUE AFTER 15 MIN Tamsulosin HCl (Flomax -) 0.4 mg PO DAILY@0830 [facility] Last Admin: 06/17/19 09:21 Dose: 0.4 mg GENERAL: Awake, alert, and fully oriented, in no acute distress. HEAD: NC. Left-paretial curvilinear surgical incision closed with nylon sutures. Dressing fell off at bedside. Right maxillary surgical scar EYES: Pupils equal, round and reactive to light, extraocular movements intact, sclera anicteric, conjunctiva clear and w/o pallor. No lid lag. EARS, NOSE, THROAT: Ears normal, nares patent, oropharynx clear without exudates. Moist mucous membranes. NECK: Normal range of motion, supple without lymphadenopathy, JVD, or masses. LUNGS: Breath sounds equal, clear to auscultation bilaterally. No wheezes, and no crackles. No accessory muscle use. HEART: Regular rate and rhythm, normal S1 and S2 without murmur, rub or gallop. ABDOMEN: Soft, nontender, not distended, normoactive bowel sounds, no guarding, no rebound, no masses. MUSCULOSKELETAL: Normal range of motion at all joints. No bony deformities or tenderness. No CVA tenderness. UPPER EXTREMITIES: 2+ pulses, warm, well-perfused. No cyanosis. No clubbing. Cap refill <2 seconds. No peripheral edema. LOWER EXTREMITIES: 2+ pulses, warm, well-perfused. No calf tenderness. No peripheral edema. NEUROLOGICAL: Cranial nerves II-XII intact. Non-focal PSYCHIATRIC: Cooperative. Good eye contact. Appropriate mood and affect. SKIN: Warm, dry, normal turgor, no rashes or lesions noted. Laboratory Results - last 24 hr 06/17/19 06/17/19 06:48 06:48 WBC 6.3 RBC 3.09 L Hgb 10.2 L Hct 29.8 L MCV 96.6 H MCH 33.1 MCHC 34.3 RDW 13.5 Plt Count 114 L MPV 9.1 Sodium 140 Potassium 4.1 Chloride 109 H Carbon Dioxide 26 Anion Gap 5 L BUN 25.9 H Creatinine 0.8 Est GFR (CKD-EPI)AfAm 99.87 Est GFR (CKD-EPI)NonAf 86.17 Random Glucose 109 H Calcium 8.4 L Phosphorus 3.5 Magnesium 2.4 Total Bilirubin 0.6 AST 10 L ALT 19 Alkaline Phosphatase 63 Total Protein 7.0 Albumin 2.6 L ASSESSMENT/PLAN: POD #2: Left fronto-parietal craniotomy, stereotactic navigation, resection of tumor, microdissection, cranial plating system 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
--- NOTE | 2019-06-17 10:48 | PN ---
Progress Note (short form) - Note Progress Note: Neurology History of Present Illness - General Chief Complaint: Lightheaded History Source: Patient Exam Limitations: No Limitations PCP: Dr. 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 Pt stated that on day prior to admission when he was driving he had sudden onset of vertigo with R sided facial pains which felt like pins and needles and felt the R side of his face twitching. He pulled over and stated the episode lasted for 5 minutes. Does not know if he lost consciousness but the episode resolved and he went home. On day of admission, pt stated he was walking outside, had sudden onset of vertigo and stated he was making a repetitive noise with his mouth and had a headache. Episode lasted a few minutes and resolved. Pt stated he did not lose consciousness but grabbed on to a side rail to prevent him from falling. He has not had symptoms like this before. He denied incontinence during these episodes. He denied tinnitus, headache, changes in vision, numbness/tingling, weakness, ataxia, head injuries, chest pain, sob, abdominal pain, n/v/d, recent illnesses, recent travel, recent surgeries. Denied use of drugs, alcohol. I was contacted by the emergency department evening of admission and advised Ct of head performed and showed a solitary 2.7x1.7x1.7 cm left frontal lobe hemorrhage is seen with mild surrounding edema-possible underlying neoplastic disease. Chronic sphenoid sinusitis. discussed with Dr. Karan Mccoy who also reviewed the images and felt lesion was suspicious for metastatic melanoma. neurosurgery note reviewed, Pt started on Keppra for seizure prophylaxis. Pt started on decadron 4mg QID for cranial edema. Discussed case with neurosurgeon , Dr. Karan Mccoy. Patient interested and radiation therapy after surgery. Completed sterotactic MRI 06/15 with surgical intervention on same date. Repeat head ct completed, previously seen lesion reduced in size to 1.5 X 1.4 cm from 2.1 X 1.9cm. NSGY note reviewed. Patient in ICU under critical care monitoring. No significant neurologic changes, remains awake, verbal, without new deficits. Active Medications Acetaminophen (Tylenol -) 650 mg PO Q6H PRN PRN Reason: PAIN 1-5 Acetaminophen/Codeine Phosphate (Tylenol # 3 -) 1 tab PO Q4H PRN PRN Reason: PAIN LEVEL 4 - 6 Dexamethasone (Decadron -) 4 mg PO QID [facility] Last Admin: 06/17/19 09:21 Dose: 4 mg Docusate Sodium (Colace -) 100 mg PO TID [facility] Last Admin: 06/17/19 06:05 Dose: 100 mg Levetiracetam (Keppra -) 500 mg PO BID [facility] Last Admin: 06/17/19 09:21 Dose: 500 mg Morphine Sulfate (Morphine Sulfate) 2 mg IVPUSH Q4H PRN PRN Reason: PAIN LEVEL 7 - 10 Ondansetron HCl (Zofran Injection) 4 mg IVPUSH Q6H PRN PRN Reason: NAUSEA Ondansetron HCl (Zofran Injection) 4 mg IVPUSH Q6H PRN PRN Reason: NAUSEA AND/OR VOMITING Pantoprazole Sodium (Protonix -) 40 mg PO DAILY [facility] Last Admin: 06/17/19 09:21 Dose: 40 mg Promethazine HCl (Phenergan Injection -) 12.5 mg IVPUSH Q6H PRN PRN Reason: NAUSEA-FOR RESCUE AFTER 15 MIN Tamsulosin HCl (Flomax -) 0.4 mg PO DAILY@0830 [facility] Last Admin: 06/17/19 09:21 Dose: 0.4 mg *Physical Exam Vital Signs Period Temp Pulse Resp BP Sys/Giordano Pulse Ox Last 24 Hr 97.4 F 28-37 14-18 94-134/43-84 99 - Physical Exam General Appearance: Yes: Nourished, Appropriately Dressed, Thin. No: Apparent Distress HEENT: positive: EOMI, BARBRA, Normal ENT Inspection, TMs Normal, Pharynx Normal. negative: Scleral Icterus (R), Scleral Icterus (L) Neck: positive: Trachea midline, Supple. negative: Carotid bruit, Lymphadenopathy (R), Lymphadenopathy (L) Respiratory/Chest: positive: Lungs Clear, Normal Breath Sounds. negative: Crackles, Rales, Rhonchi, Stridor, Wheezing Cardiovascular: positive: Regular Rhythm, Regular Rate, S1, S2. negative: Edema , JVD, Murmur Vascular Pulses: Dorsalis-Pedis (R): 2+, Doralis-Pedis (L): 2+ Gastrointestinal/Abdominal: positive: Normal Bowel Sounds, Soft. negative: Tender Musculoskeletal: positive: Normal Inspection. negative: CVA Tenderness Extremity: positive: Normal Capillary Refill. negative: Pedal Edema, Swelling, Calf Tenderness Integumentary: positive: Normal Color, Dry, Warm Neurologic: positive: drafter engineering II-XII NML intact, Fully Oriented, Alert, Normal Mood/ Affect, Normal Response, Motor Strength 5/5, Finger to Nose. negative: Facial Droop, Numbness, Sensory Deficit, Confused, Disoriented CBCD WBC 6.3 K/mm3 (4.0-10.0) 06/17/19 06:48 RBC 3.09 M/mm3 (4.00-5.60) L 06/17/19 06:48 Hgb 10.2 GM/dL (11.7-16.9) L 06/17/19 06:48 Hct 29.8 % (35.4-49) L 06/17/19 06:48 MCV 96.6 fl (80-96) H 06/17/19 06:48 MCHC 34.3 g/dl (32.0-35.9) 06/17/19 06:48 RDW 13.5 % (11.9-15.9) 06/17/19 06:48 Plt Count 114 K/MM3 (134-434) L 06/17/19 06:48 MPV 9.1 fl (7.5-11.1) 06/17/19 06:48 CMP Sodium 140 mmol/L (136-145) 06/17/19 06:48 Potassium 4.1 mmol/L (3.5-5.1) 06/17/19 06:48 Chloride 109 mmol/L (98-107) H 06/17/19 06:48 Carbon Dioxide 26 mmol/L (21-32) 06/17/19 06:48 Anion Gap 5 MMOL/L (8-16) L 06/17/19 06:48 BUN 25.9 mg/dL (7-18) H 06/17/19 06:48 Creatinine 0.8 mg/dL (0.55-1.3) 06/17/19 06:48 Random Glucose 109 mg/dL (74-106) H 06/17/19 06:48 Calcium 8.4 mg/dL (8.5-10.1) L 06/17/19 06:48 Total Bilirubin 0.6 mg/dL (0.2-1) 06/17/19 06:48 AST 10 U/L (15-37) L 06/17/19 06:48 ALT 19 U/L (13-61) 06/17/19 06:48 Alkaline Phosphatase 63 U/L (45-117) 06/17/19 06:48 Total Protein 7.0 g/dl (6.4-8.2) 06/17/19 06:48 Albumin 2.6 g/dl (3.4-5.0) L 06/17/19 06:48 CARDIAC ENZYMES Creatine Kinase 65 U/L (26-308) 06/16/19 03:40 Troponin I 0.02 ng/ml (0.00-0.05) 06/16/19 03:40 Plan: 79y M, known to me from office visit with PMH of 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 Pt stated that on day prior to admission when he was driving he had sudden onset of vertigo with R sided facial pains which felt like pins and needles and felt the R side of his face twitching. He pulled over and stated the episode lasted for 5 minutes. Does not know if he lost consciousness but the episode resolved and he went home. On day of admission, pt stated he was walking outside, had sudden onset of vertigo and stated he was making a repetitive noise with his mouth and had a headache. Episode lasted a few minutes and resolved. Pt stated he did not lose consciousness but grabbed on to a side rail to prevent him from falling. He has not had symptoms like this before. He denied incontinence during these episodes. He denied tinnitus, headache, changes in vision, numbness/tingling, weakness, ataxia, head injuries, chest pain, sob, abdominal pain, n/v/d, recent illnesses, recent travel, recent surgeries. Denied use of drugs, alcohol. I was contacted by the emergency department evening of admission and advised Ct of head performed and showed a solitary 2.7x1.7x1.7 cm left frontal lobe hemorrhage is seen with mild surrounding edemaa-possible underlying neoplastic disease. Chronic sphenoid sinusitis. discussed with Dr. Karan Mccoy who also reviewed the images and felt lesion was suspicious for metastatic melanoma. neurosurgery note reviewed, Pt started on Keppra for seizure prophylaxis. Pt started on decadron 4mg QID for cranial edema. Discussed case with neurosurgeon , Dr. Karan Mccoy. Patient interested and radiation therapy after surgery. Completed sterotactic MRI 06/15 with surgical intervention on same date. Repeat head ct completed, previously seen lesion reduced in size to 1.5 X 1.4 cm from 2.1 X 1.9cm. NSGY note reviewed. Patient in ICU under critical care monitoring. No significant neurologic changes, remains awake, verbal, without new deficits. Remains on dexamethasone along with Keppra. Monitor blood pressure, maintain normotensive range. Radiation plan as per Onc, possibly in 1-2 weeks. Continued close monitoring while in ICU, possibly being downgraded to regular floor. Critical care time 35 mins.
--- NOTE | 2019-06-17 13:41 | PN ---
Physical Exam: SUBJECTIVE: Patient seen and examined at bedside. No events overnight. Patient complaining of constipation, which is typical for him when he is admitted. Last BM 06/15 OBJECTIVE: Vital Signs Period Temp Pulse Resp BP Sys/Giordano Pulse Ox Last 24 Hr 97.4 F 28-37 14-18 97-134/43-84 99-99 GENERAL: The patient is awake, alert, and fully oriented, in no acute distress. HEAD: surgical bandage in place; is clean, dry and intact EYES: PERRL, extraocular movements intact, sclera anicteric, conjunctiva clear. No ptosis. LUNGS: Breath sounds equal, clear to auscultation bilaterally, no wheezes, no crackles, no accessory muscle use. HEART: Regular rhythm, bradycardic, S1, S2 without murmur, rub or gallop. ABDOMEN: Soft, nontender, nondistended, normoactive bowel sounds, no guarding, no rebound, no hepatosplenomegaly, no masses. EXTREMITIES: 2+ pulses, warm, well-perfused, no edema. NEUROLOGICAL: Cranial nerves II through X grossly intact. Normal speech, gait not observed. Laboratory Results - last 24 hr 06/17/19 06/17/19 06:48 06:48 WBC 6.3 RBC 3.09 L Hgb 10.2 L Hct 29.8 L MCV 96.6 H MCH 33.1 MCHC 34.3 RDW 13.5 Plt Count 114 L MPV 9.1 Sodium 140 Potassium 4.1 Chloride 109 H Carbon Dioxide 26 Anion Gap 5 L BUN 25.9 H Creatinine 0.8 Est GFR (CKD-EPI)AfAm 99.87 Est GFR (CKD-EPI)NonAf 86.17 Random Glucose 109 H Calcium 8.4 L Phosphorus 3.5 Magnesium 2.4 Total Bilirubin 0.6 AST 10 L ALT 19 Alkaline Phosphatase 63 Total Protein 7.0 Albumin 2.6 L Active Medications Generic Name Dose Route Start Last Admin Trade Name Freq PRN Reason Stop Dose Admin Acetaminophen 650 mg 06/12/19 22:59 Tylenol - PO Q6H PRN PAIN 1-5 Acetaminophen/Codeine Phosphate 1 tab 06/15/19 16:00 Tylenol # 3 - PO Q4H PRN PAIN LEVEL 4 - 6 Dexamethasone 4 mg 06/16/19 14:00 06/17/19 09:21 Decadron - PO 4 mg QID [facility] Administration Docusate Sodium 100 mg 06/15/19 22:00 06/17/19 06:05 Colace - PO 100 mg TID [facility] Administration Levetiracetam 500 mg 06/16/19 22:00 06/17/19 09:21 Keppra - PO 500 mg BID [facility] Administration Morphine Sulfate 2 mg 06/15/19 16:02 Morphine Sulfate IVPUSH Q4H PRN PAIN LEVEL 7 - 10 Ondansetron HCl 4 mg 06/15/19 16:00 Zofran Injection IVPUSH Q6H PRN NAUSEA Ondansetron HCl 4 mg 06/15/19 16:22 Zofran Injection IVPUSH Q6H PRN NAUSEA AND/OR VOMITING Pantoprazole Sodium 40 mg 06/13/19 10:00 06/17/19 09:21 Protonix - PO 40 mg DAILY [facility] Administration Promethazine HCl 12.5 mg 06/15/19 16:22 Phenergan Injection - IVPUSH Q6H PRN NAUSEA-FOR RESCUE AFTER 15 MIN Senna 2 tab 06/17/19 22:00 Senna - PO HS PRN CONSTIPATION Tamsulosin HCl 0.4 mg 06/13/19 08:30 06/17/19 09:21 Flomax - PO 0.4 mg DAILY@0830 [facility] Administration ASSESSMENT/PLAN: Patient is a 79 year old male with PMH of 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 Mccoy. 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 Jerez): -c/w Dexamethasone, Keppra -Neurosurgery consulated (Dr. Mccoy): -c/w decadron (4mg q4h) for edema. -Pain management: acetaminophen 650mg q6h morphine 2mg q4h PRN, Tylenol #3 q4h PRN -Post-op nausea: promethazine 12.5mg q6h PRN -F/u Frozen Path -Seizure prophylaxis: Keprra 500mg BID -Per neurosurg: stable for transfer to med/surg (8W) Cardiovascular -Baseline bradycardia w/ mobitz 1 block- per patient and cardio has been worked up extensively in the past. -Pt hemodynamically stable -Cardio (Dr. Robledo) consulted -Sinus bradycardia and morbitz type I AV block -Do not treat unless hemodynamically unstable or symptomatic -If antihypertensive therapy initiation is required avoid sinus node and AV nasir blocking agents -Obtain Holter monitor for further evaluation of the above noted yesy- arrhythmia -Per cardiology, patient should remain on telemetry after being transferred out of the ICU Pulmonary -LLL segmentectomy -No respiratory distress -At-risk of post-op atelectasis -Incentive spirometry Q1H GI -At risk-of steroid associated ulcers -PPI ppx Renal -Chronic BPH -Cont home tamsulosin 0.4mg daily Heme -Brain Ca -- likely 2/2 melanoma mets -MedOnc following (Dr. Gibbons) -RadOnc following (Dr. Mehta) --possible post-op SRS/RT vs SRS FEN -D/c fluids -Advance to regular diet PPX -GI: protonix 40mg IVP QD -SCDs d/t recent hemorrhagic brain Ca Dispo: -stable for tranfer to med/surg per CCM and neurosurgery. -Per cardiology, patient should remain on telemetry after being transferred out of the ICU Visit type - Emergency Visit Emergency Visit: Yes ED Registration Date: 06/12/19 Care time: The patient presented to the Emergency Department on the above date and was hospitalized for further evaluation of their emergent condition. - New Patient This patient is new to me today: Yes Date on this admission: 06/17/19 - Critical Care Critical Care patient: Yes Total Critical Care Time (in minutes): 42 Critical Care Statement: The care of this patient involved high complexity decision making to prevent further life threatening deterioration of the patient 's condition and/or to evaluate & treat vital organ system(s) failure or risk of failure. ATTENDING PHYSICIAN STATEMENT I saw and evaluated the patient. I reviewed the resident's note and discussed the case with the resident. I agree with the resident's findings and plan as documented. SUBJECTIVE: OBJECTIVE: ASSESSMENT AND PLAN:
[2019-06-17] MEDS ORDERED: MORPHINE SULFATE 2 MG/ML VIAL IVPUSH PRN (18:21)
[2019-06-17] MEDS ORDERED: PROMETHAZINE HCL 25 MG/1 ML VIAL IVPUSH PRN (18:21)
[2019-06-17] MEDS ORDERED: ONDANSETRON 4 MG/2 ML VIAL IVPUSH PRN ×2 (18:21)
[2019-06-17] MEDS ORDERED: ACETAMINOPHEN 325 MG TABLET (FP) PO PRN (18:21)
[2019-06-17] MEDS ORDERED: ACETAMINOPHEN WITH CODEINE 300MG/30MG TABLET PO PRN (18:21)
[2019-06-17] MEDS: SENNOSIDES 8.6MG TABLET (FP) PO PRN (21:26)
[2019-06-17] MEDS ORDERED: SENNOSIDES 8.6MG TABLET (FP) PO PRN (22:00)
[2019-06-18] MEDS: DOCUSATE SODIUM 100 MG CAPSULE (FP) PO SCH ×3 (06:02→21:15)
[2019-06-18 06:37] LABS: HEMATOCRIT 31.2 % (35.4-49); HEMOGLOBIN 10.8 GM/dL (11.7-16.9); MCH 33.4 pg (25.7-33.7); MCHC 34.7 g/dl (32.0-35.9); MEAN CELL VOLUME 96.2 fl (80-96); MEAN PLT VOLUME 9.2 fl (7.5-11.1); PLATELET COUNT 113 K/MM3 (134-434); RBC 3.24 M/mm3 (4.00-5.60); RDW 13.8 % (11.9-15.9); WHITE BLOOD COUNT 10.7 K/mm3 (4.0-10.0)
[2019-06-18 07:12] LABS: BLOOD UREA NITROGEN 24.6 mg/dL (7-18); CALCIUM 8.7 mg/dL (8.5-10.1); CREATININE 0.8 mg/dL (0.55-1.3); POTASSIUM 3.9 mmol/L (3.5-5.1)
--- NOTE | 2019-06-18 07:45 | PN ---
Progress Note (short form) - Note Progress Note: Coverage for Dr. Jaycob Rai Chief Complaint: Events noted, notes reviewed, awake and alert, denies any chest pain or dyspnea, asymptomatic bradycardia persists- Holter monitor in progress History of Present Illness: Seen and examined on telemetry. Events noted, notes reviewed, awake and alert, denies any chest pain or dyspnea, asymptomatic bradycardia persists- Holter monitor in progress As noted rhythm review revealed the above noted sinus bradycardia with 1st degree AVB, Mobitz I AVB no evidence of advanced AV block or significant pauses - no indications for intervention Medications: Current Medications Acetaminophen (Tylenol -) 650 mg PO Q6H PRN PRN Reason: PAIN 1-5 Acetaminophen/Codeine Phosphate (Tylenol # 3 -) 1 tab PO Q4H PRN PRN Reason: PAIN LEVEL 4 - 6 Dexamethasone (Decadron -) 4 mg PO QID [facility] Last Admin: 06/17/19 21:23 Dose: 4 mg Docusate Sodium (Colace -) 100 mg PO TID [facility] Last Admin: 06/18/19 06:02 Dose: 100 mg Levetiracetam (Keppra -) 500 mg PO BID [facility] Last Admin: 06/17/19 21:24 Dose: 500 mg Morphine Sulfate (Morphine Sulfate) 2 mg IVPUSH Q4H PRN PRN Reason: PAIN LEVEL 7 - 10 Ondansetron HCl (Zofran Injection) 4 mg IVPUSH Q6H PRN PRN Reason: NAUSEA Pantoprazole Sodium (Protonix -) 40 mg PO DAILY [facility] Senna (Senna -) 2 tab PO HS PRN PRN Reason: CONSTIPATION Last Admin: 06/17/19 21:26 Dose: 2 tab Tamsulosin HCl (Flomax -) 0.4 mg PO DAILY@0830 [facility] Review of Systems - Review of Systems Constitutional: denies: Chills, Fever Cardiovascular: As noted above Respiratory: denies: Cough or Sputum Production Gastrointestinal: denies: Nausea, Vomiting, Diarrhea, Constipation, Abdominal Pain Vital Signs: Last Vital Signs Temp Pulse Resp BP Pulse Ox 98.2 F 48 L 18 136/74 98 06/18/19 06:00 06/18/19 06:00 06/18/19 06:00 06/18/19 06:00 06/17/19 21:00 Intake & Output 06/15/19 06/16/19 06/17/19 06/18/19 23:59 23:59 23:59 23:59 Intake Total 1600 1563 560 250 Output Total 1950 5081 216 4216 Balance -350 -237 -140 -1350 Weight 167 lb 5.999 oz 161 lb 3.2 oz Neck: Supple Negative JVD No Bruit Respiratory: Diminished breath sounds at the bases bilaterally Cardiovascular: S1 S2 Regular Rate and Rhythm Gastrointestinal: Soft Benign Normal Bowel Sounds Ext: Negative Edema Labs: CBC, BMP 06/18/19 05:23 06/18/19 05:23 Hepatic Panel Total Bilirubin 0.6 mg/dL (0.2-1) 06/17/19 06:48 AST 10 U/L (15-37) L 06/17/19 06:48 ALT 19 U/L (13-61) 06/17/19 06:48 Alkaline Phosphatase 63 U/L (45-117) 06/17/19 06:48 Albumin 2.6 g/dl (3.4-5.0) L 06/17/19 06:48 INR, PTT INR 1.11 (0.83-1.09) H 06/14/19 10:26 Assessment/Plan ASSESSMENT: 1. Sinus bradycardia with 1st degree AVB, Mobitz I AVB no evidence of advanced AV block or significant pauses, asymptomatic 2. HTN 3. Left frontal hemorrhagic tumor post left fronto-parietal craniotomy, stereotactic navigation, resection of tumor, microdissection and cranial plating system in a patient with, 4. Metastatic malignant melanoma, lung mets 5. Seizures 6. Pre- renal azotemia 7. Anemia/thrombocytopenia PLAN: 1. As outlined above no intervention is indicated for the above noted asymptomatic sinus bradycardia with 1st degree AVB, Mobitz I AVB 2. If antihypertensive therapy initiation is required avoid sinus node and AV nasir blocking agents 3. Anti-seizure therapy as per the primary team 4. Await Holter monitor for further evaluation of the above noted yesy- arrhythmia Alysa Robledo M.D.
[2019-06-18] MEDS ORDERED: PT OWN MED DRAWER 7, Y5N ONE (08:19)
[2019-06-18] MEDS: TAMSULOSIN HCL 0.4 MG CAP PO SCH (08:29)
--- NOTE | 2019-06-18 08:29 | PN ---
Progress Note (short form) - Note Progress Note: NEUROSURGERY POD #3 In tele No headache, N/V, Sz. Cardiology input noted PE: AF, VSS, IA 30's; O2 sat 100% HEENT- Stockingnet and 4x[address], incision C/D/I; Neck- supple; Cor- RR; Lungs- CTA B; Abd- benign, + BS; Ext- no sign of DVT CN- intact II-XII, face symmetric; Motor- 5/5 without drift; Sensation- intact LT; DTR- 1+/hyporeflexic Frozen- probable melanoma F/u Head CT - surgical bed blood/air/packing material Probable solitary hemorrhagic L frontal metastatic melanoma with edema, final path pending Decadron for edema, changed to po; decrease to 4 mg bid by discharge and continue through RT Keppra for sz prophylaxis, changed to po 500 mg and continue On reg diet Outpatient visit in ~7 days for suture removal Adjuvant RT when sutures out and incision healed
[2019-06-18] MEDS: SENNOSIDES 8.6MG TABLET (FP) PO PRN (08:49)
[2019-06-18] MEDS: PANTOPRAZOLE 40 MG TABLET PO SCH (09:09)
[2019-06-18] MEDS: DEXAMETHASONE 4 MG TABLET (FP) PO SCH ×4 (09:09→21:13)
[2019-06-18] MEDS: levETIRAcetam 500 MG TABLET (FP) PO SCH ×2 (09:09→21:15)
--- NOTE | 2019-06-18 11:02 | PN ---
Progress Note (short form) - Note Progress Note: Neurology History of Present Illness - General Chief Complaint: Lightheaded History Source: Patient Exam Limitations: No Limitations PCP: Dr. 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 Pt stated that on day prior to admission when he was driving he had sudden onset of vertigo with R sided facial pains which felt like pins and needles and felt the R side of his face twitching. He pulled over and stated the episode lasted for 5 minutes. Does not know if he lost consciousness but the episode resolved and he went home. On day of admission, pt stated he was walking outside, had sudden onset of vertigo and stated he was making a repetitive noise with his mouth and had a headache. Episode lasted a few minutes and resolved. Pt stated he did not lose consciousness but grabbed on to a side rail to prevent him from falling. He has not had symptoms like this before. He denied incontinence during these episodes. He denied tinnitus, headache, changes in vision, numbness/tingling, weakness, ataxia, head injuries, chest pain, sob, abdominal pain, n/v/d, recent illnesses, recent travel, recent surgeries. Denied use of drugs, alcohol. I was contacted by the emergency department evening of admission and advised Ct of head performed and showed a solitary 2.7x1.7x1.7 cm left frontal lobe hemorrhage is seen with mild surrounding edema-possible underlying neoplastic disease. Chronic sphenoid sinusitis. discussed with Dr. Karan Mccoy who also reviewed the images and felt lesion was suspicious for metastatic melanoma. neurosurgery note reviewed, Pt started on Keppra for seizure prophylaxis. Pt started on decadron 4mg QID for cranial edema. Discussed case with neurosurgeon , Dr. Karan Mccoy. Patient interested and radiation therapy after surgery. Completed sterotactic MRI 06/15 with surgical intervention on same date. Repeat head ct completed, previously seen lesion reduced in size to 1.5 X 1.4 cm from 2.1 X 1.9cm. NSGY note reviewed. patient downgraded to floor status, likely have sutures removed approximately 1 week and radiation therapy thereafter, per neurosurgery note. Active Medications Acetaminophen (Tylenol -) 650 mg PO Q6H PRN PRN Reason: PAIN 1-5 Acetaminophen/Codeine Phosphate (Tylenol # 3 -) 1 tab PO Q4H PRN PRN Reason: PAIN LEVEL 4 - 6 Dexamethasone (Decadron -) 4 mg PO QID [facility] Last Admin: 06/18/19 09:09 Dose: 4 mg Docusate Sodium (Colace -) 100 mg PO TID [facility] Last Admin: 06/18/19 06:02 Dose: 100 mg Levetiracetam (Keppra -) 500 mg PO BID [facility] Last Admin: 06/18/19 09:09 Dose: 500 mg Morphine Sulfate (Morphine Sulfate) 2 mg IVPUSH Q4H PRN PRN Reason: PAIN LEVEL 7 - 10 Ondansetron HCl (Zofran Injection) 4 mg IVPUSH Q6H PRN PRN Reason: NAUSEA Pantoprazole Sodium (Protonix -) 40 mg PO DAILY [facility] Last Admin: 06/18/19 09:09 Dose: 40 mg Senna (Senna -) 2 tab PO HS PRN PRN Reason: CONSTIPATION Last Admin: 06/18/19 08:49 Dose: 2 tab Tamsulosin HCl (Flomax -) 0.4 mg PO DAILY@0830 [facility] Last Admin: 06/18/19 08:29 Dose: 0.4 mg *Physical Exam Vital Signs Period Temp Pulse Resp BP Sys/Giordano Pulse Ox Last 24 Hr 98.2 F-98.6 F 34-49 16-19 104-139/50-77 98 - Physical Exam General Appearance: Yes: Nourished, Appropriately Dressed, Thin. No: Apparent Distress HEENT: positive: EOMI, BARBRA, Normal ENT Inspection, TMs Normal, Pharynx Normal. negative: Scleral Icterus (R), Scleral Icterus (L) Neck: positive: Trachea midline, Supple. negative: Carotid bruit, Lymphadenopathy (R), Lymphadenopathy (L) Respiratory/Chest: positive: Lungs Clear, Normal Breath Sounds. negative: Crackles, Rales, Rhonchi, Stridor, Wheezing Cardiovascular: positive: Regular Rhythm, Regular Rate, S1, S2. negative: Edema , JVD, Murmur Vascular Pulses: Dorsalis-Pedis (R): 2+, Doralis-Pedis (L): 2+ Gastrointestinal/Abdominal: positive: Normal Bowel Sounds, Soft. negative: Tender Musculoskeletal: positive: Normal Inspection. negative: CVA Tenderness Extremity: positive: Normal Capillary Refill. negative: Pedal Edema, Swelling, Calf Tenderness Integumentary: positive: Normal Color, Dry, Warm Neurologic: positive: director of psychiatry II-XII NML intact, Fully Oriented, Alert, Normal Mood/ Affect, Normal Response, Motor Strength 5/5, Finger to Nose. negative: Facial Droop, Numbness, Sensory Deficit, Confused, Disoriented CBCD WBC 10.7 K/mm3 (4.0-10.0) H 06/18/19 05:23 RBC 3.24 M/mm3 (4.00-5.60) L 06/18/19 05:23 Hgb 10.8 GM/dL (11.7-16.9) L 06/18/19 05:23 Hct 31.2 % (35.4-49) L 06/18/19 05:23 MCV 96.2 fl (80-96) H 06/18/19 05:23 MCHC 34.7 g/dl (32.0-35.9) 06/18/19 05:23 RDW 13.8 % (11.9-15.9) 06/18/19 05:23 Plt Count 113 K/MM3 (134-434) L 06/18/19 05:23 MPV 9.2 fl (7.5-11.1) 06/18/19 05:23 CMP Sodium 140 mmol/L (136-145) 06/18/19 05:23 Potassium 3.9 mmol/L (3.5-5.1) 06/18/19 05:23 Chloride 108 mmol/L (98-107) H 06/18/19 05:23 Carbon Dioxide 28 mmol/L (21-32) 06/18/19 05:23 Anion Gap 4 MMOL/L (8-16) L 06/18/19 05:23 BUN 24.6 mg/dL (7-18) H 06/18/19 05:23 Creatinine 0.8 mg/dL (0.55-1.3) 06/18/19 05:23 Random Glucose 106 mg/dL (74-106) 06/18/19 05:23 Calcium 8.7 mg/dL (8.5-10.1) 06/18/19 05:23 Total Bilirubin 0.6 mg/dL (0.2-1) 06/17/19 06:48 AST 10 U/L (15-37) L 06/17/19 06:48 ALT 19 U/L (13-61) 06/17/19 06:48 Alkaline Phosphatase 63 U/L (45-117) 06/17/19 06:48 Total Protein 7.0 g/dl (6.4-8.2) 06/17/19 06:48 Albumin 2.6 g/dl (3.4-5.0) L 06/17/19 06:48 CARDIAC ENZYMES Creatine Kinase 65 U/L (26-308) 06/16/19 03:40 Troponin I 0.02 ng/ml (0.00-0.05) 06/16/19 03:40 Plan: 79y M, known to me from office visit with PMH of 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 Pt stated that on day prior to admission when he was driving he had sudden onset of vertigo with R sided facial pains which felt like pins and needles and felt the R side of his face twitching. He pulled over and stated the episode lasted for 5 minutes. Does not know if he lost consciousness but the episode resolved and he went home. On day of admission, pt stated he was walking outside, had sudden onset of vertigo and stated he was making a repetitive noise with his mouth and had a headache. Episode lasted a few minutes and resolved. Pt stated he did not lose consciousness but grabbed on to a side rail to prevent him from falling. He has not had symptoms like this before. He denied incontinence during these episodes. He denied tinnitus, headache, changes in vision, numbness/tingling, weakness, ataxia, head injuries, chest pain, sob, abdominal pain, n/v/d, recent illnesses, recent travel, recent surgeries. Denied use of drugs, alcohol. I was contacted by the emergency department evening of admission and advised Ct of head performed and showed a solitary 2.7x1.7x1.7 cm left frontal lobe hemorrhage is seen with mild surrounding edemaa-possible underlying neoplastic disease. Chronic sphenoid sinusitis. discussed with Dr. Karan Mccoy who also reviewed the images and felt lesion was suspicious for metastatic melanoma. neurosurgery note reviewed, Pt started on Keppra for seizure prophylaxis. Pt started on decadron 4mg QID for cranial edema. Discussed case with neurosurgeon , Dr. Karan Mccoy. Patient interested and radiation therapy after surgery. Completed sterotactic MRI 06/15 with surgical intervention on same date. Repeat head ct completed, previously seen lesion reduced in size to 1.5 X 1.4 cm from 2.1 X 1.9cm. NSGY note reviewed. patient downgraded to floor status, likely have sutures removed approximately 1 week and radiation therapy thereafter, per neurosurgery note. Remains on dexamethasone along with Keppra. Monitor blood pressure, maintain normotensive range.
--- NOTE | 2019-06-18 11:39 | PN ---
Progress Note (short form) - Note Progress Note: Patient seen and examined S/p craniotomy for removal of a single solitary met- likely melanoma Recovering post op Last Vital Signs Temp Pulse Resp BP Pulse Ox 98.2 F 49 L 18 109/61 98 06/18/19 08:46 06/18/19 08:46 06/18/19 08:46 06/18/19 08:46 06/17/19 21:00 HEENT: ELIZABETH, EOM Intact Oropharynx: No thrush, No mucositis Cor: RSR, No murmurs, No gallops Lungs: Clear to P&A Abd: Soft, Normal bowel sounds, No organomegaly Ext:No significant edema Skin: No rashes, Integument intact Motor intact CBC, BMP 06/18/19 05:23 06/18/19 05:23 Current Medications Generic Name Dose Route Start Last Admin Trade Name Freq PRN Reason Stop Dose Admin Acetaminophen 650 mg 06/17/19 18:21 Tylenol - PO Q6H PRN PAIN 1-5 Acetaminophen/Codeine Phosphate 1 tab 06/17/19 18:21 Tylenol # 3 - PO Q4H PRN PAIN LEVEL 4 - 6 Dexamethasone 4 mg 06/17/19 22:00 06/18/19 09:09 Decadron - PO 4 mg QID [facility] Administration Docusate Sodium 100 mg 06/17/19 22:00 06/18/19 06:02 Colace - PO 100 mg TID [facility] Administration Levetiracetam 500 mg 06/17/19 22:00 06/18/19 09:09 Keppra - PO 500 mg BID [facility] Administration Morphine Sulfate 2 mg 06/17/19 18:21 Morphine Sulfate IVPUSH Q4H PRN PAIN LEVEL 7 - 10 Ondansetron HCl 4 mg 06/17/19 18:21 Zofran Injection IVPUSH Q6H PRN NAUSEA Pantoprazole Sodium 40 mg 06/18/19 10:00 06/18/19 09:09 Protonix - PO 40 mg DAILY [facility] Administration Senna 2 tab 06/17/19 22:00 06/18/19 08:49 Senna - PO 2 tab HS PRN Administration CONSTIPATION Tamsulosin HCl 0.4 mg 06/18/19 08:30 06/18/19 08:29 Flomax - PO 0.4 mg DAILY@0830 [facility] Administration Impression: S/P left froto-parietal craniotomy with resection for likely metastatic melanoma Melanoma- in -situ by history Leftlung resection for melanoma Dysproteinemia Plan: Post-op per NS RT in future Re- image for metastatic disease Further recommendations based upon above.
--- NOTE | 2019-06-18 14:21 | PN ---
Progress Note, Physician History of Present Illness: Pt w/o weakness or tingling in the face, UE, LE. Pt w/o SOB, CP, palpitation, abd pain, N, V. - Current Medication List Current Medications: Active Medications Acetaminophen (Tylenol -) 650 mg PO Q6H PRN PRN Reason: PAIN 1-5 Acetaminophen/Codeine Phosphate (Tylenol # 3 -) 1 tab PO Q4H PRN PRN Reason: PAIN LEVEL 4 - 6 Dexamethasone (Decadron -) 4 mg PO QID [facility] Last Admin: 06/18/19 09:09 Dose: 4 mg Docusate Sodium (Colace -) 100 mg PO TID [facility] Last Admin: 06/18/19 06:02 Dose: 100 mg Levetiracetam (Keppra -) 500 mg PO BID [facility] Last Admin: 06/18/19 09:09 Dose: 500 mg Morphine Sulfate (Morphine Sulfate) 2 mg IVPUSH Q4H PRN PRN Reason: PAIN LEVEL 7 - 10 Ondansetron HCl (Zofran Injection) 4 mg IVPUSH Q6H PRN PRN Reason: NAUSEA Pantoprazole Sodium (Protonix -) 40 mg PO DAILY [facility] Last Admin: 06/18/19 09:09 Dose: 40 mg Senna (Senna -) 2 tab PO HS PRN PRN Reason: CONSTIPATION Last Admin: 06/18/19 08:49 Dose: 2 tab Tamsulosin HCl (Flomax -) 0.4 mg PO DAILY@0830 [facility] Last Admin: 06/18/19 08:29 Dose: 0.4 mg - Objective Vital Signs: Vital Signs Temperature 98.2 F 06/18/19 08:46 Pulse Rate 49 L 06/18/19 08:46 Respiratory Rate 18 06/18/19 09:00 Blood Pressure 109/61 06/18/19 08:46 O2 Sat by Pulse Oximetry (%) 98 06/18/19 09:00 Constitutional: Yes: No Distress, Calm Cardiovascular: Yes: Regular Rate and Rhythm, S1, S2 Respiratory: Yes: Regular, CTA Bilaterally. No: Rales Gastrointestinal: Yes: Normal Bowel Sounds, Soft. No: Palpable Mass Edema: No Neurological: Yes: Alert, Oriented, Other (symmetric examination in UE, LE, face ) Psychiatric: Yes: Alert, Oriented Labs: CBC, BMP 06/18/19 05:23 02/17/20 05:23 INR, PTT INR 1.11 (0.83-1.09) H 06/14/19 10:26 Problem List - Problems (1) Intracranial hemorrhage Code(s): I62.9 - NONTRAUMATIC INTRACRANIAL HEMORRHAGE, UNSPECIFIED (2) History of melanoma Code(s): Z85.820 - PERSONAL HISTORY OF MALIGNANT MELANOMA OF SKIN (3) Melanoma metastatic to left lung Code(s): C78.02 - SECONDARY MALIGNANT NEOPLASM OF LEFT LUNG (4) Headache Code(s): R51 - HEADACHE Qualifiers: Headache type: unspecified Headache chronicity pattern: acute headache Intractability: intractable Qualified Code(s): R51 - Headache (5) LOC (loss of consciousness) Code(s): R40.20 - UNSPECIFIED COMA (6) HTN (hypertension) Code(s): I10 - ESSENTIAL (PRIMARY) HYPERTENSION (7) BPH (benign prostatic hyperplasia) Code(s): N40.0 - BENIGN PROSTATIC HYPERPLASIA WITHOUT LOWER URINRY TRACT SYMP (8) Brain mass Code(s): G93.89 - OTHER SPECIFIED DISORDERS OF BRAIN Assessment/Plan Admitted to monitor bed Neuro, Neuro Sx, Onco consults are appreciated s/p craniotomy and brain mass excision Keppra for Seizure prophylaxis Steroids for brain edema. To f/u pathology report. AM labs. Pt's condition was reviewed with his nurse.
[2019-06-19] MEDS: DOCUSATE SODIUM 100 MG CAPSULE (FP) PO SCH ×3 (05:47→23:37)
--- NOTE | 2019-06-19 05:56 | PN ---
Progress Note, Physician Chief Complaint: no new c/o; to start PT rehab for ambulation and stairs - Current Medication List Current Medications: Active Medications Acetaminophen (Tylenol -) 650 mg PO Q6H PRN PRN Reason: PAIN 1-5 Acetaminophen/Codeine Phosphate (Tylenol # 3 -) 1 tab PO Q4H PRN PRN Reason: PAIN LEVEL 4 - 6 Dexamethasone (Decadron -) 4 mg PO QID [facility] Last Admin: 06/18/19 21:13 Dose: 4 mg Docusate Sodium (Colace -) 100 mg PO TID [facility] Last Admin: 06/19/19 05:47 Dose: 100 mg Levetiracetam (Keppra -) 500 mg PO BID [facility] Last Admin: 06/18/19 21:15 Dose: 500 mg Morphine Sulfate (Morphine Sulfate) 2 mg IVPUSH Q4H PRN PRN Reason: PAIN LEVEL 7 - 10 Ondansetron HCl (Zofran Injection) 4 mg IVPUSH Q6H PRN PRN Reason: NAUSEA Pantoprazole Sodium (Protonix -) 40 mg PO DAILY [facility] Last Admin: 06/18/19 09:09 Dose: 40 mg Senna (Senna -) 2 tab PO HS PRN PRN Reason: CONSTIPATION Last Admin: 06/18/19 08:49 Dose: 2 tab Tamsulosin HCl (Flomax -) 0.4 mg PO DAILY@0830 [facility] Last Admin: 06/18/19 08:29 Dose: 0.4 mg - Objective Vital Signs: Vital Signs Temperature 98.2 F 06/19/19 02:00 Pulse Rate 49 L 06/19/19 02:00 Respiratory Rate 18 06/19/19 02:00 Blood Pressure 109/59 L 06/19/19 02:00 O2 Sat by Pulse Oximetry (%) 98 06/18/19 09:00 Constitutional: Yes: No Distress Eyes: Yes: Conjunctiva Clear HENT: Yes: Atraumatic Neck: Yes: Supple Cardiovascular: Yes: Regular Rate and Rhythm Respiratory: Yes: CTA Bilaterally Gastrointestinal: Yes: Soft. No: Tenderness Genitourinary: No: Hematuria Musculoskeletal: No: Joint Stiffness, Joint Swelling Extremities: No: Cold, Cool Edema: No Integumentary: No: Rash, Venous Stasis Changes Neurological: Yes: Alert, Oriented ...Motor Strength: WNL Psychiatric: Yes: Alert, Oriented. 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 s/p L frontal mass excision, path pending po steroids; po keppra Neurology and NS f/u; cardiology f/u ONC; radiation f/u d/w pt and staff -
[2019-06-19 06:56] LABS: HEMATOCRIT 31.7 % (35.4-49); HEMOGLOBIN 10.8 GM/dL (11.7-16.9); MCH 32.7 pg (25.7-33.7); MCHC 34.1 g/dl (32.0-35.9); MEAN PLT VOLUME 8.8 fl (7.5-11.1); PLATELET COUNT 126 K/MM3 (134-434); RDW 13.9 % (11.9-15.9); WHITE BLOOD COUNT 13.4 K/mm3 (4.0-10.0)
[2019-06-19 07:14] LABS: ALBUMIN 2.6 g/dl (3.4-5.0); BILIRUBIN,TOTAL 0.7 mg/dL (0.2-1); BLOOD UREA NITROGEN 25.1 mg/dL (7-18); CALCIUM 8.4 mg/dL (8.5-10.1); CREATININE 0.8 mg/dL (0.55-1.3); POTASSIUM 4.1 mmol/L (3.5-5.1); TOT PROT 7.4 g/dl (6.4-8.2)
[2019-06-19] MEDS: TAMSULOSIN HCL 0.4 MG CAP PO SCH (08:02)
[2019-06-19] MEDS: DEXAMETHASONE 4 MG TABLET (FP) PO SCH ×4 (08:04→23:37)
--- NOTE | 2019-06-19 08:28 | PN ---
Progress Note (short form) - Note Progress Note: NEUROSURGERY POD #4 In tele No headache, N/V, Sz. Ambulating independently PE: Tmax 99.4, AF, VSS, NE 30's; O2 sat 100% HEENT- Stockingnet and 4x4 [address], incision C/D/I; Neck- supple; Cor- RR; Lungs- CTA B; Abd- benign, + BS; Ext- no sign of DVT CN- intact II-XII, face symmetric; Motor- 5/5 without drift; Sensation- intact LT; DTR- 1+/hyporeflexic F/u Head CT - surgical bed blood/air/packing material Probable solitary hemorrhagic L frontal metastatic melanoma with edema, final path pending Decadron for edema, changed to po; decrease to 4 mg bid and continue through RT Keppra 500 mg bid Tolerating reg diet Outpatient visit in ~7 days for suture removal May leave head wrap off to air dry or apply 4x4 and stockingnette Keep incision dry x 1 week Adjuvant RT when sutures out and incision healed
--- NOTE | 2019-06-19 08:41 | PN ---
Progress Note (short form) - Note Progress Note: Neurology History of Present Illness - General Chief Complaint: Lightheaded History Source: Patient Exam Limitations: No Limitations PCP: Dr. 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 Pt stated that on day prior to admission when he was driving he had sudden onset of vertigo with R sided facial pains which felt like pins and needles and felt the R side of his face twitching. He pulled over and stated the episode lasted for 5 minutes. Does not know if he lost consciousness but the episode resolved and he went home. On day of admission, pt stated he was walking outside, had sudden onset of vertigo and stated he was making a repetitive noise with his mouth and had a headache. Episode lasted a few minutes and resolved. Pt stated he did not lose consciousness but grabbed on to a side rail to prevent him from falling. He has not had symptoms like this before. He denied incontinence during these episodes. He denied tinnitus, headache, changes in vision, numbness/tingling, weakness, ataxia, head injuries, chest pain, sob, abdominal pain, n/v/d, recent illnesses, recent travel, recent surgeries. Denied use of drugs, alcohol. I was contacted by the emergency department evening of admission and advised Ct of head performed and showed a solitary 2.7x1.7x1.7 cm left frontal lobe hemorrhage is seen with mild surrounding edema-possible underlying neoplastic disease. Chronic sphenoid sinusitis. discussed with Dr. Karan Mccoy who also reviewed the images and felt lesion was suspicious for metastatic melanoma. neurosurgery note reviewed, Pt started on Keppra for seizure prophylaxis. Pt started on decadron 4mg QID for cranial edema. Discussed case with neurosurgeon , Dr. Karan Mccoy. Patient interested and radiation therapy after surgery. Completed sterotactic MRI 06/15 with surgical intervention on same date. Repeat head ct completed, previously seen lesion reduced in size to 1.5 X 1.4 cm from 2.1 X 1.9cm. NSGY note reviewed. patient downgraded to floor status, likely have sutures removed approximately 1 week and radiation therapy thereafter, per neurosurgery note. Patient in good spirits and without new neurologic complaints or deficits, neurosurgery note reviewed. Active Medications Acetaminophen (Tylenol -) 650 mg PO Q6H PRN PRN Reason: PAIN 1-5 Acetaminophen/Codeine Phosphate (Tylenol # 3 -) 1 tab PO Q4H PRN PRN Reason: PAIN LEVEL 4 - 6 Dexamethasone (Decadron -) 4 mg PO TID [facility] Docusate Sodium (Colace -) 100 mg PO TID [facility] Last Admin: 06/19/19 05:47 Dose: 100 mg Levetiracetam (Keppra -) 500 mg PO BID [facility] Last Admin: 06/18/19 21:15 Dose: 500 mg Morphine Sulfate (Morphine Sulfate) 2 mg IVPUSH Q4H PRN PRN Reason: PAIN LEVEL 7 - 10 Ondansetron HCl (Zofran Injection) 4 mg IVPUSH Q6H PRN PRN Reason: NAUSEA Pantoprazole Sodium (Protonix -) 40 mg PO DAILY [facility] Last Admin: 06/18/19 09:09 Dose: 40 mg Senna (Senna -) 2 tab PO HS PRN PRN Reason: CONSTIPATION Last Admin: 06/18/19 08:49 Dose: 2 tab Tamsulosin HCl (Flomax -) 0.4 mg PO DAILY@0830 [facility] Last Admin: 06/19/19 08:02 Dose: 0.4 mg *Physical Exam Vital Signs Period Temp Pulse Resp BP Sys/Giordano Pulse Ox Last 24 Hr 97.9 F-99.4 F 46-58 18-20 109-149/52-79 98 - Physical Exam General Appearance: Yes: Nourished, Appropriately Dressed, Thin. No: Apparent Distress HEENT: positive: EOMI, BARBRA, Normal ENT Inspection, TMs Normal, Pharynx Normal. negative: Scleral Icterus (R), Scleral Icterus (L) Neck: positive: Trachea midline, Supple. negative: Carotid bruit, Lymphadenopathy (R), Lymphadenopathy (L) Respiratory/Chest: positive: Lungs Clear, Normal Breath Sounds. negative: Crackles, Rales, Rhonchi, Stridor, Wheezing Cardiovascular: positive: Regular Rhythm, Regular Rate, S1, S2. negative: Edema , JVD, Murmur Vascular Pulses: Dorsalis-Pedis (R): 2+, Doralis-Pedis (L): 2+ Gastrointestinal/Abdominal: positive: Normal Bowel Sounds, Soft. negative: Tender Musculoskeletal: positive: Normal Inspection. negative: CVA Tenderness Extremity: positive: Normal Capillary Refill. negative: Pedal Edema, Swelling, Calf Tenderness Integumentary: positive: Normal Color, Dry, Warm Neurologic: positive: powder room attendant II-XII NML intact, Fully Oriented, Alert, Normal Mood/ Affect, Normal Response, Motor Strength 5/5, Finger to Nose. negative: Facial Droop, Numbness, Sensory Deficit, Confused, Disoriented CBCD WBC 13.4 K/mm3 (4.0-10.0) H 06/19/19 05:25 RBC 3.30 M/mm3 (4.00-5.60) L 06/19/19 05:25 Hgb 10.8 GM/dL (11.7-16.9) L 06/19/19 05:25 Hct 31.7 % (35.4-49) L 06/19/19 05:25 MCV 96.0 fl (80-96) 06/19/19 05:25 MCHC 34.1 g/dl (32.0-35.9) 06/19/19 05:25 RDW 13.9 % (11.9-15.9) 06/19/19 05:25 Plt Count 126 K/MM3 (134-434) L 06/19/19 05:25 MPV 8.8 fl (7.5-11.1) 06/19/19 05:25 CMP Sodium 138 mmol/L (136-145) 06/19/19 05:25 Potassium 4.1 mmol/L (3.5-5.1) 06/19/19 05:25 Chloride 105 mmol/L (98-107) 06/19/19 05:25 Carbon Dioxide 25 mmol/L (21-32) 06/19/19 05:25 Anion Gap 8 MMOL/L (8-16) 06/19/19 05:25 BUN 25.1 mg/dL (7-18) H 06/19/19 05:25 Creatinine 0.8 mg/dL (0.55-1.3) 06/19/19 05:25 Random Glucose 107 mg/dL (74-106) H 06/19/19 05:25 Calcium 8.4 mg/dL (8.5-10.1) L 06/19/19 05:25 Total Bilirubin 0.7 mg/dL (0.2-1) 06/19/19 05:25 AST 15 U/L (15-37) 06/19/19 05:25 ALT 39 U/L (13-61) 06/19/19 05:25 Alkaline Phosphatase 75 U/L (45-117) 06/19/19 05:25 Total Protein 7.4 g/dl (6.4-8.2) 06/19/19 05:25 Albumin 2.6 g/dl (3.4-5.0) L 06/19/19 05:25 CARDIAC ENZYMES Creatine Kinase 65 U/L (26-308) 06/16/19 03:40 Troponin I 0.02 ng/ml (0.00-0.05) 06/16/19 03:40 Plan: 79y M, known to me from office visit with PMH of 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 Pt stated that on day prior to admission when he was driving he had sudden onset of vertigo with R sided facial pains which felt like pins and needles and felt the R side of his face twitching. He pulled over and stated the episode lasted for 5 minutes. Does not know if he lost consciousness but the episode resolved and he went home. On day of admission, pt stated he was walking outside, had sudden onset of vertigo and stated he was making a repetitive noise with his mouth and had a headache. Episode lasted a few minutes and resolved. Pt stated he did not lose consciousness but grabbed on to a side rail to prevent him from falling. He has not had symptoms like this before. He denied incontinence during these episodes. He denied tinnitus, headache, changes in vision, numbness/tingling, weakness, ataxia, head injuries, chest pain, sob, abdominal pain, n/v/d, recent illnesses, recent travel, recent surgeries. Denied use of drugs, alcohol. I was contacted by the emergency department evening of admission and advised Ct of head performed and showed a solitary 2.7x1.7x1.7 cm left frontal lobe hemorrhage is seen with mild surrounding edemaa-possible underlying neoplastic disease. Chronic sphenoid sinusitis. discussed with Dr. Karan Mccoy who also reviewed the images and felt lesion was suspicious for metastatic melanoma. neurosurgery note reviewed, Pt started on Keppra for seizure prophylaxis. Pt started on decadron 4mg QID for cranial edema. Discussed case with neurosurgeon , Dr. Karan Mccoy. Patient interested and radiation therapy after surgery. Completed sterotactic MRI 06/15 with surgical intervention on same date. Repeat head ct completed, previously seen lesion reduced in size to 1.5 X 1.4 cm from 2.1 X 1.9cm. NSGY note reviewed. patient downgraded to floor status, likely have sutures removed approximately 1 week and radiation therapy thereafter, per neurosurgery note. Remains on dexamethasone along with Keppra. Monitor blood pressure, maintain normotensive range. Plan is for radiation therapy after discharge, in agreement.
[2019-06-19] MEDS: levETIRAcetam 500 MG TABLET (FP) PO SCH ×2 (09:50→23:37)
[2019-06-19] MEDS: PANTOPRAZOLE 40 MG TABLET PO SCH (09:50)
[2019-06-19] MEDS ORDERED: DEXAMETHASONE 4 MG TABLET (FP) PO SCH (14:00)
--- NOTE | 2019-06-19 14:20 | PATH ---
Surgical Pathology Report Patient Name: ASHISH SCHULZ Med. Rec. #: [id number] /Age/Gender: 1940 (Age: 79) / M Account: [id number] Location: 4 W TELEMETRY U Taken: 06/15/2019 Received: 06/15/2019 Reported: 06/19/2019 Physicians: Edgar Lockwood M.D. Norman Rosen, M.D. Specimen(s) Received FRONTAL TUMOR, LEFT Clinical History Dysrhythmias Intraoperative Consult Diagnosis Left frontal tumor, frozen section: Malignant neoplasm, pending stains for definitive classification. Brando Allen M.D., 06/15/2019 Final Diagnosis FRONTAL TUMOR, LEFT, FRONTOPARIETAL CRANIOTOMY, RESECTION FOR TUMOR (FS): METASTATIC MELANOMA. SEE COMMENT. Comment: Immunohistochemical stains performed at [place], [place] ([id number]) and interpreted at [facility] show the tumor is positive for HMB45, SOX-10, Melan-A, and S100, while negative for AE1/3. Overall morphology and immunophenotype is consistent with metastatic melanoma. Prior history of melanoma noted. Findings discussed with Dr. Gibbons, 06/19/19. Positive and negative controls (internal if applicable) show appropriate results. Electronically Signed Gail Rice M.D. Gross Description Received fresh labeled "left frontal tumor," is a 2.3 x 2.0 x 0.3 cm aggregate of louis-red, hemorrhagic soft tissue admixed with blood clot. The specimen is entirely submitted for frozen section. The frozen section residue is entirely submitted in one cassette. /06/15/2019 saudi/06/15/2019
--- NOTE | 2019-06-19 14:55 | HOL ---
Hook-up date: 2019-06-17 12:25:00 Duration: 24:00:00 Test Indications: BRADYCARDIA Medications: 91865 QRS complexes 122 Ventricular ectopics which represent <1 % of total QRS comp. 23 Supraventricular ectopics which represent <1 % of total QRS comp. * Paced QRS complexs which represent % of total QRS comp. * % of Time Classified as Noise VENTRICULAR ECTOPY 116 Isolated 0 Bigeminal Cycles 3 Couplets 0 Runs 0 Beats in Runs * Beats LONGEST at * BPM at :: -- * Beats FASTEST at * BPM at :: -- SUPRAVENTRICULAR ECTOPY 23 Isolated 0 Couplets 0 Runs 0 Beats in Runs * Beats LONGEST at * BPM at :: -- * Beats FASTEST at * BPM at :: -- HEART RATES 30 MIN at 16:56:35 2019-06-17 45 AVG 104 MAX at 21:17:27 2019-06-17 LONGEST RR 2.472 secs at 05:49:20 2019-06-18 SCANNED BY MIKY LOUISE ON 06/19. 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 OCCASIONAL APCs, CODUCTED AND BLOCKED. oCCASIONA PVCs. SINGLE VENTRICULAR COUPLET. Confirmed by MD GIANFRANCO, DESTINEY ([id number]) on 06/19/2019 2:54:37 PM Referred By: FLACA COONEY DR Overread By: DESTINEY MEDEL MD
[2019-06-20] MEDS: DEXAMETHASONE 4 MG TABLET (FP) PO SCH ×3 (05:40→21:20)
[2019-06-20] MEDS: DOCUSATE SODIUM 100 MG CAPSULE (FP) PO SCH ×3 (05:40→21:20)
--- NOTE | 2019-06-20 09:01 | PN ---
Progress Note (short form) - Note Progress Note: Neurology History of Present Illness - General Chief Complaint: Lightheaded History Source: Patient Exam Limitations: No Limitations PCP: Dr. 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 Pt stated that on day prior to admission when he was driving he had sudden onset of vertigo with R sided facial pains which felt like pins and needles and felt the R side of his face twitching. He pulled over and stated the episode lasted for 5 minutes. Does not know if he lost consciousness but the episode resolved and he went home. On day of admission, pt stated he was walking outside, had sudden onset of vertigo and stated he was making a repetitive noise with his mouth and had a headache. Episode lasted a few minutes and resolved. Pt stated he did not lose consciousness but grabbed on to a side rail to prevent him from falling. He has not had symptoms like this before. He denied incontinence during these episodes. He denied tinnitus, headache, changes in vision, numbness/tingling, weakness, ataxia, head injuries, chest pain, sob, abdominal pain, n/v/d, recent illnesses, recent travel, recent surgeries. Denied use of drugs, alcohol. I was contacted by the emergency department evening of admission and advised Ct of head performed and showed a solitary 2.7x1.7x1.7 cm left frontal lobe hemorrhage is seen with mild surrounding edema-possible underlying neoplastic disease. Chronic sphenoid sinusitis. discussed with Dr. Karan Mccoy who also reviewed the images and felt lesion was suspicious for metastatic melanoma. neurosurgery note reviewed, Pt started on Keppra for seizure prophylaxis. Pt started on decadron 4mg QID for cranial edema. Discussed case with neurosurgeon , Dr. Karan Mccoy. Patient interested and radiation therapy after surgery. Completed sterotactic MRI 06/15 with surgical intervention on same date. Repeat head ct completed, previously seen lesion reduced in size to 1.5 X 1.4 cm from 2.1 X 1.9cm. NSGY note reviewed. patient downgraded to floor status, likely have sutures removed approximately 1 week and adjuvant radiation therapy thereafter, per neurosurgery note. Patient in good spirits and without new neurologic complaints or deficits, neurosurgery note reviewed. Possibly for discharge tomorrow to [facility] ([place], [place]) per notes. Active Medications Acetaminophen (Tylenol -) 650 mg PO Q6H PRN PRN Reason: PAIN 1-5 Acetaminophen/Codeine Phosphate (Tylenol # 3 -) 1 tab PO Q4H PRN PRN Reason: PAIN LEVEL 4 - 6 Dexamethasone (Decadron -) 4 mg PO TID [facility] Docusate Sodium (Colace -) 100 mg PO TID [facility] Last Admin: 06/19/19 05:47 Dose: 100 mg Levetiracetam (Keppra -) 500 mg PO BID [facility] Last Admin: 06/18/19 21:15 Dose: 500 mg Morphine Sulfate (Morphine Sulfate) 2 mg IVPUSH Q4H PRN PRN Reason: PAIN LEVEL 7 - 10 Ondansetron HCl (Zofran Injection) 4 mg IVPUSH Q6H PRN PRN Reason: NAUSEA Pantoprazole Sodium (Protonix -) 40 mg PO DAILY [facility] Last Admin: 06/18/19 09:09 Dose: 40 mg Senna (Senna -) 2 tab PO HS PRN PRN Reason: CONSTIPATION Last Admin: 06/18/19 08:49 Dose: 2 tab Tamsulosin HCl (Flomax -) 0.4 mg PO DAILY@0830 [facility] Last Admin: 06/19/19 08:02 Dose: 0.4 mg *Physical Exam Vital Signs Period Temp Pulse Resp BP Sys/Giordano Pulse Ox Last 24 Hr 97.9 F-99.4 F 46-58 18-20 109-149/52-79 98 - Physical Exam General Appearance: Yes: Nourished, Appropriately Dressed, Thin. No: Apparent Distress HEENT: positive: EOMI, BARBRA, Normal ENT Inspection, TMs Normal, Pharynx Normal. negative: Scleral Icterus (R), Scleral Icterus (L) Neck: positive: Trachea midline, Supple. negative: Carotid bruit, Lymphadenopathy (R), Lymphadenopathy (L) Respiratory/Chest: positive: Lungs Clear, Normal Breath Sounds. negative: Crackles, Rales, Rhonchi, Stridor, Wheezing Cardiovascular: positive: Regular Rhythm, Regular Rate, S1, S2. negative: Edema , JVD, Murmur Vascular Pulses: Dorsalis-Pedis (R): 2+, Doralis-Pedis (L): 2+ Gastrointestinal/Abdominal: positive: Normal Bowel Sounds, Soft. negative: Tender Musculoskeletal: positive: Normal Inspection. negative: CVA Tenderness Extremity: positive: Normal Capillary Refill. negative: Pedal Edema, Swelling, Calf Tenderness Integumentary: positive: Normal Color, Dry, Warm Neurologic: positive: primary operator II-XII NML intact, Fully Oriented, Alert, Normal Mood/ Affect, Normal Response, Motor Strength 5/5, Finger to Nose. negative: Facial Droop, Numbness, Sensory Deficit, Confused, Disoriented CBCD WBC 13.4 K/mm3 (4.0-10.0) H 06/19/19 05:25 RBC 3.30 M/mm3 (4.00-5.60) L 06/19/19 05:25 Hgb 10.8 GM/dL (11.7-16.9) L 06/19/19 05:25 Hct 31.7 % (35.4-49) L 06/19/19 05:25 MCV 96.0 fl (80-96) 06/19/19 05:25 MCHC 34.1 g/dl (32.0-35.9) 06/19/19 05:25 RDW 13.9 % (11.9-15.9) 06/19/19 05:25 Plt Count 126 K/MM3 (134-434) L 06/19/19 05:25 MPV 8.8 fl (7.5-11.1) 06/19/19 05:25 CMP Sodium 138 mmol/L (136-145) 06/19/19 05:25 Potassium 4.1 mmol/L (3.5-5.1) 06/19/19 05:25 Chloride 105 mmol/L (98-107) 06/19/19 05:25 Carbon Dioxide 25 mmol/L (21-32) 06/19/19 05:25 Anion Gap 8 MMOL/L (8-16) 06/19/19 05:25 BUN 25.1 mg/dL (7-18) H 06/19/19 05:25 Creatinine 0.8 mg/dL (0.55-1.3) 06/19/19 05:25 Random Glucose 107 mg/dL (74-106) H 06/19/19 05:25 Calcium 8.4 mg/dL (8.5-10.1) L 06/19/19 05:25 Total Bilirubin 0.7 mg/dL (0.2-1) 06/19/19 05:25 AST 15 U/L (15-37) 06/19/19 05:25 ALT 39 U/L (13-61) 06/19/19 05:25 Alkaline Phosphatase 75 U/L (45-117) 06/19/19 05:25 Total Protein 7.4 g/dl (6.4-8.2) 06/19/19 05:25 Albumin 2.6 g/dl (3.4-5.0) L 06/19/19 05:25 CARDIAC ENZYMES Creatine Kinase 65 U/L (26-308) 06/16/19 03:40 Troponin I 0.02 ng/ml (0.00-0.05) 06/16/19 03:40 Plan: 79y M, known to me from office visit with PMH of 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 Pt stated that on day prior to admission when he was driving he had sudden onset of vertigo with R sided facial pains which felt like pins and needles and felt the R side of his face twitching. He pulled over and stated the episode lasted for 5 minutes. Does not know if he lost consciousness but the episode resolved and he went home. On day of admission, pt stated he was walking outside, had sudden onset of vertigo and stated he was making a repetitive noise with his mouth and had a headache. Episode lasted a few minutes and resolved. Pt stated he did not lose consciousness but grabbed on to a side rail to prevent him from falling. He has not had symptoms like this before. He denied incontinence during these episodes. He denied tinnitus, headache, changes in vision, numbness/tingling, weakness, ataxia, head injuries, chest pain, sob, abdominal pain, n/v/d, recent illnesses, recent travel, recent surgeries. Denied use of drugs, alcohol. I was contacted by the emergency department evening of admission and advised Ct of head performed and showed a solitary 2.7x1.7x1.7 cm left frontal lobe hemorrhage is seen with mild surrounding edemaa-possible underlying neoplastic disease. Chronic sphenoid sinusitis. discussed with Dr. Karan Mccoy who also reviewed the images and felt lesion was suspicious for metastatic melanoma. neurosurgery note reviewed, Pt started on Keppra for seizure prophylaxis. Pt started on decadron 4mg QID for cranial edema. Discussed case with neurosurgeon , Dr. Karan Mccoy. Patient interested and radiation therapy after surgery. Completed sterotactic MRI 06/15 with surgical intervention on same date. Repeat head ct completed, previously seen lesion reduced in size to 1.5 X 1.4 cm from 2.1 X 1.9cm. NSGY note reviewed. patient downgraded to floor status, likely have sutures removed approximately 1 week and adjuvant radiation therapy thereafter, per neurosurgery note. Remains on dexamethasone along with Keppra. Monitor blood pressure, maintain normotensive range. Possibly for discharge tomorrow to [facility] ([place], [place]) per notes.
--- NOTE | 2019-06-20 09:20 | PN ---
Progress Note (short form) - Note Progress Note: NEUROSURGERY POD #5 In tele No headache, N/V, Sz. Ambulating independently Tolerating regular diet PE: Tmax 98.5, AF, VSS, DE 40's HEENT- ncision C/D/I; Neck- supple; Cor- RR; Lungs- CTA B; Abd- benign, + BS; Ext- no sign of DVT CN- intact II-XII, face symmetric; Motor- 5/5 without drift; Sensation- intact LT; DTR- 1+/hyporeflexic Probable solitary hemorrhagic L frontal metastatic melanoma with edema, final path pending Decadron 4 mg bid and continue through RT Keppra 500 mg bid/continue Outpatient visit next Tuesday for suture removal Keep incision dry x 1 week Adjuvant RT when sutures out and incision healed Instructions given D/w Dr Robles
[2019-06-20] MEDS: levETIRAcetam 500 MG TABLET (FP) PO SCH ×2 (09:45→21:20)
[2019-06-20] MEDS: TAMSULOSIN HCL 0.4 MG CAP PO SCH (09:45)
[2019-06-20] MEDS: PANTOPRAZOLE 40 MG TABLET PO SCH (09:45)
--- NOTE | 2019-06-20 11:17 | PN ---
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) - Current Medication List Current Medications: Active Medications Acetaminophen (Tylenol -) 650 mg PO Q6H PRN PRN Reason: PAIN 1-5 Acetaminophen/Codeine Phosphate (Tylenol # 3 -) 1 tab PO Q4H PRN PRN Reason: PAIN LEVEL 4 - 6 Dexamethasone (Decadron -) 4 mg PO BID [facility] Last Admin: 06/20/19 09:45 Dose: 4 mg Docusate Sodium (Colace -) 100 mg PO TID [facility] Last Admin: 06/20/19 05:40 Dose: 100 mg Levetiracetam (Keppra -) 500 mg PO BID [facility] Last Admin: 06/20/19 09:45 Dose: 500 mg Morphine Sulfate (Morphine Sulfate) 2 mg IVPUSH Q4H PRN PRN Reason: PAIN LEVEL 7 - 10 Ondansetron HCl (Zofran Injection) 4 mg IVPUSH Q6H PRN PRN Reason: NAUSEA Pantoprazole Sodium (Protonix -) 40 mg PO DAILY [facility] Last Admin: 06/20/19 09:45 Dose: 40 mg Senna (Senna -) 2 tab PO HS PRN PRN Reason: CONSTIPATION Last Admin: 06/18/19 08:49 Dose: 2 tab Tamsulosin HCl (Flomax -) 0.4 mg PO DAILY@0830 [facility] Last Admin: 06/20/19 09:45 Dose: 0.4 mg - Objective Vital Signs: Vital Signs Temperature 97.8 F 06/20/19 09:41 Pulse Rate 53 L 06/20/19 09:41 Respiratory Rate 20 06/20/19 09:41 Blood Pressure 117/76 06/20/19 09:41 O2 Sat by Pulse Oximetry (%) 97 06/20/19 09:00 Constitutional: Yes: No Distress Eyes: Yes: Conjunctiva Clear HENT: Yes: Atraumatic Neck: Yes: Supple Cardiovascular: Yes: Regular Rate and Rhythm Respiratory: Yes: CTA Bilaterally Gastrointestinal: Yes: Soft. No: Tenderness Genitourinary: No: Hematuria Musculoskeletal: No: Joint Stiffness, Joint Swelling Extremities: No: Cold, Cool, Cyanosis Edema: No Integumentary: No: Rash, Venous Stasis Changes Neurological: Yes: WNL, Alert, Oriented ...Motor Strength: WNL Psychiatric: Yes: WNL, Alert, Oriented. 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 s/p L frontal mass excision, path c/w melanoma (metastatic). po steroids; po keppra Neurology and NS f/u; cardiology f/u ONC; radiation f/u d/w pt and staff
--- NOTE | 2019-06-20 17:57 | PN ---
Progress Note, Physician Chief Complaint: Pt A&Ox3; denies headache. Denies chest pain, dizziness, or palpitations. History of Present Illness: 79-year-old white man with past medical history of hypertension, lung cancer status post right lower lobe lobectomy in 2018 and BPH experienced 2 episodes of sudden dizziness associated with headache and involuntary facial twitching while driving. these episodes lasted about 5 minutes each - Current Medication List Current Medications: Active Medications Acetaminophen (Tylenol -) 650 mg PO Q6H PRN PRN Reason: PAIN 1-5 Acetaminophen/Codeine Phosphate (Tylenol # 3 -) 1 tab PO Q4H PRN PRN Reason: PAIN LEVEL 4 - 6 Dexamethasone (Decadron -) 4 mg PO BID [facility] Last Admin: 06/20/19 09:45 Dose: 4 mg Docusate Sodium (Colace -) 100 mg PO TID [facility] Last Admin: 06/20/19 13:58 Dose: 100 mg Levetiracetam (Keppra -) 500 mg PO BID [facility] Last Admin: 06/20/19 09:45 Dose: 500 mg Morphine Sulfate (Morphine Sulfate) 2 mg IVPUSH Q4H PRN PRN Reason: PAIN LEVEL 7 - 10 Ondansetron HCl (Zofran Injection) 4 mg IVPUSH Q6H PRN PRN Reason: NAUSEA Pantoprazole Sodium (Protonix -) 40 mg PO DAILY [facility] Last Admin: 06/20/19 09:45 Dose: 40 mg Senna (Senna -) 2 tab PO HS PRN PRN Reason: CONSTIPATION Last Admin: 06/18/19 08:49 Dose: 2 tab Tamsulosin HCl (Flomax -) 0.4 mg PO DAILY@0830 [facility] Last Admin: 06/20/19 09:45 Dose: 0.4 mg - Objective Vital Signs: Vital Signs Temperature 97.6 F 06/20/19 13:00 Pulse Rate 43 L 06/20/19 13:00 Respiratory Rate 18 06/20/19 13:00 Blood Pressure 119/57 L 06/20/19 13:00 O2 Sat by Pulse Oximetry (%) 97 06/20/19 09:00 Constitutional: Yes: Calm Eyes: Yes: WNL HENT: Yes: Other (bandages on skull) Neck: Yes: WNL Cardiovascular: Yes: Bradycardia, S1, S2 Respiratory: Yes: Regular Gastrointestinal: Yes: Soft ...Rectal Exam: Yes: Deferred Genitourinary: No: Anuria Musculoskeletal: Yes: Muscle Weakness Extremities: Yes: Cool Edema: No Peripheral Pulses WNL: Yes Integumentary: Yes: Incision (s/p brain sugery) Wound/Incision: Yes: Dressing Dry and Intact Neurological: Yes: Alert, Oriented, Weakness Psychiatric: Yes: WNL Labs: CBC, BMP 06/19/19 05:25 06/19/19 05:25 INR, PTT INR 1.11 (0.83-1.09) H 06/14/19 10:26 - ....Imaging EKG: Image Reviewed Problem List - Problems (1) Seizures Code(s): R56.9 - UNSPECIFIED CONVULSIONS (2) BPH (benign prostatic hyperplasia) Code(s): N40.0 - BENIGN PROSTATIC HYPERPLASIA WITHOUT LOWER URINRY TRACT SYMP (3) Brain mass Assessment/Plan: S/p surgery for brain mass. 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 BP controlled; on no antrihypertensives presently. Code(s): I10 - ESSENTIAL (PRIMARY) HYPERTENSION (6) Sinus bradycardia Code(s): R00.1 - BRADYCARDIA, UNSPECIFIED
--- NOTE | 2019-06-20 18:04 | PN ---
Progress Note, Physician Chief Complaint: Pt A&Ox3; denies headache. Denies chest pain, dizziness, or palpitations. History of Present Illness: 79-year-old white man with past medical history of hypertension, lung cancer status post right lower lobe lobectomy in 2018 and BPH experienced 2 episodes of sudden dizziness associated with headache and involuntary facial twitching while driving. these episodes lasted about 5 minutes each - Current Medication List Current Medications: Active Medications Acetaminophen (Tylenol -) 650 mg PO Q6H PRN PRN Reason: PAIN 1-5 Acetaminophen/Codeine Phosphate (Tylenol # 3 -) 1 tab PO Q4H PRN PRN Reason: PAIN LEVEL 4 - 6 Dexamethasone (Decadron -) 4 mg PO BID [facility] Last Admin: 06/20/19 09:45 Dose: 4 mg Docusate Sodium (Colace -) 100 mg PO TID [facility] Last Admin: 06/20/19 13:58 Dose: 100 mg Levetiracetam (Keppra -) 500 mg PO BID [facility] Last Admin: 06/20/19 09:45 Dose: 500 mg Morphine Sulfate (Morphine Sulfate) 2 mg IVPUSH Q4H PRN PRN Reason: PAIN LEVEL 7 - 10 Ondansetron HCl (Zofran Injection) 4 mg IVPUSH Q6H PRN PRN Reason: NAUSEA Pantoprazole Sodium (Protonix -) 40 mg PO DAILY [facility] Last Admin: 06/20/19 09:45 Dose: 40 mg Senna (Senna -) 2 tab PO HS PRN PRN Reason: CONSTIPATION Last Admin: 06/18/19 08:49 Dose: 2 tab Tamsulosin HCl (Flomax -) 0.4 mg PO DAILY@0830 [facility] Last Admin: 06/20/19 09:45 Dose: 0.4 mg - Objective Vital Signs: Vital Signs Temperature 97.6 F 06/20/19 13:00 Pulse Rate 43 L 06/20/19 13:00 Respiratory Rate 18 06/20/19 13:00 Blood Pressure 119/57 L 06/20/19 13:00 O2 Sat by Pulse Oximetry (%) 97 06/20/19 09:00 Constitutional: Yes: Calm Eyes: Yes: WNL HENT: Yes: Other (s/p craniotomy; sutures afixed) Neck: Yes: WNL Cardiovascular: Yes: S1, S2 Respiratory: Yes: WNL Gastrointestinal: Yes: Soft ...Rectal Exam: Yes: Deferred Genitourinary: Yes: WNL Breast(s): Yes: WNL Musculoskeletal: Yes: Muscle Weakness Extremities: Yes: WNL Edema: No Peripheral Pulses WNL: Yes Integumentary: Yes: Incision Wound/Incision: Yes: Sutures Intact Neurological: Yes: Alert, Oriented, Weakness Psychiatric: Yes: Alert, Oriented Labs: CBC, BMP 06/19/19 05:25 06/19/19 05:25 INR, PTT INR 1.11 (0.83-1.09) H 06/14/19 10:26 - ....Imaging EKG: Image Reviewed Problem List - Problems (1) Seizures Assessment/Plan: on Keppra Code(s): R56.9 - UNSPECIFIED CONVULSIONS (2) BPH (benign prostatic hyperplasia) Code(s): N40.0 - BENIGN PROSTATIC HYPERPLASIA WITHOUT LOWER URINRY TRACT SYMP (3) Brain mass Assessment/Plan: 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 Pt is ambulatory; no headache. A&Ox3. F/u with neurosurgeon Code(s): G93.89 - OTHER SPECIFIED DISORDERS OF BRAIN (4) Melanoma metastatic to left lung Code(s): C78.02 - SECONDARY MALIGNANT NEOPLASM OF LEFT LUNG (5) HTN (hypertension) Assessment/Plan: ECHO: normal LVEF; mild TR and AR. BP controlled; on no antihypertensives presently. Code(s): I10 - ESSENTIAL (PRIMARY) HYPERTENSION (6) Sinus bradycardia Assessment/Plan: Pt has had asymptomatic sinus bradycardia for years. Decadron may be a cause of or exacerbate bradycardia. Pt presently has no chest pain, palpitations, or dizziness. Ambulating well. Code(s): R00.1 - BRADYCARDIA, UNSPECIFIED
[2019-06-20 19:57] VITALS: BMI 23.1
[2019-06-21] MEDS: DOCUSATE SODIUM 100 MG CAPSULE (FP) PO SCH (06:02)
--- NOTE | 2019-06-21 07:07 | PN ---
Progress Note, Physician - Current Medication List Current Medications: Active Medications Acetaminophen (Tylenol -) 650 mg PO Q6H PRN PRN Reason: PAIN 1-5 Dexamethasone (Decadron -) 4 mg PO BID [facility] Last Admin: 06/20/19 21:20 Dose: 4 mg Docusate Sodium (Colace -) 100 mg PO TID [facility] Last Admin: 06/21/19 06:02 Dose: 100 mg Levetiracetam (Keppra -) 500 mg PO BID [facility] Last Admin: 06/20/19 21:20 Dose: 500 mg Ondansetron HCl (Zofran Injection) 4 mg IVPUSH Q6H PRN PRN Reason: NAUSEA Pantoprazole Sodium (Protonix -) 40 mg PO DAILY [facility] Last Admin: 06/20/19 09:45 Dose: 40 mg Senna (Senna -) 2 tab PO HS PRN PRN Reason: CONSTIPATION Last Admin: 06/18/19 08:49 Dose: 2 tab Tamsulosin HCl (Flomax -) 0.4 mg PO DAILY@0830 [facility] Last Admin: 06/20/19 09:45 Dose: 0.4 mg - Objective Vital Signs: Vital Signs Temperature 97.1 F L 06/21/19 05:00 Pulse Rate 38 L 06/21/19 05:00 Respiratory Rate 20 06/21/19 05:00 Blood Pressure 96/44 L 06/21/19 05:00 O2 Sat by Pulse Oximetry (%) 97 06/20/19 21:00 Labs: CBC, BMP 06/19/19 05:25 06/19/19 05:25 INR, PTT INR 1.11 (0.83-1.09) H 06/14/19 10:26
--- NOTE | 2019-06-21 07:08 | DS ---
Physical Examination Vital Signs: Vital Signs Temperature 97.1 F L 06/21/19 05:00 Pulse Rate 38 L 06/21/19 05:00 Respiratory Rate 20 06/21/19 05:00 Blood Pressure 96/44 L 06/21/19 05:00 O2 Sat by Pulse Oximetry (%) 97 06/20/19 21:00 Findings/Remarks: feels well, wants to go home; VSS ambulatory; path c/w metastatic melanoma d/w pt aware do not drive until cleared by neuro and / or NS; DC instructions d/w pt NS, ONC, RAD ONC; po steroids and keppra as ordered. Constitutional: Yes: No Distress, Calm Eyes: Yes: Conjunctiva Clear HENT: Yes: Atraumatic Neck: Yes: Supple Cardiovascular: Yes: Regular Rate and Rhythm Respiratory: Yes: CTA Bilaterally Gastrointestinal: Yes: Soft. No: Tenderness Renal/: No: Hematuria Musculoskeletal: No: Joint Stiffness, Joint Swelling Extremities: No: Cold, Cool, Cyanosis Edema: No Integumentary: No: Rash, Venous Stasis Changes Neurological: Yes: Alert, Oriented ...Motor Strength: WNL Psychiatric: Yes: Alert, Oriented. No: Agitated, Suicidal Ideation Labs: CBC, BMP 06/19/19 05:25 06/19/19 05:25 Discharge Summary Problems reviewed: Yes Reason For Visit: DYSRHYTHMIAS Current Active Problems BPH (benign prostatic hyperplasia) (Acute) Brain mass (Acute) Intracranial hemorrhage (Acute) LOC (loss of consciousness) (Acute) Melanoma metastatic to left lung (Acute) Seizures (Acute) Procedures: Principal: 79 YOM admitted with seizure - brain mass h/o melanoma and lung CA (melanoma mets) Other Procedures: seen by neurology, ONC, NS; 1 solitary brain mass excised by NS Hospital Course: started on steroids and keppra; had brain mass excision; Health Concerns: improved with above; mass c/w metastatic melanoma; seen by ONC and RAD ONC; will need close f/u and tx outpt Condition: Stable - Instructions Diet, Activity, Other Instructions: f/u PCP, neurosurgery, neurology, cardiology, ONC and Rad ONC over the next few weeks; take keppra and decadron po as prescribed; do not drive until cleared by neurology / NS; RTER if any pain fever new focal c/o or seizure activity Post-op Instructions Diet: Regular Activity: May shower but keep incision line dry. Restrictions: Do not lift anything over 10lbs. Light activity only. Do not drive. Additional Instructions: Keep incision line clean and dry. Change dressing daily. Report any chills, fever (100.5 or greater), any wound drainage, seizure, or any neurological changes to Dr. Mccoy. Do not drive for two weeks. Initial postop appt: Call Dr Mccoy's office to be seen next Tuesday for suture removal. Also F/u with Edwige Goodrich, and Janine. Referrals: Abena Robles [Primary Care Provider] - Francisco Javier Mccoy MD [Staff Physician] - Quan Jerez MD [Staff Physician] - Wesley Rai MD [Staff Physician] - Henok Gibbons MD [Staff Physician] - Disposition: VNS/HOME HEALTH CARE - Home Medications Comprehensive Discharge Medication List: Ambulatory Orders Tamsulosin HCl [Flomax] 0.4 mg PO HS 05/10/16 Telmisartan [Micardis] 20 mg PO DAILY 05/10/16
--- NOTE | 2019-06-21 08:50 | PN ---
Progress Note (short form) - Note Progress Note: Neurology History of Present Illness - General Chief Complaint: Lightheaded History Source: Patient Exam Limitations: No Limitations PCP: Dr. 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 Pt stated that on day prior to admission when he was driving he had sudden onset of vertigo with R sided facial pains which felt like pins and needles and felt the R side of his face twitching. He pulled over and stated the episode lasted for 5 minutes. Does not know if he lost consciousness but the episode resolved and he went home. On day of admission, pt stated he was walking outside, had sudden onset of vertigo and stated he was making a repetitive noise with his mouth and had a headache. Episode lasted a few minutes and resolved. Pt stated he did not lose consciousness but grabbed on to a side rail to prevent him from falling. He has not had symptoms like this before. He denied incontinence during these episodes. He denied tinnitus, headache, changes in vision, numbness/tingling, weakness, ataxia, head injuries, chest pain, sob, abdominal pain, n/v/d, recent illnesses, recent travel, recent surgeries. Denied use of drugs, alcohol. I was contacted by the emergency department evening of admission and advised Ct of head performed and showed a solitary 2.7x1.7x1.7 cm left frontal lobe hemorrhage is seen with mild surrounding edema-possible underlying neoplastic disease. Chronic sphenoid sinusitis. discussed with Dr. Karan Mccoy who also reviewed the images and felt lesion was suspicious for metastatic melanoma. neurosurgery note reviewed, Pt started on Keppra for seizure prophylaxis. Pt started on decadron 4mg QID for cranial edema. Discussed case with neurosurgeon , Dr. Karan Mccoy. Patient interested and radiation therapy after surgery. Completed sterotactic MRI 06/15 with surgical intervention on same date. Repeat head ct completed, previously seen lesion reduced in size to 1.5 X 1.4 cm from 2.1 X 1.9cm. NSGY note reviewed. patient downgraded to floor status, neurologically stable and likely for DC home. Denies any complaints and no consultations from surgical intervention. Active Medications Acetaminophen (Tylenol -) 650 mg PO Q6H PRN PRN Reason: PAIN 1-5 Dexamethasone (Decadron -) 4 mg PO BID [facility] Last Admin: 06/20/19 21:20 Dose: 4 mg Docusate Sodium (Colace -) 100 mg PO TID [facility] Last Admin: 06/21/19 06:02 Dose: 100 mg Levetiracetam (Keppra -) 500 mg PO BID [facility] Last Admin: 06/20/19 21:20 Dose: 500 mg Ondansetron HCl (Zofran Injection) 4 mg IVPUSH Q6H PRN PRN Reason: NAUSEA Pantoprazole Sodium (Protonix -) 40 mg PO DAILY [facility] Last Admin: 06/20/19 09:45 Dose: 40 mg Senna (Senna -) 2 tab PO HS PRN PRN Reason: CONSTIPATION Last Admin: 06/18/19 08:49 Dose: 2 tab Tamsulosin HCl (Flomax -) 0.4 mg PO DAILY@0830 [facility] Last Admin: 06/20/19 09:45 Dose: 0.4 mg *Physical Exam Vital Signs Period Temp Pulse Resp BP Sys/Giordano Pulse Ox Last 24 Hr 97.1 F-98.1 F 38-53 18-20 96-119/44-76 97-97 - Physical Exam General Appearance: Yes: Nourished, Appropriately Dressed, Thin. No: Apparent Distress HEENT: positive: EOMI, BARBRA, Normal ENT Inspection, TMs Normal, Pharynx Normal. negative: Scleral Icterus (R), Scleral Icterus (L) Neck: positive: Trachea midline, Supple. negative: Carotid bruit, Lymphadenopathy (R), Lymphadenopathy (L) Respiratory/Chest: positive: Lungs Clear, Normal Breath Sounds. negative: Crackles, Rales, Rhonchi, Stridor, Wheezing Cardiovascular: positive: Regular Rhythm, Regular Rate, S1, S2. negative: Edema , JVD, Murmur Vascular Pulses: Dorsalis-Pedis (R): 2+, Doralis-Pedis (L): 2+ Gastrointestinal/Abdominal: positive: Normal Bowel Sounds, Soft. negative: Tender Musculoskeletal: positive: Normal Inspection. negative: CVA Tenderness Extremity: positive: Normal Capillary Refill. 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 negative: Facial Droop, Numbness, Sensory Deficit, Confused, Disoriented CBCD WBC 13.4 K/mm3 (4.0-10.0) H 06/19/19 05:25 RBC 3.30 M/mm3 (4.00-5.60) L 06/19/19 05:25 Hgb 10.8 GM/dL (11.7-16.9) L 06/19/19 05:25 Hct 31.7 % (35.4-49) L 06/19/19 05:25 MCV 96.0 fl (80-96) 06/19/19 05:25 MCHC 34.1 g/dl (32.0-35.9) 06/19/19 05:25 RDW 13.9 % (11.9-15.9) 06/19/19 05:25 Plt Count 126 K/MM3 (134-434) L 06/19/19 05:25 MPV 8.8 fl (7.5-11.1) 06/19/19 05:25 CMP Sodium 138 mmol/L (136-145) 06/19/19 05:25 Potassium 4.1 mmol/L (3.5-5.1) 06/19/19 05:25 Chloride 105 mmol/L (98-107) 06/19/19 05:25 Carbon Dioxide 25 mmol/L (21-32) 06/19/19 05:25 Anion Gap 8 MMOL/L (8-16) 06/19/19 05:25 BUN 25.1 mg/dL (7-18) H 06/19/19 05:25 Creatinine 0.8 mg/dL (0.55-1.3) 06/19/19 05:25 Random Glucose 107 mg/dL (74-106) H 06/19/19 05:25 Calcium 8.4 mg/dL (8.5-10.1) L 06/19/19 05:25 Total Bilirubin 0.7 mg/dL (0.2-1) 06/19/19 05:25 AST 15 U/L (15-37) 06/19/19 05:25 ALT 39 U/L (13-61) 06/19/19 05:25 Alkaline Phosphatase 75 U/L (45-117) 06/19/19 05:25 Total Protein 7.4 g/dl (6.4-8.2) 06/19/19 05:25 Albumin 2.6 g/dl (3.4-5.0) L 06/19/19 05:25 CARDIAC ENZYMES Creatine Kinase 65 U/L (26-308) 06/16/19 03:40 Troponin I 0.02 ng/ml (0.00-0.05) 06/16/19 03:40 Plan: 79y M, known to me from office visit with PMH of 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 Pt stated that on day prior to admission when he was driving he had sudden onset of vertigo with R sided facial pains which felt like pins and needles and felt the R side of his face twitching. He pulled over and stated the episode lasted for 5 minutes. Does not know if he lost consciousness but the episode resolved and he went home. On day of admission, pt stated he was walking outside, had sudden onset of vertigo and stated he was making a repetitive noise with his mouth and had a headache. Episode lasted a few minutes and resolved. Pt stated he did not lose consciousness but grabbed on to a side rail to prevent him from falling. He has not had symptoms like this before. He denied incontinence during these episodes. He denied tinnitus, headache, changes in vision, numbness/tingling, weakness, ataxia, head injuries, chest pain, sob, abdominal pain, n/v/d, recent illnesses, recent travel, recent surgeries. Denied use of drugs, alcohol. I was contacted by the emergency department evening of admission and advised Ct of head performed and showed a solitary 2.7x1.7x1.7 cm left frontal lobe hemorrhage is seen with mild surrounding edemaa-possible underlying neoplastic disease. Chronic sphenoid sinusitis. discussed with Dr. Karan Mccoy who also reviewed the images and felt lesion was suspicious for metastatic melanoma. neurosurgery note reviewed, Pt started on Keppra for seizure prophylaxis. Pt started on decadron 4mg QID for cranial edema. Discussed case with neurosurgeon , Dr. Karan Mccoy. Patient interested and radiation therapy after surgery. Completed sterotactic MRI 06/15 with surgical intervention on same date. Repeat head ct completed, previously seen lesion reduced in size to 1.5 X 1.4 cm from 2.1 X 1.9cm. NSGY note reviewed. patient downgraded to floor status, likely have sutures removed approximately 1 week and adjuvant radiation therapy thereafter, per neurosurgery note. Remains on dexamethasone along with Keppra. patient downgraded to floor status, neurologically stable and likely for DC home. Denies any complaints and no consultations from surgical intervention. No objection to discharge home.
[2019-06-21] MEDS: TAMSULOSIN HCL 0.4 MG CAP PO SCH (09:12)
[2019-06-21] MEDS: levETIRAcetam 500 MG TABLET (FP) PO SCH (09:13)
[2019-06-21] MEDS: DEXAMETHASONE 4 MG TABLET (FP) PO SCH (09:13)
[2019-06-21] MEDS: PANTOPRAZOLE 40 MG TABLET PO SCH (09:13)
[2019-06-21 12:21] VITALS: BP 118/57; PULSE 41; TEMP 99.7
--- NOTE | 2019-06-25 10:15 | PN ---
Progress Note, Physician Chief Complaint: Pt A&Ox3; denies headache. Ambulates in room without dyspnea or chest pain. History of Present Illness: 79-year-old white man with past medical history of hypertension, lung cancer status post right lower lobe lobectomy in 2018 and BPH experienced 2 episodes of sudden dizziness associated with headache and involuntary facial twitching while driving. these episodes lasted about 5 minutes each - Objective Vital Signs: Vital Signs Temperature 99.7 F H 06/21/19 12:19 Pulse Rate 41 L 06/21/19 12:19 Respiratory Rate 18 06/21/19 12:19 Blood Pressure 118/57 L 06/21/19 12:19 O2 Sat by Pulse Oximetry (%) 97 06/21/19 12:20 Constitutional: Yes: No Distress Eyes: Yes: WNL HENT: Yes: Other (s/p brain surgery; sutures dry, nontender) Neck: Yes: WNL Cardiovascular: Yes: WNL Respiratory: Yes: WNL Gastrointestinal: Yes: Soft ...Rectal Exam: Yes: Deferred Genitourinary: No: Anuria Musculoskeletal: Yes: Muscle Weakness Extremities: Yes: WNL Edema: No Peripheral Pulses WNL: Yes Integumentary: Yes: Other Wound/Incision: Yes: Clean/Dry Neurological: Yes: Alert, Oriented, Weakness Psychiatric: Yes: WNL Labs: CBC, BMP 06/19/19 05:25 06/19/19 05:25 INR, PTT INR 1.11 (0.83-1.09) H 06/14/19 10:26 Problem List - Problems (1) Seizures Assessment/Plan: on Keppra Code(s): R56.9 - UNSPECIFIED CONVULSIONS (2) BPH (benign prostatic hyperplasia) Code(s): N40.0 - BENIGN PROSTATIC HYPERPLASIA WITHOUT LOWER URINRY TRACT SYMP (3) Brain mass Assessment/Plan: 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 Pt is ambulatory; no headache. A&Ox3. F/u with neurosurgeon Code(s): G93.89 - OTHER SPECIFIED DISORDERS OF BRAIN (4) Melanoma metastatic to left lung Code(s): C78.02 - SECONDARY MALIGNANT NEOPLASM OF LEFT LUNG (5) HTN (hypertension) Assessment/Plan: ECHO: normal LVEF; mild TR and AR. BP controlled; on no antihypertensives presently. Code(s): I10 - ESSENTIAL (PRIMARY) HYPERTENSION (6) Sinus bradycardia Assessment/Plan: Pt has had asymptomatic sinus bradycardia for years. Decadron may be a cause of or may exacerbate bradycardia. Pt presently has no chest pain, palpitations, or dizziness. Ambulating well. Code(s): R00.1 - BRADYCARDIA, UNSPECIFIED
--- NOTE | 2019-06-26 12:21 | SURG ---
Surgery Optometrist Note Optometrist: Anibal Rossi PA-C Date of Service: 06/15/19 Diagnosis: Lt frontal hemorrhagic tumor with edema Procedure: Lt fronto-parietal craniotomy, stereotactic navigation, resection of tumor, microdissection, cranial plating system I was present for the entirety of the operative procedure. For further detail, please refer to operative report. Visit type - Case Type Case Type: ED Admission - Emergency Emergency Visit: Yes ED Registration Date: 06/12/19 Care time: The patient presented to the Emergency Department on the above date and was hospitalized for further evaluation of their emergent condition. - New patient This patient is new to me today: Yes Date on this admission: 06/26/19 - Critical Care Critical Care patient: No
== END 2019-06-21 14:22 | disposition home health service (06) | DRG 25 ==
LOC: JER 16:44 → JERBED 18:38 → J4W 06-13 21:43 → JSAMEDAYSX 06-15 19:19 → JICU 06-16 → J4W 06-17 18:20
PROVIDERS: ADMIT Internal Medicine; ATTEND Internal Medicine
PROC: 00B00ZZ Excision of Brain, Open Approach (ICD-10-PCS; principal; 2019-06-15 12:00)
DX: C79.31 Secondary malignant neoplasm of brain (principal); G93.6 Cerebral edema; I62.9 Nontraumatic intracranial hemorrhage, unspecified; C78.00 Secondary malignant neoplasm of unspecified lung; I10 Essential (primary) hypertension; N40.0 Benign prostatic hyperplasia without lower urinary tract symptoms; R00.1 Bradycardia, unspecified; K21.9 Gastro-esophageal reflux disease without esophagitis; C44.90 Unspecified malignant neoplasm of skin, unspecified; R51 Headache; D64.9 Anemia, unspecified; E88.09 Other disorders of plasma-protein metabolism, not elsewhere classified; R56.9 Unspecified convulsions; D69.6 Thrombocytopenia, unspecified; I44.0 Atrioventricular block, first degree; J32.3 Chronic sphenoidal sinusitis
CPT/HCPCS: 36415; 70450-TC; 70552-TC; 70553-TC; 71045-TC-FY; 80048; 80053; 81003; 82550; 82784; 83735; 84100; 84155; 84165; 84443; 84484; 85025; 85027; 85610; 85730; 86850; 86900; 86901; 86922; 87086; 88307-TC; 88331-TC; 93005; 93010; 93225; 93226; 93306-TC; 94760; 97116-GP; 97161-GP; 99285-25; A9579; J1100; J7030

== ENCOUNTER 2021-08-24 09:59 | Observation (INO) | payer OTHER ==
[2021-08-24] MEDS ORDERED: MECLIZINE HCL 25 MG TABLET (FP) PO ONE (11:00)
[2021-08-24] MEDS ORDERED: MECLIZINE HCL 25 MG TABLET (FP) ONE (11:20)
[2021-08-24 11:40] LABS: BASO % 0.6 % (0-2.0); EOS % 0.2 % (0-4.5); LYMPH % 16.7 % (8-40); MCH 32.3 pg (25.7-33.7); MCHC 34.4 g/dl (32.0-35.9); MEAN CELL VOLUME 93.8 fl (80-96); MEAN PLT VOLUME 7.6 fl (7.5-11.1); MONO % 8.5 % (3.8-10.2); PLATELET COUNT 170 10^3/uL (134-434); RBC 3.73 M/mm3 (4.00-5.60); RDW 13.2 % (11.9-15.9); WHITE BLOOD COUNT 5.1 K/mm3 (4.0-10.0)
[2021-08-24 11:47] LABS: ALBUMIN 3.4 g/dl (3.4-5.0); BLOOD UREA NITROGEN 15.4 mg/dL (7-18)
[2021-08-24 11:50] LABS: CREATININE 0.9 mg/dL (0.55-1.3)
[2021-08-24 11:52] LABS: BILIRUBIN,TOTAL 0.4 mg/dL (0.2-1); TOT PROT 7.5 g/dl (6.4-8.2)
[2021-08-24] MEDS ORDERED: METOCLOPRAMIDE HCL INJECTION 10 MG/2 ML VIAL IVPB ONE (12:43)
[2021-08-24] MEDS ORDERED: SODIUM CHLORIDE 0.9% 1000 ML INFUS.BAG IV ONE (13:37)
[2021-08-24] MEDS ORDERED: ACETAMINOPHEN 1000 MG/100 ML BAG IVPB ONE (13:37)
[2021-08-24 13:48] LABS: URINE APPEARANCE CLEAR; URINE BILIRUBIN NEGATIVE (NEGATIVE); URINE COLOR YELLOW; URINE GLUCOSE (UA) NEGATIVE (NEGATIVE); URINE KETONE NEGATIVE (NEGATIVE); URINE LEUK ESTERASE NEGATIVE (NEGATIVE); URINE NITRITE NEGATIVE (NEGATIVE); URINE PROTEIN NEGATIVE (NEGATIVE); URINE UROBILINOGEN 0.2 mg/dL (0.2-1.0)
[2021-08-24] MEDS ORDERED: ACETAMINOPHEN 325 MG TABLET (FP) PO PRN (14:06)
[2021-08-24] MEDS ORDERED: METOCLOPRAMIDE HCL INJECTION 10 MG/2 ML VIAL ONE (16:41)
[2021-08-24] MEDS ORDERED: ACETAMINOPHEN INJECTION 100 ML IVPB ONE (16:41)
[2021-08-24] MEDS: levETIRAcetam 500 MG TABLET (FP) PO SCH (21:16)
[2021-08-24] MEDS: HEPARIN NA (PORCINE) 5,000 UNITS/ML 1ML VIAL SQ SCH (21:16)
[2021-08-24] MEDS ORDERED: ALBUTEROL SO4 HFA INHALER IH PRN (22:23)
[2021-08-25 00:48] VITALS: BMI 24.5
[2021-08-25] MEDS: LEVOTHYROXINE NA 50 MCG TABLET (FP) PO SCH (06:07)
[2021-08-25] MEDS: LOSARTAN POTASSIUM 50 MG TABLET PO SCH (09:58)
[2021-08-25] MEDS: TAMSULOSIN HCL 0.4 MG CAP PO SCH ×2 (09:58→21:12)
[2021-08-25] MEDS: ALLOPURINOL 300 MG TABLET (FP) PO SCH (09:58)
[2021-08-25] MEDS: levETIRAcetam 500 MG TABLET (FP) PO SCH ×2 (09:58→21:12)
[2021-08-25] MEDS: PANTOPRAZOLE 40 MG TABLET PO SCH (09:58)
[2021-08-25] MEDS: FLUTICASONE/UMECLIDIN/VILANTER(100-62.5-25 TRELEGY ELLIPTA) INAHLER IH SCH (09:59)
[2021-08-25] MEDS: HEPARIN NA (PORCINE) 5,000 UNITS/ML 1ML VIAL SQ SCH ×3 (09:59→21:23)
[2021-08-25] MEDS ORDERED: LOSARTAN POTASSIUM 25 MG TABLET PO SCH (10:00)
[2021-08-25] MEDS ORDERED: AMIODARONE HCL 200 MG TABLET PO SCH (10:00)
[2021-08-25] MEDS ORDERED: MECLIZINE HCL 25 MG TABLET (FP) PO PRN (16:39)
[2021-08-25] MEDS: ATORVASTATIN CA 40 MG TABLET (FP) PO SCH ×2 (21:12→21:23)
[2021-08-25] MEDS: MONTELUKAST NA 10 MG TABLET PO SCH ×2 (21:15→21:23)
[2021-08-26] MEDS: TAMSULOSIN HCL 0.4 MG CAP PO SCH ×2 (07:58→22:11)
[2021-08-26] MEDS: LEVOTHYROXINE NA 50 MCG TABLET (FP) PO SCH (07:58)
[2021-08-26] MEDS: ALLOPURINOL 300 MG TABLET (FP) PO SCH (10:18)
[2021-08-26] MEDS: FLUTICASONE/UMECLIDIN/VILANTER(100-62.5-25 TRELEGY ELLIPTA) INAHLER IH SCH (10:18)
[2021-08-26] MEDS: PANTOPRAZOLE 40 MG TABLET PO SCH (10:19)
[2021-08-26] MEDS: levETIRAcetam 500 MG TABLET (FP) PO SCH ×2 (10:19→22:11)
[2021-08-26] MEDS: LOSARTAN POTASSIUM 50 MG TABLET PO SCH (10:19)
[2021-08-26] MEDS: HEPARIN NA (PORCINE) 5,000 UNITS/ML 1ML VIAL SQ SCH ×2 (10:19→22:11)
[2021-08-26] MEDS ORDERED: AZITHROMYCIN 250 MG TABLET PO ONE (13:15)
[2021-08-26] MEDS: FLUTICASONE PROP 0.05% 16 GM NASAL SPRAY NS SCH ×2 (14:30→22:12)
[2021-08-27] MEDS: LEVOTHYROXINE NA 50 MCG TABLET (FP) PO SCH (06:21)
[2021-08-27] MEDS: TAMSULOSIN HCL 0.4 MG CAP PO SCH (07:42)
[2021-08-27] MEDS: levETIRAcetam 500 MG TABLET (FP) PO SCH (09:26)
[2021-08-27] MEDS: PANTOPRAZOLE 40 MG TABLET PO SCH (09:26)
[2021-08-27] MEDS: LOSARTAN POTASSIUM 50 MG TABLET PO SCH (09:26)
[2021-08-27] MEDS: ALLOPURINOL 300 MG TABLET (FP) PO SCH ×2 (09:27→09:39)
[2021-08-27] MEDS: HEPARIN NA (PORCINE) 5,000 UNITS/ML 1ML VIAL SQ SCH (09:27)
[2021-08-27] MEDS: FLUTICASONE PROP 0.05% 16 GM NASAL SPRAY NS SCH (09:27)
[2021-08-27] MEDS ORDERED: AZITHROMYCIN 250 MG TABLET PO SCH (10:00)
[2021-08-27 12:44] VITALS: BP 138/84; PULSE 46; TEMP 97.7
== END 2021-08-27 13:20 | disposition home or self-care (01) ==
LOC: JER 09:59 → JERBED 13:36 → UNDOADMOB 13:36 → INTOOBSV 13:36 → J4W 20:17 → JERBED 20:17 → J4W 08-25 12:41
PROVIDERS: ADMIT Internal Medicine; ATTEND Internal Medicine
PROC: 3E033NZ Introduction of Analgesics, Hypnotics, Sedatives into Peripheral Vein, Percutaneous Approach (ICD-10-PCS; principal; 2021-08-25)
PROC: 3E033GC Introduction of Other Therapeutic Substance into Peripheral Vein, Percutaneous Approach (ICD-10-PCS; 2021-08-25)
PROC: 3E0337Z Introduction of Electrolytic and Water Balance Substance into Peripheral Vein, Percutaneous Approach (ICD-10-PCS; 2021-08-25)
PROC: 3E023GC Introduction of Other Therapeutic Substance into Muscle, Percutaneous Approach (ICD-10-PCS; 2021-08-25)
DX: J32.8 Other chronic sinusitis (principal); R51.9 Headache, unspecified; R42 Dizziness and giddiness; C49.9 Malignant neoplasm of connective and soft tissue, unspecified; C78.00 Secondary malignant neoplasm of unspecified lung; C79.31 Secondary malignant neoplasm of brain; R00.1 Bradycardia, unspecified; I44.0 Atrioventricular block, first degree; D64.9 Anemia, unspecified; N40.0 Benign prostatic hyperplasia without lower urinary tract symptoms; I10 Essential (primary) hypertension; Z87.891 Personal history of nicotine dependence; R34 Anuria and oliguria; R07.89 Other chest pain
CPT/HCPCS: 36415; 70450-TC; 70552-TC; 80053; 80061; 81003; 82550; 83036; 84443; 84484; 85025; 93005; 93010; 93306-TC; 93880-TC; 96372; 96374; 96375; 99285-25; A9579; C9803-CS; G0378; J1644; U0003; U0005

== ENCOUNTER 2023-03-07 07:48 | Observation (INO) | payer OTHER ==
[2023-03-07 08:23] VITALS: BMI 22.9
[2023-03-07] MEDS ORDERED: ACETAMINOPHEN 1000 MG/100 ML BAG IVPB ONE (09:11)
[2023-03-07] MEDS ORDERED: METOCLOPRAMIDE HCL INJECTION 10 MG/2 ML VIAL IVPUSH ONE (09:13)
[2023-03-07] MEDS ORDERED: METOCLOPRAMIDE HCL INJECTION 10 MG/2 ML VIAL ONE (09:18)
[2023-03-07] MEDS ORDERED: ACETAMINOPHEN INJECTION 100 ML IVPB ONE (09:19)
[2023-03-07 10:10] LABS: BASO % 0.4 % (0-2.0); EOS % 0.6 % (0-4.5); HEMATOCRIT 32.2 % (35.4-49); HEMOGLOBIN 11.1 GM/dL (11.7-16.9); MCH 32.8 pg (25.7-33.7); MCHC 34.4 g/dl (32.0-35.9); MEAN CELL VOLUME 95.3 fl (80-96); MEAN PLT VOLUME 7.1 fl (7.5-11.1); MONO % 6.2 % (3.8-10.2); NEUT % 74.8 % (42.8-82.8); PLATELET COUNT 179 10^3/uL (134-434); RBC 3.38 M/mm3 (4.00-5.60); RDW 13.6 % (11.9-15.9); WHITE BLOOD COUNT 4.5 K/mm3 (4.0-10.0)
[2023-03-07 10:56] LABS: POTASSIUM 3.9 mmol/L (3.5-5.1)
[2023-03-07 10:58] LABS: ALBUMIN 3.3 g/dl (3.4-5.0); BLOOD UREA NITROGEN 14.2 mg/dL (7-18); CALCIUM 8.9 mg/dL (8.5-10.1); MAGNESIUM 2.8 mg/dL (1.8-2.4)
[2023-03-07 11:02] LABS: URINE APPEARANCE CLEAR; URINE BILIRUBIN NEGATIVE (NEGATIVE); URINE COLOR YELLOW; URINE GLUCOSE (UA) NEGATIVE (NEGATIVE); URINE KETONE NEGATIVE (NEGATIVE); URINE LEUK ESTERASE NEGATIVE (NEGATIVE); URINE NITRITE NEGATIVE (NEGATIVE); URINE PROTEIN NEGATIVE (NEGATIVE); URINE UROBILINOGEN 0.2 mg/dL (0.2-1.0)
[2023-03-07 11:03] LABS: BILIRUBIN,TOTAL 0.5 mg/dL (0.2-1); TOT PROT 9.2 g/dl (6.4-8.2)
[2023-03-07] MEDS ORDERED: ACETAMINOPHEN 325 MG TABLET (FP) PO PRN (13:17)
[2023-03-07] MEDS ORDERED: MECLIZINE HCL 25 MG TABLET (FP) PO PRN (13:18)
[2023-03-07] MEDS ORDERED: MECLIZINE HCL 12.5 MG TABLET PO PRN (13:27)
[2023-03-07] MEDS ORDERED: ASPIRIN 81 MG CHEWABLE TABLETS ONE (13:47)
[2023-03-07] MEDS: ASPIRIN 81 MG CHEWABLE TABLETS PO SCH (14:13)
[2023-03-07] MEDS: TAMSULOSIN HCL 0.4 MG CAP PO SCH (18:07)
[2023-03-07] MEDS: levETIRAcetam 500 MG TABLET (FP) PO SCH (21:22)
[2023-03-07] MEDS: HEPARIN NA (PORCINE) 5,000 UNITS/ML 1ML VIAL SQ SCH (21:23)
[2023-03-07] MEDS ORDERED: levETIRAcetam 500 MG TABLET (FP) PO SCH (22:00)
[2023-03-07] MEDS ORDERED: ATORVASTATIN CA 40 MG TABLET (FP) PO SCH (22:00)
[2023-03-08 06:13] VITALS: RESP 18
[2023-03-08] MEDS ORDERED: LEVOTHYROXINE NA 50 MCG TABLET (FP) PO SCH (07:00)
[2023-03-08] MEDS: TAMSULOSIN HCL 0.4 MG CAP PO SCH (08:31)
[2023-03-08] MEDS: ASPIRIN 81 MG CHEWABLE TABLETS PO SCH (09:34)
[2023-03-08] MEDS: levETIRAcetam 500 MG TABLET (FP) PO SCH (09:42)
[2023-03-08] MEDS: HEPARIN NA (PORCINE) 5,000 UNITS/ML 1ML VIAL SQ SCH (09:45)
[2023-03-08] MEDS ORDERED: PANTOPRAZOLE 40 MG TABLET PO SCH (10:00)
[2023-03-08 14:59] VITALS: BP 98/53; PULSE 49; TEMP 98.3
[2023-03-09] MEDS ORDERED: levETIRAcetam 500 MG TABLET (FP) PO SCH (10:00)
== END 2023-03-08 15:14 | disposition home or self-care (01) ==
LOC: JER 07:48 → JERBED 12:59 → J4W 17:02
PROVIDERS: ADMIT Internal Medicine; ATTEND Internal Medicine
PROC: 3E033NZ Introduction of Analgesics, Hypnotics, Sedatives into Peripheral Vein, Percutaneous Approach (ICD-10-PCS; principal; 2023-03-07)
PROC: 3E023GC Introduction of Other Therapeutic Substance into Muscle, Percutaneous Approach (ICD-10-PCS; 2023-03-07)
PROC: 3E033GC Introduction of Other Therapeutic Substance into Peripheral Vein, Percutaneous Approach (ICD-10-PCS; 2023-03-07)
DX: R42 Dizziness and giddiness (principal); C49.9 Malignant neoplasm of connective and soft tissue, unspecified; C78.00 Secondary malignant neoplasm of unspecified lung; C79.31 Secondary malignant neoplasm of brain; R26.81 Unsteadiness on feet; I10 Essential (primary) hypertension; R56.9 Unspecified convulsions; R00.1 Bradycardia, unspecified; Z87.891 Personal history of nicotine dependence
CPT/HCPCS: 0241U-QW; 36415; 70450-TC; 70551-TC; 71045-TC-FY; 80053; 80177; 81003; 83735; 84484; 85025; 85651; 87086; 93005; 93010; 96372; 96374; 96375; 99285-25; G0378; J1644